=== PATIENT | male | born 1965 | race Caucasian/White ===

== ENCOUNTER 2020-06-05 08:39 | Inpatient (IN) | payer MEDICARE, MEDICAID, SELFPAY ==
[2020-06-05] VITALS (89 sets, daily range): BP systolic 112–160; BP diastolic 72–109; PULSE 91–134; RESP 13–29; TEMP 36.9–37.6; O2SAT 82–97; BMI 26.6
--- NOTE | 2020-06-05 08:46 | W.ED.SOB ---
HPI - SOB/Dyspnea General: Chief Complaint: Fever Stated Complaint: PNEUMONIA, INCREASED TEMP Time Seen by Provider: 06/05/20 08:44 History of Present Illness: HPI Narrative: 55-year-old male who has a history of MS who was accepted by the hospitalist on [facility] ED transfer from [facility]. We did not receive a call from the ED and only became aware when they called to give nursing report. On arrival patient has a cough. Has no pneumonia records reviewed. He has a PEG tube in place and is requiring oxygen mask to maintain sats. MD elicited complaint: shortness of breath Pertinent past history: aspiration Onset (ago): hour(s) Context: recent illness and anxiety Timing: constant Severity: moderate Exacerbating factors: lying flat and coughing Relieving factors: oxygen, rest and bronchodilators Known history of: aspiration pneumonia and other (MS) Associated symptoms: Reports no associated symptoms; Deny abdominal pain, chest pain, dizziness, extremity pain, fever(s), nausea, orthopnea, palpitations, polydipsia, polyuria, syncope or vomiting Treatment prior to arrival: oxygen, bronchodilator and other (Antibiotics) Review of Systems Const: Denies: fever(s), chills, body aches, fatigue, malaise or night sweats Card: Denies: chest pain, palpitations, irregular heart rhythm, edema, syncope, dyspnea on exertion, orthopnea or leg pain with exertion Resp: Reports: dyspnea, productive cough and wheezing; Denies: non-productive cough GI: Denies: abdominal pain, nausea, vomiting, hematemesis, coffee ground emesis, dysphagia, heartburn, diarrhea, constipation, GI cramping, hematochezia or melena : Denies: flank pain, difficulty urinating, dysuria, urinary frequency, urinary urgency, urinary incontinence or hematuria Musc: Denies: neck pain, back pain, extremity pain, extremity swelling, joint pain or joint swelling Skin/Breast: Denies: rash, pruritus or erythema Neuro: Denies: headache(s), numbness in extremities, weakness in extremities, sensory changes, lack of coordination, difficulty walking, frequent falls, dizziness, vertigo or confusion Psych: Denies: anxiety, depression, loss of interest, visual hallucinations, auditory hallucinations, suicidal ideation or homicidal ideation Endo: Denies: polyuria, polydipsia, tired all the time or cold intolerance Peewee/Lymph: Denies: easy bruising, easy bleeding, petechiae, enlarged lymph nodes or tender lymph nodes PFSH ED PFSH: Medical History Acute and chronic respiratory failure with hypoxia Aspiration pneumonia Depression DNR (do not resuscitate) Hypertension Multiple sclerosis [facility] resident Surgical History (Updated 06/05/20 @ 13:11 by Shimon Mccann MD) H/O right inguinal hernia repair H/O umbilical hernia repair S/P percutaneous endoscopic gastrostomy (PEG) tube placement S/P rotator cuff repair Family History (Updated 06/05/20 @ 13:10 by Shimon Mccann MD) Other Dementia Psychiatric illness Social History (Updated 06/05/20 @ 13:11 by Shimon Mccann MD) Adopted: No Caregiver/support person: Yes Lives independently: No Housing: Retirement Physical Exam Const: COMMON NORMALS: no acute distress GENERAL APPEARANCE: cooperative and comfortable HENMT: COMMON NORMALS: normocephalic, atraumatic, hearing grossly normal bilaterally, external ears normal, EAC's normal, TM's normal bilaterally, Normal nasal mucous membranes and turbinates present, moist oral mucous membranes and oropharynx normal HEAD & SCALP: normocephalic and atraumatic NOSE: Normal nasal mucous membranes and turbinates present EXTERNAL EAR: Yes external ears normal EXTERNAL AUDITORY CANAL: EAC's normal TYMPANIC MEMBRANE: TM's normal bilaterally Eye: COMMON NORMALS: Equal, round and reactive pupils present, EOMs intact bilaterally, conjunctivae normal and no scleral icterus CONJUNCTIVA: Yes conjunctivae normal PUPIL: Yes Equal, round and reactive pupils present Neck/C-Spine: COMMON NORMALS: full ROM, no lymphadenopathy, supple and no JVD Lymph: LYMPHATIC: no lymphadenopathy noted and no lymphedema noted Resp: AUSCULTATION: rales, wheezes, diminished lung sounds and bronchial breath sounds Cardio: COMMON NORMALS: no JVD, regular rate, regular rhythm and No murmurs present (Cardio) RATE: regular rate RHYTHM: regular rhythm GI: COMMON NORMALS: Soft to palpation and No hepatosplenomegaly present AUSCULTATION: Yes normoactive bowel sounds PALPATION: Yes Soft to palpation, No Tenderness to palpation present (GI), No Guarding due to palpation present (GI) and Yes No hepatosplenomegaly present Extremity: COMMON NORMALS: normal to inspection, capillary refill normal, no clubbing, cyanosis or edema, no calf tenderness and no pedal edema Skin: COMMON NORMALS: no rashes or lesions noted GENERAL SKIN EXAM: no rashes or lesions noted Course Vital Signs: Vital signs: Vital Signs Temperature 99.6 F 06/05/20 08:48 Pulse Rate 106 H 06/05/20 12:30 Respiratory Rate 24 H 06/05/20 12:30 Blood Pressure 135/84 06/05/20 12:30 Pulse Oximetry 90 06/05/20 12:30 Discharge Plan Discharge Patient Disposition: Admitted As Inpatient Admit Provider: Shimon Mccann Discharge Date/Time: 06/05/20 11:02 Coding Level of Care Code ED Light Rail Signal Technician for Macie Klein
--- NOTE | 2020-06-05 10:46 | PC.RESP ---
Dr. Valencia requested NIF. NIF results Greater than negative 60.
--- NOTE | 2020-06-05 11:00 | PC.NURSE ---
admission Patient was transferred to this unit from ED. Pt was able to voice wants and needs and stated that his head and his buttocks hurt at an 8/10. Red areas were noted to buttocks and groin. Venturi mask was in place at 4L/min. Respirations were shallow and non labored. 20 G IV was intact in the left hand. Patient is alert and oriented X 3.
[2020-06-05 11:49] LABS: Basophils # 0.1 10^3/uL (0.0-0.1); Basophils % 0.2 %; Eosinophils % 0.1 %; Hematocrit 48.3 % (42.0-52.0); Hemoglobin 15.9 g/dL (11.7-16.6); Lymphocytes # 0.7 10^3/uL (0.8-4.8); Lymphocytes % 3.1 %; Mean Corpuscular HGB Conc 32.9 g/dL (30.0-36.0); Mean Corpuscular Hemoglobin 28.5 pg (28.0-34.0); Mean Corpuscular Volume 86.7 fL (80-94); Monocytes # 1.2 10^3/uL (0.2-0.9); Monocytes % 5.4 %; Neutrophils % 90.3 %; Nucleated Red Blood Cells % 0 %; Platelet Count 177 10^3/cmm (130-400); Red Blood Count 5.57 10^6/uL (4.1-5.3); Red Cell Distribution Width 14.6 % (12.1-15.1); White Blood Count 22.2 10^3/uL (4.0-10.0)
--- NOTE | 2020-06-05 12:05 | PC.NURSE ---
Attempted to call mother, Kristin, no answer.
--- NOTE | 2020-06-05 12:05 | PC.NURSE ---
[facility] for [facility] administration. They called back and stated they would bring it.
--- NOTE | 2020-06-05 12:35 | PC.NURSE ---
Kristin, mother on phone, up dated her on pt's condition; pneumonia, on oxygen, NPO for now, suspect aspiration pneumonia, meds will be per PEG. Pt has been repositioned.
[2020-06-05 12:48] LABS: Thyroid Stimulating Hormone 0.84 uIU/mL (0.27-4.20)
--- NOTE | 2020-06-05 13:03 | P.HP_ITS ---
Providers/Chief Complaint Admitting Physician: Shimon Mccann MD Chief Complaint: PNEUMONIA, INCREASED TEMP History of Present Illness Jeancarlos Cota is a 55 year old male with past medical history of progressive multiple sclerosis with multiple neurological deficit on PEG tube feeds because of fear of aspiration, chronic aspiration as patient continues to eat, hypertension, PEG tube placement, history of bilateral lower lobe pneumonia who lives at [facility], DNR who was transferred from [facility] today. Most of the history given through the nurse at [facility]. Patient has been at his baseline health till a week ago then then he started having difficulty in breathing and was requiring oxygen to keep her saturation over 92%. Chest x-ray done on June 01 was consistent with mild pneumonia at [facility] he was started on doxycycline. He was also started on 3 days of IV steroids. After that patient had mild improvement in oxygen requirement. Today morning during evaluation he was saturating 86% which did not improve with 4 L of nasal cannula supplementation so he was brought in to the hospital. [facility] living asked for the report patient has not had any fever, nausea, diarrhea, vomiting. On my evaluation patient was saturating 92% on 5 L Venturi mask, blood pressure 135/80 mmHg, heart rate of 102 bpm, febrile up to 99.6 Fahrenheit. Review of Systems General: Reports: ROS unobtainable due to mental status Medications/Allergies Home Medications Medication Instructions Recorded Confirmed Last Taken Type Lactobacillus acidophilus 1 tab PO DAILY 06/05/20 06/05/20 06/05/20 History [Acidophilus] albuterol sulfate 2.5 mg INHALATION Q4H PRN 06/05/20 06/05/20 06/05/20 History amlodipine 10 mg PO DAILY 06/05/20 06/05/20 06/05/20 History atenolol 100 mg PO DAILY 06/05/20 06/05/20 06/05/20 History baclofen 10 mg PO QID 06/05/20 06/05/20 06/05/20 History calcium carbonate 500 mg PO DAILY 06/05/20 06/05/20 06/05/20 History cetirizine 10 mg PO DAILY 06/05/20 06/05/20 06/05/20 History dalfampridine [Ampyra] 10 mg PO Q12H 06/05/20 06/05/20 06/05/20 History docusate sodium [Colace] 100 mg PO BID 06/05/20 06/05/20 06/05/20 History doxycycline hyclate 100 mg PO BID 06/05/20 06/05/20 06/05/20 History gabapentin 300 mg PO TID 06/05/20 06/05/20 06/05/20 History hydrocodone-acetaminophen 1 tab PO Q6H PRN 06/05/20 06/05/20 06/04/20 History levalbuterol HCl [Xopenex] 1.25 mg INHALATION Q6H PRN 06/05/20 06/05/20 06/04/20 History multivitamin 1 tab PO DAILY 06/05/20 06/05/20 06/05/20 History polyethylene glycol 3350 [Miralax] 17 g PO DAILY 06/05/20 06/05/20 06/05/20 History potassium chloride 20 meq PO BID 06/05/20 06/05/20 06/05/20 History sertraline 50 mg PO DAILY 06/05/20 06/05/20 06/05/20 History teriflunomide [Aubagio] 14 mg PO DAILY 06/05/20 06/05/20 06/04/20 History Allergies Allergy/AdvReac Type Severity Reaction Status Date / Time amoxicillin Allergy Unknown Unknown Verified 06/05/20 11:00 erythromycin base Allergy Unknown Unknown Verified 06/05/20 11:00 glatiramer (copolymer 1) Allergy Unknown Unknown Verified 06/05/20 11:00 [From Copaxone] guaifenesin [From Mucinex] Allergy Unknown Unknown Verified 06/05/20 11:00 interferon beta-1a Allergy Unknown Unknown Verified 06/05/20 11:00 [From Avonex] PFSH Acute PFSH: Medical History Acute and chronic respiratory failure with hypoxia Aspiration pneumonia Depression DNR (do not resuscitate) Hypertension Multiple sclerosis [facility] resident Surgical History (Updated 06/05/20 @ 13:11 by Shimon Mccann MD) H/O right inguinal hernia repair H/O umbilical hernia repair S/P percutaneous endoscopic gastrostomy (PEG) tube placement S/P rotator cuff repair Family History (Updated 06/05/20 @ 13:10 by Shimon Mccann MD) Other Dementia Psychiatric illness Social History (Updated 06/05/20 @ 13:11 by Shimon Mccann MD) Adopted: No Caregiver/support person: Yes Lives independently: No Housing: [facility] Vitals/I&O/Wt Last Vital Signs Temp 99.6 F 06/05/20 08:48 Pulse 106 H 06/05/20 12:30 Resp 24 H 06/05/20 12:30 BP 135/84 06/05/20 12:30 Pulse Ox 90 06/05/20 12:30 06/04/20 06/05/20 06/05/20 22:59 06:59 14:59 Output Total 400 / 400 Balance -400 / -400 Weight last 48 hrs Weight 72.6 kg Physical Exam Narrative: EXAM NARRATIVE: General: No acute distress, AO x3, quadriplegic, communicating through garbled words HEENT: PERRLA, pupils bilaterally equal and reactive Chest: Normal vesicular breath sounds, bilateral coarse crackles present right more than left anterior more than posterior, equal good air entry bilaterally CVS: S1-S2 regular, no murmurs, tachycardia, no gallops, no rubs Abdomen: Soft, nontender, no organomegaly, bowel sounds present Neuro: Quadriplegic, AO x3 Data : 06/05/20 11:39 A&P Assessment and plan (1) Sepsis: Status: Acute (2) Acute and chronic respiratory failure with hypoxia: Status: Acute (3) Multiple sclerosis: Status: Acute (4) Aspiration pneumonia: Status: Acute (5) S/P percutaneous endoscopic gastrostomy (PEG) tube placement: Status: Acute (6) Hypertension: Status: Acute (7) DNR (do not resuscitate): Status: Acute (8) Depression: Status: Acute (9) [facility] resident: Status: Acute Additional A&P Information Admit to ICU. Sepsis along with acute on chronic hypoxic respiratory failure due to aspiration pneumonia in setting of multiple sclerosis.: Sepsis criteria met with tachycardia, fever, leukocytosis. Patient hypoxic on room air. Patient has PEG tube but he continues to eat. Patient is aware that he will have continuous aspiration if he continues to eat. Patient is a DNR. COVID-19 has been sent out from the ER. Isolation precaution Dr. dempsey Check CBC, CMP, procalcitonin, lactate, TSH, blood culture, sputum culture, UA, urine culture, MRSA, urine for Legionella. For now start patient on vancomycin and Zosyn both renally dosed. Normal saline to 75 cc/h. Advair and Spiriva. Oxygen supplementation keeping saturation over 90%. Check NIF study. Patient is DNR. If abnormal will start patient on positive airway ventilation with BiPAP or high flow. Keep mean arterial pressure over 65 mmHg. Hypertension: For now blood pressure is normal. Continue with home dose of amlodipine and atenolol. N.p.o. Heparin for DVT prophylaxis. Protonix for PUD prophylaxis. Continue chronic medication like gabapentin, sertraline, calcium carbonate. We will change medication as per the clinical picture and results of the blood work. Patient's mother Ms. Foster has been updated regarding his health and all the questions have been answered. Attestations Medical Necessity Statement*: Sepsis, acute on hypoxic respiratory failure, pneumonia, multiple sclerosis Time Spent in Patient Care: Greater than 35 minutes (>than 50% of time spent in counselling and/or direct pt care on unit) . Coding Level of Care Code Acute Social Work Program Coordinator for [facility] Fwd Diagnoses Sepsis A41.9 Acute and chronic respiratory failure with hypoxia J96.21 Multiple sclerosis G35 Aspiration pneumonia J69.0 S/P percutaneous endoscopic gastrostomy (PEG) tube placement Z93.1 Hypertension I10 DNR (do not resuscitate) Z66 Depression F32.9 [facility] resident Z59.3
--- NOTE | 2020-06-05 13:43 | PC.NURSE ---
Mother, Kristin, not answering phone, continues ringing, allergy list to be clarified.
[2020-06-05] MEDS: HYDROcodone-acetaminophen 10-325 mg Tablet 1 TAB PO ×2 (13:59→22:27)
[2020-06-05] MEDS: sodium chloride 0.9% 1,000 ML 100 ML IV ×2 (14:00→22:25)
[2020-06-05] MEDS: enoxaparin 40 mg/0.4 mL Syringe SUBCUT (14:00)
[2020-06-05] MEDS: gabapentin 300 mg Capsule PO ×2 (14:01→22:25)
[2020-06-05] MEDS: morphine 4 mg/mL SDV 1 mL 2 MG IVP ×2 (16:09→19:09)
[2020-06-05] MEDS: aztreonam 2,000 MG in sodium chloride 0.9% (plus) 100 ML 200 MG IV ×2 (16:10→22:28)
[2020-06-05 16:18] LABS: Lactate (Lactic Acid level) 1.3 mmol/L (0.5-2.2)
[2020-06-05 16:19] LABS: ABG PCO2 35.1 mmHg (35-45); ABG PH Result 7.43 (7.35-7.45); Alveolar-Arterial Oxygen Gradi 61.6 mmHg (5-10); Arterial Blood Gas Hematocrit 50.1 % (42-52); Base Excess ABG -0.1 mmol/L (-2.0-2.0); Blood Gas Allen Test Pos; Blood Gas Sample Site Brachial, right; Blood Gas Sample Type Arterial; Carboxyhemoglobin 1.6 %THgb (0.4-20.1); HCO3 ABG 23.5 mmol/L (22-26); HGB O2 Sat 83.9 % (95-100); Ionized Calcium Level - ABG 1.1 mmol/L (1.1-1.4); Methemoglobin 0.9 % (0.4-1.5); Oxygen Device OXY MASK; Oxygen Saturation ABG 86.1; Potassium Level - ABG 3.7 mmol/L (3.5-5.0); Total Hemoglobin 16.3 g/dL (14-18)
--- NOTE | 2020-06-05 16:39 | PC.NURSE ---
Desecration noted. O2 sats at 82%, increased lpm per oxymask to 15liers. O2 sats started increasing to 87-88% but then declined again . Rt called to bedside. Dr Cerda notified. Morphine 1 mg IV and ABGs ordered and completed. Pt needed repositioning, done with multiple attempts until he was comfortable. RT now at bedside starting Heated Hi flowat 90%FIO2 and 20lpm.
--- NOTE | 2020-06-05 16:49 | PC.NURSE ---
Phone call Mother called to check on patients status and was updated.
--- NOTE | 2020-06-05 17:03 | XRR_ITS ---
PROCEDURE INFORMATION: Exam: XR Chest, 1 View Exam date and time: 06/05/2020 8:46 PM Age: 55 years old Clinical indication: Condition or disease; Lung condition and disease; Pneumonia; Additional info: Pna TECHNIQUE: Imaging protocol: XR of the chest Views: 1 view. COMPARISON: CR Chest 1 [place] [id number] 10/16/2019 7:41 AM FINDINGS: Lungs: Pulmonary venous congestion. Areas of parenchymal consolidation of the lower lungs. Pleural space: No pneumothorax. Heart/Mediastinum: Cardiomegaly. Vasculature: Calcified thoracic aorta. Bones/joints: Osteopenia. Soft tissues: The chest is limited by rotation. Other findings: Likely small left-sided effusion. XR/XR chest 1V portable [id number] IMPRESSION: 1. Cardiomegaly with pulmonary venous congestion. 2. Areas of consolidation lower lungs greater on the left which could indicate partial atelectasis or superimposed pneumonia. 3. Likely small left effusion.
[2020-06-05] MEDS: nystatin powder 15 gm Btl 1 APPLIC TOPICAL (17:20)
[2020-06-05] MEDS: baclofen 10 mg Tablet PO ×2 (17:21→22:25)
[2020-06-05 17:46] LABS: Reflex Lactate Order REFLEX LACTIC ORDERD
[2020-06-05 17:56] LABS: Bilirubin Urine Neg (NEGATIVE); Blood Urine Neg (Negative); Glucose Urine UA Norm (Normal); Ketones Urine Negative (Negative); Leukocyte Esterase Urine 1+ (Negative); Nitrate Urine Negative (Negative); Protein Urine Neg (Negative); Specific Gravity, Urine 1.005 (1.005-1.030); Sulfosalicylic Acid Urine Negative (Negative); Urine Appearance Hazy (CLEAR); Urine Color Yellow (Yellow); Urobilinogen Urine Norm (Negative); pH Urine 8 (5-7)
[2020-06-05 17:57] LABS: Add Urine Culture? Yes; Amorphous Sediment Urine 1+; Bacteria Urine 2+; Squamous Epithelial Cell Urine 0-4 (0-5)
[2020-06-05 19:33] LABS: Lactic Acid level (Lactate) 1.7 mmol/L (0.5-2.2)
[2020-06-05 19:46] LABS: NT Pro B Type Natriuretic Pept 806 pg/mL (0-125)
[2020-06-05 19:57] LABS: Alanine Aminotransferase 28 U/L (0-41); Albumin Level 3.4 g/dL (3.5-5.2); Alkaline Phosphatase 78 IU/L (40-130); Anion Gap 22.9 (5-19); Aspartate Amino Transferase 17 U/L (0-40); Blood Urea Nitrogen 9 mg/dL (6-20); Calcium 8.3 mg/dL (8.5-10.5); Carbon Dioxide 17 mmol/L (22-29); Chloride 92 mmol/L (98-107); Globulin 2.6 g/dL (1.3-4.6); Glomerular Filtration Rate 495.2 mL/min (90-130); Glucose 132 mg/dL (65-115); Iron 163 ug/dL (59-158); Osmolality Calculated 264 mOsm/kg (285-295); Potassium 3.9 mmol/L (3.5-5.1); Sodium 128 mmol/L (136-145); Total Bilirubin 1.8 mg/dL (0.15-1.2)
[2020-06-05 20:07] LABS: Percent Saturation 81.9 % (20-50); Total Iron Binding Capacity 199 mcg/dl; Unsaturated Iron Binding 36 ug/dL (112-347)
[2020-06-06] VITALS (42 sets, daily range): BP systolic 94–152; BP diastolic 66–94; PULSE 91–122; RESP 13–25; TEMP 36.7; O2SAT 85–96
[2020-06-06 05:52] LABS: Hematocrit 45.8 % (42.0-52.0); Mean Corpuscular HGB Conc 32.8 g/dL (30.0-36.0); Mean Corpuscular Hemoglobin 28.7 pg (28.0-34.0); Mean Corpuscular Volume 87.6 fL (80-94); Mean Platelet Volume 11.3 fL (7.4-10.4); Platelet Count 136 10^3/cmm (130-400); Red Blood Count 5.23 10^6/uL (4.1-5.3); Red Cell Distribution Width 14.5 % (12.1-15.1); White Blood Count 20.3 10^3/uL (4.0-10.0)
[2020-06-06 06:40] LABS: Absolute Segmented Neutrophil 17.7 10/cmm (1.6-7.1); Lymphocytes 1 %; Monocytes Absolute 0.4 10^3/cmm (0.1-0.6); Segmented Neutrophils 87 %; Total Cells Counted 100 (0-100)
[2020-06-06 06:41] LABS: Absolute Neutrophil 19.7 10^3/cmm (1.4-6.5); Platelet Estimate Decreased (Normal)
[2020-06-06 06:43] LABS: Alanine Aminotransferase 27 U/L (0-41); Albumin Level 2.9 g/dL (3.5-5.2); Alkaline Phosphatase 74 IU/L (40-130); Anion Gap 13.7 (5-19); Aspartate Amino Transferase 16 U/L (0-40); Blood Urea Nitrogen 8 mg/dL (6-20); Calcium 8.1 mg/dL (8.5-10.5); Carbon Dioxide 20 mmol/L (22-29); Chloride 104 mmol/L (98-107); Globulin 2.5 g/dL (1.3-4.6); Glucose 173 mg/dL (65-115); Osmolality Calculated 278 mOsm/kg (285-295); Potassium 3.7 mmol/L (3.5-5.1); Sodium 134 mmol/L (136-145); Total Bilirubin 1.2 mg/dL (0.15-1.2); Total Protein 5.4 g/dL (6.6-8.7)
[2020-06-06] MEDS: aztreonam 2,000 MG in sodium chloride 0.9% (plus) 100 ML 200 MG IV ×3 (08:02→22:43)
[2020-06-06] MEDS: atenolol 50 mg Tablet 100 MG PO (08:03)
[2020-06-06] MEDS: sertraline 50 mg Tablet PO (08:03)
[2020-06-06] MEDS: nystatin powder 15 gm Btl 1 APPLIC TOPICAL ×2 (08:03→18:27)
[2020-06-06] MEDS: gabapentin 300 mg Capsule PO ×3 (08:03→22:43)
[2020-06-06] MEDS: calcium carbonate 500 mg Chew Tablet PO (08:04)
[2020-06-06] MEDS: baclofen 10 mg Tablet PO ×4 (08:04→22:43)
[2020-06-06] MEDS: amlodipine 10 mg Tablet PO (08:04)
[2020-06-06 08:11] LABS: Coronavirus Lab Test PTC NOT DETECTED
[2020-06-06] MEDS: HYDROcodone-acetaminophen 10-325 mg Tablet 1 TAB PO ×2 (09:37→16:50)
--- NOTE | 2020-06-06 09:52 | PM.PN ---
Subjective Subjective: Interval history: Patient continues to remain on high flow. He continues to remain on high flow. At present he is on 85% 35 L saturating 91%. Patient remains to look comfortable. He has remained hemodynamically stable. Vitals/I&O/Wt Last Vital Signs Temp 98.0 F 06/06/20 08:00 Pulse 115 H 06/06/20 08:41 Resp 19 H 06/06/20 08:41 BP 152/94 06/06/20 08:00 Pulse Ox 91 06/06/20 08:41 06/05/20 06/06/20 06/06/20 22:59 06:59 14:59 Intake Total 1450 / 1550 180 / 180 Output Total 400 / 800 1400 / 2200 Balance 1050 / 750 -1400 / -650 180 / 180 Weight last 48 hrs Weight 72.6 kg Physical Exam Narrative: EXAM NARRATIVE: General: No acute distress, AO x3, quadriplegic, communicating through garbled words HEENT: PERRLA, pupils bilaterally equal and reactive Chest: Normal vesicular breath sounds, bilateral coarse crackles present right more than left anterior more than posterior, equal good air entry bilaterally CVS: S1-S2 regular, no murmurs, tachycardia, no gallops, no rubs Abdomen: Soft, nontender, no organomegaly, bowel sounds present Neuro: Quadriplegic, AO x3 Data : 06/06/20 05:25 06/06/20 05:25 Micro: Microbiology 06/05/20 14:30 Legionella Urinary Antigen - Final Urine Catheterized 06/05/20 14:26 Blood Culture - Preliminary Blood SPECIMEN COLLECTED A&P Assessment and plan (1) ARDS (adult respiratory distress syndrome): Status: Acute (2) Sepsis: Status: Acute (3) Acute and chronic respiratory failure with hypoxia: Status: Acute (4) Multiple sclerosis: Status: Acute (5) Aspiration pneumonia: Status: Acute (6) S/P percutaneous endoscopic gastrostomy (PEG) tube placement: Status: Acute (7) Hypertension: Status: Acute (8) DNR (do not resuscitate): Status: Acute (9) Depression: Status: Acute (10) [facility] resident: Status: Acute Additional A&P Information ARDS: Secondary to chronic aspiration with multiple sclerosis. Sepsis along with acute on chronic hypoxic respiratory failure due to aspiration pneumonia in setting of multiple sclerosis.: Sepsis criteria met with tachycardia, fever, leukocytosis. Continue with room air. Keep n.p.o. Medications through PEG tube. For now continue with vancomycin and aztreonam. As patient has a history of possible allergy to penicillin. We can do a penicillin test later in the day. Stop IV fluids for now. Given ARDS we will try to get him negative. Give Lasix 40 mg IV stat. Goal 1 to 2 L negative in next 24 hours. DuoNeb's as needed, DuoNebs every 4 hours, budesonide twice daily. Chest PT with chest vest and saline nebulization. Most likely will require frequent suctioning as patient has poor cough because of underlying multiple sclerosis. Patient is DNR. C/w solumedrol 40 mg IV QD for now. NIF study done yesterday We will consult pulmonology. Case discussed with Dr. Rowan. He agrees with the same. Keep mean arterial pressure over 65 mmHg. Hypertension: For now blood pressure is normal. Continue with home dose of amlodipine and atenolol. N.p.o. Heparin for DVT prophylaxis. Protonix for PUD prophylaxis. Continue chronic medication like gabapentin, sertraline, calcium carbonate. We will change medication as per the clinical picture and results of the blood work. Patient's mother Ms. Foster has been updated regarding his health and all the questions have been answered. Attestations Medical Necessity Statement*: ARDS, Sepsis, Time Spent in Patient Care: Greater than 35 minutes (>than 50% of time spent in counselling and/or direct pt care on unit). Critical Care Time: Critical Care Time (min): 80 Coding Level of Care Code Acute Credit Risk Review Officer for [facility] Fwd Diagnoses ARDS (adult respiratory distress syndrome) J80 Sepsis A41.9 Acute and chronic respiratory failure with hypoxia J96.21 Multiple sclerosis G35 Aspiration pneumonia J69.0 S/P percutaneous endoscopic gastrostomy (PEG) tube placement Z93.1 Hypertension I10 DNR (do not resuscitate) Z66 Depression F32.9 [facility] resident Z59.3
--- NOTE | 2020-06-06 10:32 | CT_ITS ---
WS: [id number] CT CHEST WITHOUT INTRAVENOUS CONTRAST HISTORY: Pneumonia TECHNIQUE: Contiguous 5 mm axial imaging performed on the thorax. Coronal and sagittal reformats are submitted. All CT scans at [facility] use at least one of these dose optimization techniq ues: automated exposure control; mA and/or kV adjustment per patient size (includes targeted exams wh ere dose is matched to clinical indication); or iterative reconstruction. CONTRAST: None DLP: 905.64 mGy-cm. COMPARISON: 10/10/2019 and 12/26/2015 Lungs and central airway: Multi lobar areas of dense consolidation. There is nodularity within these areas of consolidation. Some consolidations. The periphery while others extend to the periphery of th e lungs. Majority of the consolidation is in the RIGHT upper and lower lobes. There is atelectasis at the lung bases bilaterally. Small LEFT pleural effusion. Pleura: Small LEFT pleural effusion. Heart and pericardium: Normal size heart. No pericardial effusion. Mediastinum and idania: No adenopathy. Vessels: Mild atherosclerosis aorta. Normal size pulmonary artery. Chest wall and lower neck: No soft tissue masses. Upper abdomen: There is a PEG tube present. Prior cholecystectomy. Pleural-based cystic mass with ca lcification at the RIGHT lung base and posterior to the liver. Stable over multiple prior years. Osseous structures: No osteoblastic or osteolytic bone disease. CT/CT chest wo con [id number] IMPRESSION: 1. Multifocal areas of dense consolidation and nodularity. Mild improvement si nce 10/10/2019. Pneumonia and chronic interstitial lung disease within the diff erential. Recommend continued CT follow-up to be ensure resolution and document stability. Bronchoscopy may be necessary for diagnosis. 2. Dense consolidations at the lung bases from atelectasis and small LEFT pleu ral effusion. 3. Cardiomegaly. 4. No adenopathy on this unenhanced exam. 5. PEG tube and prior cholecystectomy.
[2020-06-06 10:47] LABS: ABG PCO2 38.5 mmHg (35-45); ABG PH Result 7.41 (7.35-7.45); Alveolar-Arterial Oxygen Gradi 497.7 mmHg (5-10); Arterial Blood Gas Hematocrit 48.2 % (42-52); Base Excess ABG -0.2 mmol/L (-2.0-2.0); Blood Gas Sample Site Brachial, right; Blood Gas Sample Type Arterial; Carboxyhemoglobin 1.2 %THgb (0.4-20.1); HCO3 ABG 24.3 mmol/L (22-26); HGB O2 Sat 88.2 % (95-100); Ionized Calcium Level - ABG 1.2 mmol/L (1.1-1.4); Methemoglobin 0.7 % (0.4-1.5); Oxygen Device NC; PO2 ABG 48.3 mmHg (80.0-100.0); Potassium Level - ABG 3.5 mmol/L (3.5-5.0); Total Hemoglobin 15.7 g/dL (14-18)
[2020-06-06] MEDS: FUROsemide 10 mg/mL SDV 4mL 40 MG IVP (11:18)
--- NOTE | 2020-06-06 11:50 | PC.NURSE ---
CT Patient was taken to CT between 1030 and 1100. Vitals WNL. Patient tolerated well.
--- NOTE | 2020-06-06 13:49 | PC.NURSE ---
Attempted to contact mother, met with busy signal, regarding contacting Father Gibran, per her request. Father Gibran, contacted. He stated he was in [place] he would call Syed Kimbrough, to come, who is in [place].
[2020-06-06] MEDS: enoxaparin 40 mg/0.4 mL Syringe SUBCUT (14:07)
[2020-06-06] MEDS: ipratropium-albuterol 3 mL Neb INHALATION ×2 (14:32→23:27)
--- NOTE | 2020-06-06 16:05 | PC.NURSE ---
Addendum entered by GENESIS Oliveros 06/06/20 16:10: Sponge Buffer wishes to be called in decline of condition. [phone] Original Note: Color Straining Bag Washer came to visit patient and introduced himself as Father Luis E. Patient welcomed and thanked him for his visit.
[2020-06-06 19:06] LABS: Vancomycin Trough 20.3 ug/mL (10-15)
[2020-06-06] MEDS: budesonide 0.5 mg/2 mL Neb INHALATION (19:35)
[2020-06-06] MEDS: morphine 4 mg/mL SDV 1 mL 2 MG IVP (22:44)
[2020-06-07] VITALS (33 sets, daily range): BP systolic 94–130; BP diastolic 62–89; PULSE 77–102; RESP 13–22; TEMP 36.3–37; O2SAT 86–97
[2020-06-07] MEDS: ipratropium-albuterol 3 mL Neb INHALATION ×4 (02:00→20:05)
[2020-06-07 04:40] LABS: Basophils % 0.1 %; Hemoglobin 13.8 g/dL (11.7-16.6); Lymphocytes # 0.6 10^3/uL (0.8-4.8); Lymphocytes % 2.8 %; Mean Corpuscular HGB Conc 33.7 g/dL (30.0-36.0); Mean Corpuscular Hemoglobin 29.1 pg (28.0-34.0); Mean Corpuscular Volume 86.5 fL (80-94); Mean Platelet Volume 11.1 fL (7.4-10.4); Monocytes # 1.1 10^3/uL (0.2-0.9); Monocytes % 5.7 %; Neutrophils # 17.9 10^3/uL (1.8-7.7); Neutrophils % 90.7 %; Nucleated Red Blood Cells % 0 %; Platelet Count 170 10^3/cmm (130-400); Red Blood Count 4.74 10^6/uL (4.1-5.3); Red Cell Distribution Width 14.4 % (12.1-15.1); White Blood Count 19.7 10^3/uL (4.0-10.0)
[2020-06-07] MEDS: aztreonam 2,000 MG in sodium chloride 0.9% (plus) 100 ML 200 MG IV ×3 (07:26→22:13)
[2020-06-07] MEDS: amlodipine 10 mg Tablet PO (08:49)
[2020-06-07] MEDS: calcium carbonate 500 mg Chew Tablet PO (08:49)
[2020-06-07] MEDS: atenolol 50 mg Tablet 100 MG PO (08:49)
[2020-06-07] MEDS: baclofen 10 mg Tablet PO ×4 (08:49→22:12)
[2020-06-07] MEDS: sertraline 50 mg Tablet PO (08:49)
[2020-06-07] MEDS: gabapentin 300 mg Capsule PO ×3 (08:50→22:12)
[2020-06-07] MEDS: nystatin powder 15 gm Btl 1 APPLIC TOPICAL ×2 (08:50→17:56)
[2020-06-07] MEDS: budesonide 0.5 mg/2 mL Neb INHALATION ×2 (10:33→19:52)
[2020-06-07] MEDS: HYDROcodone-acetaminophen 10-325 mg Tablet 1 TAB PO ×2 (10:41→22:12)
[2020-06-07 10:43] LABS: ABG PCO2 37.5 mmHg (35-45); ABG PH Result 7.46 (7.35-7.45); Alveolar-Arterial Oxygen Gradi 440.4 mmHg (5-10); Base Excess ABG 2.7 mmol/L (-2.0-2.0); Blood Gas Allen Test Pos; Blood Gas Sample Site Radial, left; Blood Gas Sample Type Arterial; Carboxyhemoglobin 0.3 %THgb (0.4-20.1); HCO3 ABG 26.6 mmol/L (22-26); HGB O2 Sat 94.8 % (95-100); Ionized Calcium Level - ABG 1.2 mmol/L (1.1-1.4); Methemoglobin 0.7 % (0.4-1.5); Oxygen Saturation ABG 95.8; PO2 ABG 70.4 mmHg (80.0-100.0); Potassium Level - ABG 3.2 mmol/L (3.5-5.0); Total Hemoglobin 14.3 g/dL (14-18)
[2020-06-07] MEDS: enoxaparin 40 mg/0.4 mL Syringe SUBCUT (13:48)
--- NOTE | 2020-06-07 16:01 | P.PN_ITS ---
Subjective Subjective: Interval history: Patient continues to remain on high flow. He continues to remain on high flow. At present he is on 85% 35 L saturating 91%. Patient remains to look comfortable. He has remained hemodynamically stable. Vitals/I&O/Wt Last Vital Signs Temp 97.3 F L 06/07/20 08:00 Pulse 89 06/07/20 15:00 Resp 16 06/07/20 15:00 BP 105/73 06/07/20 15:00 Pulse Ox 92 06/07/20 15:00 06/07/20 06/07/20 06/07/20 06:59 14:59 22:59 Intake Total 350 / 2010 100 / 100 250 / 350 Output Total 300 / 2300 Balance 50 / -290 100 / 100 250 / 350 Physical Exam Narrative: EXAM NARRATIVE: General: No acute distress, AO x3, quadriplegic, communicating through garbled words HEENT: PERRLA, pupils bilaterally equal and reactive Chest: Normal vesicular breath sounds, bilateral coarse crackles present right more than left anterior more than posterior, equal good air entry bilaterally CVS: S1-S2 regular, no murmurs, tachycardia, no gallops, no rubs Abdomen: Soft, nontender, no organomegaly, bowel sounds present Neuro: Quadriplegic, AO x3 Urinary Catheter Management^: Wei: Cath Placed During This Visit: no Reason for Continuing Indwelling Catheter: Accurate Measurement of Urinary Output in Critically Ill Patients Data : 06/07/20 03:52 06/06/20 05:25 Micro: Microbiology 06/05/20 14:26 Blood Culture - Preliminary Blood NEGATIVE TO DATE 06/05/20 14:27 MRSA Culture - Final Nose A&P Assessment and plan (1) ARDS (adult respiratory distress syndrome): Status: Acute (2) Sepsis: Status: Acute (3) Acute and chronic respiratory failure with hypoxia: Status: Acute (4) Multiple sclerosis: Status: Acute (5) Aspiration pneumonia: Status: Acute (6) S/P percutaneous endoscopic gastrostomy (PEG) tube placement: Status: Acute (7) Hypertension: Status: Acute (8) DNR (do not resuscitate): Status: Acute (9) Depression: Status: Acute (10) senior living resident: Status: Acute Additional A&P Information ARDS: Secondary to chronic aspiration with multiple sclerosis. Sepsis along with acute on chronic hypoxic respiratory failure due to aspiration pneumonia in setting of multiple sclerosis.: Sepsis criteria met with tachycardia, fever, leukocytosis. Continue with room air. Keep n.p.o. Medications through PEG tube. For now continue with vancomycin and aztreonam. As patient has a history of possible allergy to penicillin. We can do a penicillin test later in the day. Given ARDS we will try to get him negative. Patient is overall 300 cc negative Goal 1 to 2 L negative in next 24 hours. DuoNeb's as needed, DuoNebs every 4 hours, budesonide twice daily. Chest PT with chest vest and saline nebulization. Most likely will require frequent suctioning as patient has poor cough because of underlying multiple sclerosis. Patient is DNR. C/w solumedrol 40 mg IV QD for now. NIF study done yesterday showed We will consult pulmonology. Case discussed with Dr. Rowan. He agrees with the same. Keep mean arterial pressure over 65 mmHg. Hypertension: For now blood pressure is normal. Continue with home dose of amlodipine and atenolol. N.p.o. Heparin for DVT prophylaxis. Protonix for PUD prophylaxis. Continue chronic medication like gabapentin, sertraline, calcium carbonate. We will change medication as per the clinical picture and results of the blood work. Patient's mother Ms. Foster has been updated regarding his health and all the questions have been answered. If patient continues to remain on high requirement oxygen will discuss goals of care with both patient and his mother. Unfortunately patient is at high risk of aspiration because of multiple sclerosis and he wants to continue eating even though he knows that will cause him aspiration. Patient has signed off on that in the past. Given his goals patient would be most appropriate for hospice care with pleasure feeds. We will discuss with him regarding the same. Attestations Medical Necessity Statement*: ARDS, sepsis Time Spent in Patient Care: Greater than 35 minutes (>than 50% of time spent in counselling and/or direct pt care on unit) . Coding Level of Care Code Acute [employer] System Director for [facility] Diagnoses ARDS (adult respiratory distress syndrome) J80 Sepsis A41.9 Acute and chronic respiratory failure with hypoxia J96.21 Multiple sclerosis G35 Aspiration pneumonia J69.0 S/P percutaneous endoscopic gastrostomy (PEG) tube placement Z93.1 Hypertension I10 DNR (do not resuscitate) Z66 Depression F32.9 senior living resident Z59.3
[2020-06-07 21:57] LABS: Vancomycin Trough 11.1 ug/mL (10-15)
--- NOTE | 2020-06-07 23:00 | PC.NURSE ---
Received report from FELICIA Sadler. Patient is resting comfortably. Bed in lowest position. Vital signs are stable. No concerns at this time.
[2020-06-08] VITALS (35 sets, daily range): BP systolic 103–132; BP diastolic 59–81; PULSE 73–117; RESP 12–28; TEMP 36.7–36.8; O2SAT 90–98
[2020-06-08] MEDS: ipratropium-albuterol 3 mL Neb INHALATION ×4 (02:33→20:36)
[2020-06-08 04:00] LABS: Basophils % 0.1 %; Hemoglobin 13.2 g/dL (11.7-16.6); Lymphocytes # 0.7 10^3/uL (0.8-4.8); Lymphocytes % 4.5 %; Mean Corpuscular HGB Conc 33.8 g/dL (30.0-36.0); Mean Corpuscular Hemoglobin 29.3 pg (28.0-34.0); Mean Corpuscular Volume 86.7 fL (80-94); Monocytes # 0.9 10^3/uL (0.2-0.9); Monocytes % 6.3 %; Neutrophils # 12.62 10^3/uL (1.8-7.7); Nucleated Red Blood Cells % 0 %; Platelet Count 177 10^3/cmm (130-400); Red Cell Distribution Width 14.6 % (12.1-15.1); White Blood Count 14.4 10^3/uL (4.0-10.0)
[2020-06-08 04:45] LABS: Alanine Aminotransferase 14 U/L (0-41); Alkaline Phosphatase 59 IU/L (40-130); Anion Gap 14.3 (5-19); Aspartate Amino Transferase 7 U/L (0-40); Blood Urea Nitrogen 21 mg/dL (6-20); Carbon Dioxide 23 mmol/L (22-29); Chloride 106 mmol/L (98-107); Globulin 2.1 g/dL (1.3-4.6); Glucose 105 mg/dL (65-115); Osmolality Calculated 287 mOsm/kg (285-295); Potassium 3.3 mmol/L (3.5-5.1); Sodium 140 mmol/L (136-145); Total Bilirubin 0.6 mg/dL (0.15-1.2); Total Protein 5.1 g/dL (6.6-8.7)
[2020-06-08] MEDS: budesonide 0.5 mg/2 mL Neb INHALATION ×2 (08:01→20:36)
[2020-06-08] MEDS: amlodipine 10 mg Tablet PO (08:40)
[2020-06-08] MEDS: baclofen 10 mg Tablet PO ×4 (08:40→21:26)
[2020-06-08] MEDS: calcium carbonate 500 mg Chew Tablet PO (08:40)
[2020-06-08] MEDS: atenolol 50 mg Tablet 100 MG PO (08:40)
[2020-06-08] MEDS: gabapentin 300 mg Capsule PO ×3 (08:40→21:26)
[2020-06-08] MEDS: sertraline 50 mg Tablet PO (08:40)
[2020-06-08] MEDS: aztreonam 2,000 MG in sodium chloride 0.9% (plus) 100 ML 200 MG IV ×3 (08:45→23:29)
[2020-06-08] MEDS: nystatin powder 15 gm Btl 1 APPLIC TOPICAL ×2 (09:19→17:40)
--- NOTE | 2020-06-08 11:20 | PM.PN ---
Subjective Subjective: Interval history: Patient continues to remain on high flow. 75% fi02 at 40lpm. Patient remains to look comfortable. He has remained hemodynamically stable.His only complaiont right now is beingh unable to eat. 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 Urinary Catheter Management^: Wei: Cath Placed During This Visit: no Reason for Continuing Indwelling Catheter: Acute Urinary Retention or Obstruction Data : 06/08/20 03:26 06/08/20 03:26 Micro: Microbiology 06/05/20 14:30 Urine Culture - Preliminary Urine,Clean Catch Gram Negative Rods 06/05/20 14:30 Legionella Urinary Antigen - Final Urine Catheterized A&P Assessment and plan (1) ARDS (adult respiratory distress syndrome): Status: Acute (2) Sepsis: Status: Acute (3) Acute and chronic respiratory failure with hypoxia: Status: Acute (4) Multiple sclerosis: Status: Acute (5) Aspiration pneumonia: Status: Acute (6) S/P percutaneous endoscopic gastrostomy (PEG) tube placement: Status: Acute (7) Hypertension: Status: Acute (8) DNR (do not resuscitate): Status: Acute (9) Depression: Status: Acute (10) [facility] resident: Status: Acute Additional A&P Information ARDS: Secondary to chronic aspiration with multiple sclerosis. Sepsis along with acute on chronic hypoxic respiratory failure due to aspiration pneumonia in setting of multiple sclerosis.: Sepsis criteria met with tachycardia, fever, leukocytosis. Continue on HFNC Medications through PEG tube. For now continue with vancomycin and aztreonam. As patient has a history of possible allergy to penicillin. Add flagyl. For now patient states he is only wants to be able to eat, even though it needs a high risk of aspiration, possible respiratory arrest. He is not interested in discussing further options such as bronchoscopy at this present time to establish diagnosis. Given that he is on teriflunomide as an outpatient, may need to consider alternate differential such as interstitial pneumonitis, CMV if fails to improve or has clinical worsening, though his CT chest findings do not appear to be characteristic of the latter and no other evidence of hepatitis or altered BM. Given ARDS we will try to get him negative. Goal 1 to 2 L negative in next 24 hours. DuoNeb's as needed, DuoNebs every 4 hours, budesonide twice daily. Chest PT with chest vest and saline nebulization. Most likely will require frequent suctioning as patient has poor cough because of underlying multiple sclerosis. Patient is DNR/DNI C/w solumedrol 40 mg IV QD for now. COVID negative by PCR NIF study done yesterday showed -[address] Rowan. Keep mean arterial pressure over 65 mmHg. Hypertension: For now blood pressure is normal. Continue with home dose of amlodipine and atenolol. Heparin for DVT prophylaxis. Protonix for PUD prophylaxis. Continue chronic medication like gabapentin, sertraline, calcium carbonate. We will change medication as per the clinical picture and results of the blood work. Patient insists on eatng today in spite of understading risks of respiratory arrest. He is DNI and states he is willing to take the risk. Given his goals patient would be most appropriate for hospice care with pleasure feeds, however he states he'd like some ice cream and see what happens before discussing further GOC. Attestations Medical Necessity Statement*: high oxygen requirements, needs close monitoring, high risk of deterioration Coding Level of Care Code Acute Water Purifier for [facility] Fwd Diagnoses ARDS (adult respiratory distress syndrome) J80 Sepsis A41.9 Acute and chronic respiratory failure with hypoxia J96.21 Multiple sclerosis G35 Aspiration pneumonia J69.0 S/P percutaneous endoscopic gastrostomy (PEG) tube placement Z93.1 Hypertension I10 DNR (do not resuscitate) Z66 Depression F32.9 [facility] resident Z59.3
[2020-06-08 11:27] LABS: Glucose Point of Care 301 mg/dL (70-110)
[2020-06-08] MEDS: metroNIDAZOLE IV 500 MG/100 ML PREMIX 100 MG IV (12:59)
[2020-06-08] MEDS: enoxaparin 40 mg/0.4 mL Syringe SUBCUT (13:20)
--- NOTE | 2020-06-08 15:14 | PC.SOCIAL ---
*IMM* Important message from MCR was gave to the patient. The patient has MS and unable to sign. I gave the verbal. Copy in patients room and the original is in the chart.
--- NOTE | 2020-06-08 16:29 | PC.NURSE ---
PASSOCDE ESTABLISHED WITH MOM OF [id number]
[2020-06-08] MEDS: morphine 4 mg/mL SDV 1 mL 2 MG IVP ×2 (17:51→23:51)
--- NOTE | 2020-06-08 21:55 | PC.NURSE ---
Received report from FELICIA Buchanan. Patient is resting comfortably. Vital signs are stable. Bed in lowest position. NO concerns at this time.
[2020-06-09] VITALS (36 sets, daily range): BP systolic 111–156; BP diastolic 72–98; PULSE 78–102; RESP 17–25; TEMP 36.6; O2SAT 84–96
[2020-06-09] MEDS: metroNIDAZOLE IV 500 MG/100 ML PREMIX 100 MG IV ×2 (00:37→13:36)
[2020-06-09] MEDS: lanolin oint 7 gm 1 APPLIC TOPICAL (01:32)
[2020-06-09] MEDS: ipratropium-albuterol 3 mL Neb INHALATION ×4 (03:32→20:33)
[2020-06-09 03:54] LABS: Basophils % 0.1 %; Hematocrit 42.2 % (42.0-52.0); Hemoglobin 13.8 g/dL (11.7-16.6); Lymphocytes # 0.8 10^3/uL (0.8-4.8); Lymphocytes % 4.3 %; Mean Corpuscular HGB Conc 32.7 g/dL (30.0-36.0); Mean Corpuscular Hemoglobin 28.3 pg (28.0-34.0); Mean Corpuscular Volume 86.7 fL (80-94); Mean Platelet Volume 10.7 fL (7.4-10.4); Monocytes # 1.2 10^3/uL (0.2-0.9); Monocytes % 6.3 %; Neutrophils # 16.42 10^3/uL (1.8-7.7); Neutrophils % 88.4 %; Nucleated Red Blood Cells % 0 %; Platelet Count 186 10^3/cmm (130-400); Red Blood Count 4.87 10^6/uL (4.1-5.3); Red Cell Distribution Width 14.8 % (12.1-15.1); White Blood Count 18.6 10^3/uL (4.0-10.0)
[2020-06-09] MEDS: aztreonam 2,000 MG in sodium chloride 0.9% (plus) 100 ML 200 MG IV ×2 (07:38→15:31)
[2020-06-09] MEDS: budesonide 0.5 mg/2 mL Neb INHALATION ×2 (08:17→20:33)
[2020-06-09] MEDS: calcium carbonate 500 mg Chew Tablet PO (08:51)
[2020-06-09] MEDS: sertraline 50 mg Tablet PO (08:51)
[2020-06-09] MEDS: amlodipine 10 mg Tablet PO (08:51)
[2020-06-09] MEDS: gabapentin 300 mg Capsule PO ×3 (08:51→20:49)
[2020-06-09] MEDS: baclofen 10 mg Tablet PO ×4 (08:51→20:49)
[2020-06-09] MEDS: atenolol 50 mg Tablet 100 MG PO (08:51)
[2020-06-09] MEDS: nystatin powder 15 gm Btl 1 APPLIC TOPICAL ×2 (08:52→17:45)
--- NOTE | 2020-06-09 09:12 | PC.NURSE ---
repositioned requesting for po water at this time explained npo status
--- NOTE | 2020-06-09 11:50 | PM.PN ---
Subjective Subjective: Interval history: continues on high flow at 60% fi02 with 40lpm. Saturating 85-89% at the time. WBC tredning up Medications: Reviewed: Yes Vitals/I&O/Wt Last Vital Signs Temp 98.3 F 06/08/20 16:00 Pulse 100 06/09/20 08:23 Resp 23 H 06/09/20 08:23 BP 133/90 06/09/20 08:00 Pulse Ox 88 L 06/09/20 08:23 06/08/20 06/09/20 06/09/20 22:59 06:59 14:59 Intake Total 350 / 800 200 / 1000 Output Total 850 / 850 950 / 1800 Balance -500 / -50 -750 / -800 Physical Exam Narrative: EXAM NARRATIVE: GEN: Awake, alert and oriented, no acute distress HEENT: HFNC CVS: S1S2 N RS: CTA B/L Abd: Soft, nt/nd , bs+ ASL INTERPRETER: no focal neuro deficits Urinary Catheter Management^: Wei: Cath Placed During This Visit: no Reason for Continuing Indwelling Catheter: Acute Urinary Retention or Obstruction Data : 06/09/20 03:09 06/08/20 03:26 Micro: Microbiology 06/05/20 14:30 Legionella Urinary Antigen - Final Urine Catheterized 06/05/20 14:30 Urine Culture - Final Urine,Clean Catch Escherichia coli esbl Proteus mirabilis Enterobacter cloacae A&P Assessment and plan (1) ARDS (adult respiratory distress syndrome): Status: Acute (2) Sepsis: Status: Acute (3) Acute and chronic respiratory failure with hypoxia: Status: Acute (4) Multiple sclerosis: Status: Acute (5) Aspiration pneumonia: Status: Acute (6) S/P percutaneous endoscopic gastrostomy (PEG) tube placement: Status: Acute (7) Hypertension: Status: Acute (8) DNR (do not resuscitate): Status: Acute (9) Depression: Status: Acute (10) senior living resident: Status: Acute Additional A&P Information ARDS: Secondary to chronic aspiration with multiple sclerosis. Sepsis along with acute on chronic hypoxic respiratory failure due to aspiration pneumonia in setting of multiple sclerosis.: Sepsis criteria met with tachycardia, fever, leukocytosis. Continue on HFNC Medications through PEG tube.start tube feeding diet. Mother at bedside today, had extensive conversation with her at bedside, decision made to continue all care as we a doing now ans escalate as needed, however no intubation or CPR in keeping his wishes. Change abx to imipenem today. Clarified with mother that he does not have a personal h/o PCN allergy- his parents do and she assumes he is allergic too. If no allergy to imipenem, will remove PCN allergy from chart. Continue vancomycin or now, d/c aztreonam and flagyl per mother, screened for TB prior to starting teriflunomide. He is not interested in discussing further options such as bronchoscopy at this present time to establish diagnosis. Given ARDS we will try to get him negative. Goal 1 to 2 L negative in next 24 hours. DuoNeb's as needed, DuoNebs every 4 hours, budesonide twice daily. Chest PT with chest vest and saline nebulization. Most likely will require frequent suctioning as patient has poor cough because of underlying multiple sclerosis. He did aspirate his ice cream that he attempted yesetrday. Strictly NPO again given discussion with mother and him today, COVID negative by PCR Hypertension: For now blood pressure is normal. Continue with home dose of amlodipine and atenolol. Heparin for DVT prophylaxis. Protonix for PUD prophylaxis. Continue chronic medication like gabapentin, sertraline, calcium carbonate. We will change medication as per the clinical picture and results of the blood work. Declined hospice for now. Tube feeding started. Abx changed. Discussed option of LTAC- patient and mother agreeable. 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
[2020-06-09] MEDS: enoxaparin 40 mg/0.4 mL Syringe SUBCUT (13:37)
--- NOTE | 2020-06-09 15:39 | PC.NURSE ---
repositoned and linen change done bottom with some redness noted lotion applied and positioned off area
--- NOTE | 2020-06-09 16:12 | PC.NURSE ---
mother at bedside requesting that we bring food in so she can feed him explained npo and will call doctor for her
[2020-06-09] MEDS: sodium chloride 0.9% 1,000 ML 50 ML IV (17:45)
[2020-06-09] MEDS: acetaminophen 325 mg Tablet 650 MG PO (20:49)
--- NOTE | 2020-06-09 23:43 | PC.NURSE ---
Report received at bedside. Pt noted to be on highflow O2. Contractured hands, foot drop present. Face flushed but rest of body pale. Repositioned in bed to left side with max asssit. Medial buttocks/coccyx noted to have linear opening surrounded by bright redness (blanchable). Pt noted to be coughing. Requests water. Mouth swabbed. PEG tube in place to left upper abd with no complications. Call button in place under right hand per pt request. No further needs at this time.
[2020-06-10] VITALS (37 sets, daily range): BP systolic 95–155; BP diastolic 59–96; PULSE 80–126; RESP 11–28; TEMP 36.8–37.3; O2SAT 84–100
[2020-06-10] MEDS: ipratropium-albuterol 3 mL Neb INHALATION ×4 (03:09→20:04)
[2020-06-10 04:44] LABS: Basophils % 0.2 %; Hematocrit 44.1 % (42.0-52.0); Hemoglobin 14.7 g/dL (11.7-16.6); Lymphocytes # 0.6 10^3/uL (0.8-4.8); Lymphocytes % 3.1 %; Mean Corpuscular HGB Conc 33.3 g/dL (30.0-36.0); Mean Corpuscular Hemoglobin 28.3 pg (28.0-34.0); Mean Corpuscular Volume 84.8 fL (80-94); Mean Platelet Volume 10.7 fL (7.4-10.4); Monocytes # 1.1 10^3/uL (0.2-0.9); Monocytes % 5.4 %; Neutrophils # 18.38 10^3/uL (1.8-7.7); Neutrophils % 90.1 %; Nucleated Red Blood Cells % 0 %; Platelet Count 176 10^3/cmm (130-400); Red Cell Distribution Width 14.8 % (12.1-15.1); White Blood Count 20.4 10^3/uL (4.0-10.0)
--- NOTE | 2020-06-10 05:10 | PC.NURSE ---
Bed bath provided to patient. Pt tolerated well. Remains on high flow. Oral care given to patient multiple times throughout this shift. No complaints of pain once repositioned. IV atb infusing per orders, see MAR for further details. Kristin, mother, called and updated about night via telephone. No acute changes.
[2020-06-10 05:30] LABS: Alanine Aminotransferase 9 U/L (0-41); Albumin Level 3.3 g/dL (3.5-5.2); Alkaline Phosphatase 55 IU/L (40-130); Anion Gap 18.8 (5-19); Aspartate Amino Transferase 5 U/L (0-40); Blood Urea Nitrogen 14 mg/dL (6-20); Calcium 8.3 mg/dL (8.5-10.5); Carbon Dioxide 20 mmol/L (22-29); Chloride 107 mmol/L (98-107); Globulin 2.3 g/dL (1.3-4.6); Glucose 112 mg/dL (65-115); Osmolality Calculated 293 mOsm/kg (285-295); Sodium 143 mmol/L (136-145); Total Bilirubin 0.6 mg/dL (0.15-1.2); Total Protein 5.6 g/dL (6.6-8.7)
[2020-06-10 05:37] LABS: Lactate Dehydrogenase 227 U/L (135-225)
[2020-06-10 05:44] LABS: Potassium 2.8 mmol/L (3.5-5.1)
[2020-06-10] MEDS: potassium chloride oral liq 20 mEq/15 mL UDC 40 MEQ PO (07:34)
[2020-06-10] MEDS: potassium chloride premix 40 MEQ/100 ML PREMIX 25 MEQ IV (07:35)
[2020-06-10 07:41] LABS: Magnesium 2.1 mg/dL (1.7-2.3); Phosphorus 1.7 mg/dL (2.5-4.5)
[2020-06-10] MEDS: lidocaine 1% INJ 20 mL 5 ML IV (08:12)
[2020-06-10] MEDS: budesonide 0.5 mg/2 mL Neb INHALATION ×2 (08:13→20:03)
--- NOTE | 2020-06-10 08:28 | PC.NURSE ---
am care done teeth brushed and ensure feeding given and flushed with water positioned off bottom which remains red and discolored .. alevesta ointment applied ,, krider replacement
[2020-06-10] MEDS: calcium carbonate 500 mg Chew Tablet PO (09:35)
[2020-06-10] MEDS: baclofen 10 mg Tablet PO ×4 (09:35→21:48)
[2020-06-10] MEDS: sertraline 50 mg Tablet PO (09:36)
[2020-06-10] MEDS: atenolol 50 mg Tablet 100 MG PO (09:36)
[2020-06-10] MEDS: amlodipine 10 mg Tablet PO (09:36)
[2020-06-10] MEDS: gabapentin 300 mg Capsule PO ×3 (09:36→21:48)
[2020-06-10] MEDS: nystatin powder 15 gm Btl 1 APPLIC TOPICAL ×2 (09:45→17:07)
--- NOTE | 2020-06-10 11:11 | PC.NURSE ---
repositioned and bath done had large loose bm at this time repositioned off bottom pt wants to lay flat so can watch tv
--- NOTE | 2020-06-10 12:18 | PC.NURSE ---
another liquid stool noted cleaned and reposition cayetano care done
--- NOTE | 2020-06-10 13:50 | XRR_ITS ---
PROCEDURE INFORMATION: Exam: XR Chest, 1 View Exam date and time: 06/10/2020 3:00 PM Age: 55 years old Clinical indication: Shortness of breath; Patient HX: History of pneumonia; Additional info: Follow up pneumonia TECHNIQUE: Imaging protocol: XR of the chest Views: 1 view. COMPARISON: CR XR chest 1V portable [id number] 06/05/2020 8:30 PM FINDINGS: Lungs: Bibasilar and right mid/upper lateral lung zone opacities probably representing pneumonia without significant change. Pleural space: No pleural effusion. No pneumothorax. Heart/Mediastinum: Cardiomediastinal silhouette is stable. Bones/joints: No acute fracture. XR/XR chest 1V portable [id number] IMPRESSION: Stable appearance of the lungs.
[2020-06-10] MEDS: enoxaparin 40 mg/0.4 mL Syringe SUBCUT (14:16)
--- NOTE | 2020-06-10 16:59 | USR_ITS ---
PROCEDURE INFORMATION: Exam: US Retroperitoneal; Complete; Kidneys and Bladder Exam date and time: 06/10/2020 7:39 AM Age: 55 years old Clinical indication: Acute urinary retention or obstruction; Evalute for hydronephrosis TECHNIQUE: Imaging protocol: Real-time ultrasound of the retroperitoneum with image documentation. Complete exam focused on the kidneys and bladder. COMPARISON: CT abdomen pelvis w con* [id number] 03/15/2014 6:46 PM FINDINGS: Limitations: Decreased visualization due to intestinal gas. Right kidney: The right kidney measures 10.9 cm in length. No parenchymal echogenicity. No hydronephrosis. Left kidney: The left kidney measures 11.3 cm in length. No parenchymal echogenicity. No hydronephrosis. Aorta: The visualized portion of the abdominal aorta is within normal limits. Bladder: The bladder is decompressed with a Wei catheter. US/US renal BI* [id number] IMPRESSION: No hydronephrosis.
--- NOTE | 2020-06-10 17:28 | P.PN_ITS ---
Subjective Subjective: Interval history: Still requiring HFNC today, no acute evnts in the interim. 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: deficits at baseline Urinary Catheter Management^: Wei: Cath Placed During This Visit: no Reason for Continuing Indwelling Catheter: Acute Urinary Retention or Obstruction Data : 06/10/20 04:14 06/10/20 04:14 Micro: Microbiology 06/05/20 14:26 Blood Culture - Final Blood NO GROWTH AFTER 5 DAYS A&P Assessment and plan (1) ARDS (adult respiratory distress syndrome): Status: Acute (2) Sepsis: Status: Acute (3) Acute and chronic respiratory failure with hypoxia: Status: Acute (4) Multiple sclerosis: Status: Acute (5) Aspiration pneumonia: Status: Acute (6) S/P percutaneous endoscopic gastrostomy (PEG) tube placement: Status: Acute (7) Hypertension: Status: Acute (8) DNR (do not resuscitate): Status: Acute (9) Depression: Status: Acute (10) longterm resident: Status: Acute Additional A&P Information ARDS: Secondary to chronic aspiration with multiple sclerosis. Sepsis along with acute on chronic hypoxic respiratory failure due to aspiration pneumonia in setting of multiple sclerosis.: Sepsis criteria met with tachycardia, fever, leukocytosis. Continue on HFNC Medications through PEG tube.continue tube feeding diet. NPO via mouth Change abx to imipenem , however without significant change in clincial situtaion, pending sputum gram stain. per mother, screened for TB prior to starting teriflunomide. He is not interested in discussing further options such as bronchoscopy at this present time to establish diagnosis. Given ARDS we will try to get him negative. Goal 1 to 2 L negative in next 24 hours. DuoNeb's as needed, DuoNebs every 4 hours, budesonide twice daily. Chest PT with chest vest and saline nebulization. He requires frequent suctioning as patient has poor cough because of underlying multiple sclerosis. He did aspirate his ice cream that he attempted two days ago, and this is likely why WBC trended up. No gross change on CXR performed. COVID negative by PCR Hypertension: For now blood pressure is normal. Continue with home dose of amlodipine and atenolol. Heparin for DVT prophylaxis. Protonix for PUD prophylaxis. Continue chronic medication like gabapentin, sertraline, calcium carbonate. We will change medication as per the clinical picture and results of the blood work. Declined hospice for now. Tube feeding started. Abx changed. Discussed option of LTAC- patient and mother agreeable. Attestations Medical Necessity Statement*: high oxygen requirements, unable to be weaned down, awaiting placement at LTAC Coding Level of Care Code Acute Infrastructure Technician for [facility] Fwd Diagnoses ARDS (adult respiratory distress syndrome) J80 Sepsis A41.9 Acute and chronic respiratory failure with hypoxia J96.21 Multiple sclerosis G35 Aspiration pneumonia J69.0 S/P percutaneous endoscopic gastrostomy (PEG) tube placement Z93.1 Hypertension I10 DNR (do not resuscitate) Z66 Depression F32.9 longterm resident Z59.3
[2020-06-10] MEDS: acetaminophen 325 mg Tablet 650 MG PO (21:49)
[2020-06-11] VITALS (35 sets, daily range): BP systolic 99–124; BP diastolic 59–81; PULSE 71–102; RESP 16–23; TEMP 36.8–37.1; O2SAT 87–98
[2020-06-11] MEDS: sodium chloride 0.9% 1,000 ML 50 ML IV (00:09)
[2020-06-11] MEDS: ipratropium-albuterol 3 mL Neb INHALATION ×4 (03:03→20:03)
[2020-06-11] MEDS: budesonide 0.5 mg/2 mL Neb INHALATION ×2 (08:18→20:02)
[2020-06-11] MEDS: baclofen 10 mg Tablet PO ×4 (09:23→20:23)
[2020-06-11] MEDS: gabapentin 300 mg Capsule PO ×3 (09:23→20:23)
[2020-06-11] MEDS: sertraline 50 mg Tablet PO (09:23)
[2020-06-11] MEDS: atenolol 50 mg Tablet 100 MG PO (09:23)
[2020-06-11] MEDS: calcium carbonate 500 mg Chew Tablet PO (09:23)
[2020-06-11] MEDS: amlodipine 10 mg Tablet PO (09:23)
[2020-06-11] MEDS: nystatin powder 15 gm Btl 1 APPLIC TOPICAL ×2 (09:31→17:05)
[2020-06-11] MEDS: enoxaparin 40 mg/0.4 mL Syringe SUBCUT (12:25)
--- NOTE | 2020-06-11 14:21 | P.PN_ITS ---
Subjective Subjective: Interval history: Still requiring HFNC today. Currently at 60% fi02 at 40lpm. No acute events overnight. Medications: Reviewed: Yes Vitals/I&O/Wt Last Vital Signs Temp 98.7 F 06/11/20 05:00 Pulse 80 06/11/20 14:00 Resp 20 H 06/11/20 14:00 BP 106/81 06/11/20 14:00 Pulse Ox 95 06/11/20 14:00 06/10/20 06/11/20 06/11/20 22:59 06:59 14:59 Intake Total 740 / 2490 700 / 3190 640 / 640 Output Total 1000 / 1000 900 / 1900 900 / 900 Balance -260 / 1490 -200 / 1290 -260 / -260 Physical Exam Narrative: EXAM NARRATIVE: GEN: Awake, alert and oriented, no acute distress CVS: S1S2 N RS: CTA B/L Abd: Soft, nt/nd , bs+ FOOTWEAR STITCHER: deficits at baseline EXT: developed some dependent edema today Urinary Catheter Management^: Wei: Cath Placed During This Visit: no Reason for Continuing Indwelling Catheter: Accurate Measurement of Urinary Output in Critically Ill Patients Data : 06/10/20 04:14 06/10/20 04:14 Micro: Microbiology 06/05/20 14:26 Blood Culture - Final Blood NO GROWTH AFTER 5 DAYS A&P Assessment and plan (1) ARDS (adult respiratory distress syndrome): Status: Acute (2) Sepsis: Status: Acute (3) Acute and chronic respiratory failure with hypoxia: Status: Acute (4) Multiple sclerosis: Status: Acute (5) Aspiration pneumonia: Status: Acute (6) S/P percutaneous endoscopic gastrostomy (PEG) tube placement: Status: Acute (7) Hypertension: Status: Acute (8) DNR (do not resuscitate): Status: Acute (9) Depression: Status: Acute (10) senior living resident: Status: Acute Additional A&P Information ARDS: Secondary to chronic aspiration with multiple sclerosis. Sepsis along with acute on chronic hypoxic respiratory failure due to aspiration pneumonia in setting of multiple sclerosis.: Sepsis criteria met with tachycardia, fever, leukocytosis. Continue on HFNC, attempts to wean down lead to desaturation to 85-86%. Medications through PEG tube.continue tube feeding diet. NPO via mouth Change abx to imipenem , d/c vancomycin, MRSA PCR negative, has had appropriate empiric course, can resume if sputum cx shows otherwise. per mother, screened for TB prior to starting teriflunomide. Screening LDH for PJP not significantly elevated. PCR pending. He is not interested in discussing further options such as bronchoscopy at this present time to establish diagnosis. Given ARDS we will try to get him negative. Lasix 20mg IVP today as developing dependent edema. DuoNebs every 4 hours, budesonide twice daily. Chest PT with chest vest and saline nebulization. He requires frequent suctioning as patient has poor cough because of underlying multiple sclerosis. He did aspirate his ice cream that he attempted two days ago, and this is likely why WBC trended up. No gross change on CXR performed. COVID negative by PCR Hypertension: For now blood pressure is normal. Continue with home dose of amlodipine and atenolol. Heparin for DVT prophylaxis. Protonix for PUD prophylaxis. Continue chronic medication like gabapentin, sertraline, calcium carbonate. We will change medication as per the clinical picture and results of the blood work. Declined hospice for now. Tube feeding started. Abx changed. Discussed option of LTAC- patient and mother agreeable. Accepted at [facility] in [place], however they are unable to arrange for teriflunomide at this present time, and wish to discuss with his prescribing doctor. Attestations Medical Necessity Statement*: high oxygen requirements, unable to be replicated outside of acute care facility Coding Level of Care Code Acute Rn Access for [facility] Fwd Diagnoses ARDS (adult respiratory distress syndrome) J80 Sepsis A41.9 Acute and chronic respiratory failure with hypoxia J96.21 Multiple sclerosis G35 Aspiration pneumonia J69.0 S/P percutaneous endoscopic gastrostomy (PEG) tube placement Z93.1 Hypertension I10 DNR (do not resuscitate) Z66 Depression F32.9 senior living resident Z59.3
[2020-06-11] MEDS: FUROsemide 10 mg/mL SDV 2mL 20 MG IVP (14:47)
[2020-06-11] MEDS: potassium chloride oral liq 20 mEq/15 mL UDC 40 MEQ PO (14:49)
[2020-06-12] VITALS (30 sets, daily range): BP systolic 90–125; BP diastolic 68–86; PULSE 71–99; RESP 15–23; TEMP 36.6–37.1; O2SAT 88–98
[2020-06-12] MEDS: ipratropium-albuterol 3 mL Neb INHALATION ×4 (02:38→20:33)
[2020-06-12] MEDS: budesonide 0.5 mg/2 mL Neb INHALATION ×2 (08:13→20:33)
--- NOTE | 2020-06-12 09:25 | PC.SOCIAL ---
IMM Updated Updated pt on Pg 2 IMM. No questions voiced. Provided pt a copy & left on pt's bedside table. Signed, dated, & timed copy in chart.
[2020-06-12] MEDS: amlodipine 10 mg Tablet PO (09:46)
[2020-06-12] MEDS: calcium carbonate 500 mg Chew Tablet PO (09:46)
[2020-06-12] MEDS: sertraline 50 mg Tablet PO (09:46)
[2020-06-12] MEDS: baclofen 10 mg Tablet PO ×4 (09:46→20:04)
[2020-06-12] MEDS: atenolol 50 mg Tablet 100 MG PO (09:46)
[2020-06-12] MEDS: gabapentin 300 mg Capsule PO ×3 (09:46→20:04)
[2020-06-12] MEDS: enoxaparin 40 mg/0.4 mL Syringe SUBCUT (13:15)
[2020-06-12] MEDS: nystatin powder 15 gm Btl 1 APPLIC TOPICAL (13:15)
--- NOTE | 2020-06-12 18:38 | PM.PN ---
Subjective Subjective: Interval history: No acute events overnight. Patient continues to require high flow at 45 L, 55% FiO2 to maintain his saturations. Examination patient comfortable in bed asking for oral feeds as he states he is hungry. He denies of having any chest pain, shortness of breath. He states he is comfortable. Medications: Reviewed: Yes Vitals/I&O/Wt Last Vital Signs Temp 98.7 F 06/12/20 11:00 Pulse 86 06/12/20 18:00 Resp 22 H 06/12/20 18:00 BP 111/72 06/12/20 18:00 Pulse Ox 98 06/12/20 18:00 06/12/20 06/12/20 06/12/20 06:59 14:59 22:59 Intake Total 200 / 1390 240 / 240 Output Total 700 / 4500 625 / 625 450 / 1075 Balance -500 / -3110 -625 / -625 -210 / -835 Physical Exam Narrative: EXAM NARRATIVE: General: No acute distress, AO x3, quadriplegic, communicating through garbled words HEENT: PERRLA, pupils bilaterally equal and reactive Chest: Normal vesicular breath sounds, bilateral coarse crackles present right more than left anterior more than posterior, equal good air entry bilaterally CVS: S1-S2 regular, no murmurs, tachycardia, no gallops, no rubs Abdomen: Soft, nontender, no organomegaly, bowel sounds present Neuro: Quadriplegic, AO x3 Urinary Catheter Management^: Wei: Cath Placed During This Visit: no Reason for Continuing Indwelling Catheter: Chronic Indwelling Urinary Catheter on Admission Data : 06/10/20 04:14 06/10/20 04:14 A&P Assessment and plan (1) ARDS (adult respiratory distress syndrome): Status: Acute (2) Sepsis: Status: Acute (3) Acute and chronic respiratory failure with hypoxia: Status: Acute (4) Multiple sclerosis: Status: Acute (5) Aspiration pneumonia: Status: Acute (6) S/P percutaneous endoscopic gastrostomy (PEG) tube placement: Status: Acute (7) Hypertension: Status: Acute (8) DNR (do not resuscitate): Status: Acute (9) Depression: Status: Acute (10) detention resident: Status: Acute Additional A&P Information ARDS: Secondary to chronic aspiration with multiple sclerosis. Sepsis along with acute on chronic hypoxic respiratory failure due to aspiration pneumonia in setting of multiple sclerosis.: Sepsis criteria met with tachycardia, fever, leukocytosis. Continue oxygen supplementation keeping saturation over 90%. DuoNebs every 4 hours, budesonide twice daily. Chest PT saline nebulization. Have DC'd steroid. Continue with imipenem. Day 4 of treatment. Most likely requires treatment for overall 7 days. Overall patient has been antibiotics for 8 days now. Vancomycin was DC'd as PCR was negative. As per mother, screened for TB prior to starting teriflunomide. Screening LDH for PJP not significantly elevated. PCR pending. He is not interested in discussing further options such as bronchoscopy at this present time to establish diagnosis. Given ARDS we will try to get him negative. Lasix 20mg IVP today as developing dependent edema. Repeat chest x-ray tomorrow morning. COVID negative by PCR Leukocytosis: Most likely because of steroid use will get for yesterday. No left shift. Patient has remained hemodynamically stable and afebrile. Hypertension: For now blood pressure is normal. Continue with home dose of amlodipine and atenolol. Heparin for DVT prophylaxis. Protonix for PUD prophylaxis. DNR. Multiple sclerosis: NIF -60 on admission. Patient has been on steroids today before yesterday. Unfortunately cannot get his multiple sclerosis medication in hospital. We will try to arrange from retirement. Continue chronic medication like gabapentin, sertraline, calcium carbonate. Declined hospice for now. Tube feeding started. Abx changed. Discussed option of LTAC- patient and mother agreeable. Accepted at [facility] in [place], however they are unable to arrange for teriflunomide and his multiple sclerosis medications at this present time, and wish to discuss with his prescribing doctor. Attestations Medical Necessity Statement*: ARDS, multiple sclerosis, aspiration pneumonia Time Spent in Patient Care: Greater than 35 minutes (>than 50% of time spent in counselling and/or direct pt care on unit). Coding Level of Care Code Acute Director Of Medical Staff Services for [facility] Fw Diagnoses ARDS (adult respiratory distress syndrome) J80 Sepsis A41.9 Acute and chronic respiratory failure with hypoxia J96.21 Multiple sclerosis G35 Aspiration pneumonia J69.0 S/P percutaneous endoscopic gastrostomy (PEG) tube placement Z93.1 Hypertension I10 DNR (do not resuscitate) Z66 Depression F32.9 detention resident Z59.3
[2020-06-12] MEDS: potassium chloride oral liq 20 mEq/15 mL UDC 80 MEQ PO (18:55)
[2020-06-12] MEDS: acetaminophen 325 mg Tablet 650 MG PO (20:03)
[2020-06-13] VITALS (21 sets, daily range): BP systolic 97–117; BP diastolic 65–83; PULSE 75–98; RESP 15–19; TEMP 36.7; O2SAT 93–98
[2020-06-13] MEDS: ipratropium-albuterol 3 mL Neb INHALATION ×3 (04:17→16:34)
[2020-06-13 05:43] LABS: Alanine Aminotransferase 25 U/L (0-41); Albumin Level 3.1 g/dL (3.5-5.2); Alkaline Phosphatase 49 IU/L (40-130); Aspartate Amino Transferase 14 U/L (0-40); Blood Urea Nitrogen 12 mg/dL (6-20); Calcium 8.3 mg/dL (8.5-10.5); Carbon Dioxide 24 mmol/L (22-29); Chloride 102 mmol/L (98-107); Globulin 2.1 g/dL (1.3-4.6); Glucose 89 mg/dL (65-115); Osmolality Calculated 272 mOsm/kg (285-295); Sodium 133 mmol/L (136-145); Total Protein 5.2 g/dL (6.6-8.7)
[2020-06-13 05:54] LABS: Anion Gap 11.4 (5-19); Potassium 4.4 mmol/L (3.5-5.1)
--- NOTE | 2020-06-13 06:00 | XR_ITS ---
WS: [id number] CHEST XRAY TECHNIQUE: Portable chest. CLINICAL INFORMATION: sob COMPARISON: June 10, 2020 FINDINGS: Heart: Cardiomegaly. Lungs: Perihilar pulmonary vascular congestion with bibasilar interstitial infiltrates. Elevation lef t hemidiaphragm. Bones: Normal visualized bony structures. XR/XR chest 1V portable [id number] IMPRESSION: Improved bibasilar interstitial infiltrates. Elevation left hemidiaphragm. No f ocal pneumonia.
[2020-06-13 07:32] LABS: Basophils % 0.2 %; Eosinophils # 0.1 10^3/uL (0.0-0.8); Eosinophils % 1.1 %; Hemoglobin 14.8 g/dL (11.7-16.6); Lymphocytes # 0.9 10^3/uL (0.8-4.8); Lymphocytes % 9.5 %; Mean Corpuscular HGB Conc 33.6 g/dL (30.0-36.0); Mean Corpuscular Hemoglobin 29.3 pg (28.0-34.0); Mean Corpuscular Volume 87.1 fL (80-94); Mean Platelet Volume 11.5 fL (7.4-10.4); Monocytes # 0.4 10^3/uL (0.2-0.9); Monocytes % 3.8 %; Neutrophils # 7.87 10^3/uL (1.8-7.7); Neutrophils % 81.7 %; Nucleated Red Blood Cells % 0 %; Platelet Count 144 10^3/cmm (130-400); Red Blood Count 5.05 10^6/uL (4.1-5.3); Red Cell Distribution Width 15.1 % (12.1-15.1); White Blood Count 9.7 10^3/uL (4.0-10.0)
[2020-06-13] MEDS: budesonide 0.5 mg/2 mL Neb INHALATION (08:24)
[2020-06-13] MEDS: baclofen 10 mg Tablet PO ×3 (09:54→16:55)
[2020-06-13] MEDS: gabapentin 300 mg Capsule PO ×2 (09:54→13:36)
[2020-06-13] MEDS: atenolol 50 mg Tablet 100 MG PO (09:54)
[2020-06-13] MEDS: amlodipine 10 mg Tablet PO (09:54)
[2020-06-13] MEDS: calcium carbonate 500 mg Chew Tablet PO (09:54)
[2020-06-13] MEDS: nystatin powder 15 gm Btl 1 APPLIC TOPICAL (09:56)
[2020-06-13] MEDS: sertraline 50 mg Tablet PO (09:56)
[2020-06-13] MEDS: enoxaparin 40 mg/0.4 mL Syringe SUBCUT (13:36)
--- NOTE | 2020-06-13 15:40 | P.TS_ITS ---
Transfer Summary Providers Date of Admission: 06/05/20 10:10 Date of Discharge: 06/13/20 Attending Provider at Admission: Shimon Mccann MD Attending Provider at Transfer: Shimon Mccann MD Anticipated Date of Transfer: Anticipated date of transfer: 06/13/20 Receiving Facility & Provider: Receiving Provider: [] Receiving facility: [LTAC] Diagnoses at Discharge Discharge Diagnosis (1) ARDS (adult respiratory distress syndrome): Status: Acute (2) Sepsis: Status: Acute (3) Acute and chronic respiratory failure with hypoxia: Status: Acute (4) Multiple sclerosis: Status: Acute (5) Aspiration pneumonia: Status: Acute (6) S/P percutaneous endoscopic gastrostomy (PEG) tube placement: Status: Acute (7) Hypertension: Status: Acute (8) DNR (do not resuscitate): Status: Acute (9) Depression: Status: Acute (10) [facility] resident: Status: Acute Reason for Visit Reason for Visit: PNEUMONIA, INCREASED TEMP Hospital Course Discharge Summary: Jeancarlos Cota is a 55 year old male with past medical history of progressive multiple sclerosis with multiple neurological deficit on PEG tube feeds because of fear of aspiration, chronic aspiration as patient continues to eat, hypertension, PEG tube placement, history of bilateral lower lobe pneumonia who lives at [facility], DNR who was transferred from [facility] today. Most of the history given through the nurse at [place]. Patient has been at his baseline health till a week ago then then he started having difficulty in breathing and was requiring oxygen to keep her saturation over 92%. Chest x-ray done on June 01 was consistent with mild pneumonia at which he was started on doxycycline. He was also started on 3 days of IV steroids. After that patient had mild improvement in oxygen requirement. Today morning during evaluation he was saturating 86% which did not improve with 4 L of nasal cannula supplementation so he was brought in to the hospital. At [facility] asked for the report patient has not had any fever, nausea, diarrhea, vomiting. On my evaluation patient was saturating 92% on 5 L Venturi mask, blood pressure 135/80 mmHg, heart rate of 102 bpm, febrile up to 99.6 Fahrenheit. Patient was admitted to the ICU and started on broad-spectrum antibiotics and oxygen supplementation. Patient's goal of care were discussed with him and he stated that there is no way he would want to be intubated again and would like to remain DNR/DNI. CT chest was done which is consistent with bilateral pneumonia. Patient required more oxygen supplementation leading to ARDS. At present patient is on 35 L 55% high flow heated oxygen keeping saturation over 90%. NIF study was done and was found to be -60. Patient initially was on IV steroids with last dose on June 10, 2020. MRSA swab was negative so vancomycin was discontinued with last dose on June 09, 2020. Patient is currently on imipenem and today his is day 5. Patient most likely requires antibiotics for over a 7 days. Patient has remained hemodynamically stable and afebrile. Unfortunately given his advanced multiple sclerosis patient remains at a high risk of aspiration pneumonia. This was discussed with the patient as he continues to want to eat orally. Options discussed with the patient's over either being needed by mouth and having nutrition through the PEG tube feeds while his breathing status improves along with him being needed by mouth for long-term given his high risk of aspiration even when his breathing status is at his baseline versus possible hospice care while patient continues to have oral pleasure feeds. These options were discussed with patient and his mother. Patient stated for now he would be okay for not eating anything by mouth so nutrition supplementation through PEG tube feeds were started which he has tolerated well. As most likely patient requires slow weaning of from the high flow patient transferred to long-term acute care facility was sought and he has been approved today. Patient is being transferred in hemodynamically stable condition. Physical Exam Narrative: EXAM NARRATIVE: General: No acute distress, AO x3, quadriplegic, communicating through garbled words HEENT: PERRLA, pupils bilaterally equal and reactive Chest: Normal vesicular breath sounds, bilateral coarse crackles present right more than left anterior more than posterior, equal good air entry bilaterally CVS: S1-S2 regular, no murmurs, tachycardia, no gallops, no rubs Abdomen: Soft, nontender, no organomegaly, bowel sounds present Neuro: Quadriplegic, AO x3 Urinary Catheter Management^: Wei: Cath Placed During This Visit: no Reason for Continuing Indwelling Catheter: Accurate Measurement of Urinary Output in Critically Ill Patients TS Data Data Completed and Pending: Completed Studies During Hospitalization Category Date Time Status CT chest wo con 7 1250 Routine Cat Scan 06/06/20 10:32 Completed XR chest 1V candy ble [id number] QAM Exams 06/13/20 06:00 Completed XR chest 1V candy ble [id number] Routine Exams 06/05/20 17:03 Completed XR chest 1V candy ble [id number] Routine Exams 06/10/20 13:50 Completed US renal BI* [id number] Routine Ultrasound 06/10/20 16:59 Completed Pending at discharge Category Date Time Status Arterial Blood Ga s Full Stat Lab 06/07/20 10:31 Results Miscellaneous Day t Stat Lab 06/10/20 17:50 Received Sputum Culture an d Gram Stain Stat Lab 06/10/20 17:59 Ordered Labs from last 24 hours 06/13/20 06/13/20 06/13/20 07:07 05:00 05:00 WBC 9.7 Cancelled Corrected WBC Cancelled RBC 5.05 Cancelled Hgb 14.8 Cancelled Hct 44.0 Cancelled MCV 87.1 Cancelled MCH 29.3 Cancelled MCHC 33.6 Cancelled RDW 15.1 Cancelled Plt Count 144 Cancelled MPV 11.5 H Cancelled Gran % Cancelled Neut % (Auto) 81.7 Cancelled Lymph % (Auto) 9.5 Cancelled Montgomery % (Auto) 3.8 Cancelled Eos % (Auto) 1.1 Cancelled Baso % (Auto) 0.2 Cancelled Neut # (Auto) 7.87 H Cancelled Lymph # (Auto) 0.9 Cancelled Montgomery # (Auto) 0.4 Cancelled Eos # (Auto) 0.1 Cancelled Baso # (Auto) 0.0 Cancelled Absolute Gran (aut o) Cancelled Nucleated RBC % (a uto) 0 Cancelled Nucleated RBCs # 0.0 Cancelled Sodium 133 L Potassium 4.4 Chloride 102 Carbon Dioxide 24 Anion Gap 11.4 BUN 12 Creatinine 0.5 L GFR Calculation 172.0 H Glucose 89 Calculated Osmolal ity 272 L Calcium 8.3 L Total Bilirubin 1.0 AST 14 ALT 25 Alkaline Phosphata se 49 Total Protein 5.2 L Albumin 3.1 L Globulin 2.1 Vitals: Last Vital Signs Temp 98.0 F 06/13/20 09:00 Pulse 79 06/13/20 13:00 Resp 17 06/13/20 13:00 BP 101/72 06/13/20 14:00 Pulse Ox 96 06/13/20 14:00 TS Medications Medications Home Medications Lactobacillus acidophilus [Acidophilus] 1 tab PO DAILY 06/05/20 [History Confirmed 06/05/20] albuterol sulfate 2.5 mg INHALATION Q4H PRN 06/05/20 [History Confirmed 06/05/20] amlodipine 10 mg PO DAILY 06/05/20 [History Confirmed 06/05/20] atenolol 100 mg PO DAILY 06/05/20 [History Confirmed 06/05/20] baclofen 10 mg PO QID 06/05/20 [History Confirmed 06/05/20] calcium carbonate 500 mg PO DAILY 06/05/20 [History Confirmed 06/05/20] cetirizine 10 mg PO DAILY 06/05/20 [History Confirmed 06/05/20] dalfampridine [Ampyra] 10 mg PO Q12H 06/05/20 [History Confirmed 06/05/20] docusate sodium [Colace] 100 mg PO BID 06/05/20 [History Confirmed 06/05/20] doxycycline hyclate 100 mg PO BID 06/05/20 [History Confirmed 06/05/20] gabapentin 300 mg PO TID 06/05/20 [History Confirmed 06/05/20] hydrocodone-acetaminophen 1 tab PO Q6H PRN 06/05/20 [History Confirmed 06/05/20] levalbuterol HCl [Xopenex] 1.25 mg INHALATION Q6H PRN 06/05/20 [History Confirmed 06/05/20] multivitamin 1 tab PO DAILY 06/05/20 [History Confirmed 06/05/20] polyethylene glycol 3350 [Miralax] 17 g PO DAILY 06/05/20 [History Confirmed 06/05/20] potassium chloride 20 meq PO BID 06/05/20 [History Confirmed 06/05/20] sertraline 50 mg PO DAILY 06/05/20 [History Confirmed 06/05/20] teriflunomide [Aubagio] 14 mg PO DAILY 06/05/20 [History Confirmed 06/05/20] Active Medications Acetaminophen (Tylenol) 650 mg PO Q6H PRN PRN Reason: Mild/Mod Pain Or Temp >/= 101 Last Admin: 06/12/20 20:03 Dose: 650 mg Documented by: Albuterol Sulfate (Albuterol) 2.5 mg INHALATION Q4H.RESPIRATORY PRN PRN Reason: SHORTNESS OF BREATH Last Admin: 06/06/20 19:35 Dose: 2.5 mg Documented by: Albuterol/Ipratropium (Duoneb) 3 ml INHALATION Q6H.RESPIRATORY BENNIE Last Admin: 06/13/20 08:23 Dose: 3 ml Documented by: Amlodipine Besylate (Norvasc) 10 mg PO DAILY [facility] Last Admin: 06/13/20 09:54 Dose: 10 mg Documented by: Atenolol (Tenormin) 100 mg PO DAILY [facility] Last Admin: 06/13/20 09:54 Dose: 100 mg Documented by: Baclofen (Lioresal) 10 mg PO QID [facility] Last Admin: 06/13/20 13:36 Dose: 10 mg Documented by: Bisacodyl (Dulcolax) 10 mg PO DAILY PRN PRN Reason: CONSTIPATION Budesonide (Pulmicort) 0.5 mg INHALATION BID [facility] Last Admin: 06/13/20 08:24 Dose: 0.5 mg Documented by: Calcium Carbonate (Tums) 500 mg PO DAILY [facility] Last Admin: 06/13/20 09:54 Dose: 500 mg Documented by: Enoxaparin Sodium (Lovenox) 40 mg SUBCUT Q24H [facility] Last Admin: 06/13/20 13:36 Dose: 40 mg Documented by: Gabapentin (Neurontin) 300 mg PO TID [facility] Last Admin: 06/13/20 13:36 Dose: 300 mg Documented by: Imipenem/Cilastatin Sodium 500 (mg/ Sodium Chloride) 100 mls @ 200 mls/hr IV Q6H [facility]; Protocol Last Admin: 06/13/20 11:54 Dose: 200 mls/hr Documented by: Lactulose (Constulose) 10 gm PO DAILY PRN PRN Reason: CONSTIPA Lanolin (Lanolin Oint) 1 applic TOPICAL PRN PRN PRN Reason: DRYNESS Last Admin: 06/09/20 01:32 Dose: 1 applic Documented by: Non-Formulary Medication (Teriflunomide [Aubagio]) 14 mg PO DAILY [facility] Non-Formulary Medication (Dalfampridine [Ampyra]) 10 mg PO Q12H [facility] Non-Formulary Medication (Lactobacillus Acidophilus [Acidophilus]) 1 tab PO DAILY [facility] Nystatin (Nystatin Powder) 1 applic TOPICAL BID [facility] Last Admin: 06/13/20 09:56 Dose: 1 applic Documented by: Ondansetron HCl (Zofran) 4 mg IVP Q6H PRN PRN Reason: NAUSEA AND VOMITING Sertraline HCl (Zoloft) 50 mg PO DAILY [facility] Last Admin: 06/13/20 09:56 Dose: 50 mg Documented by: Discharge Plan Discharge Patient Disposition: Xfer [facility] Condition: Stable Prescriptions: Continued multivitamin Tablet 1 tab PO DAILY RF: 0 albuterol sulfate 2.5 mg /3 mL (0.083 %) Solution For Nebulization 2.5 mg INHALATION Q4H PRN (Reason: Shortness Of Breath) RF: 0 Miralax 17 gram Powder In Packet 17 g PO DAILY RF: 0 cetirizine 10 mg Tablet 10 mg PO DAILY RF: 0 atenolol 100 mg Tablet 100 mg PO DAILY RF: 0 hydrocodone-acetaminophen 10-325 mg Tablet 1 tab PO Q6H PRN (Reason: Pain) RF: 0 calcium carbonate 500 mg calcium (1,250 mg) Tablet 500 mg PO DAILY RF: 0 baclofen 10 mg Tablet 10 mg PO QID RF: 0 amlodipine 10 mg Tablet 10 mg PO DAILY RF: 0 Colace 100 mg Capsule 100 mg PO BID RF: 0 gabapentin 300 mg Capsule 300 mg PO TID RF: 0 Xopenex 1.25 mg/3 mL Solution For Nebulization 1.25 mg INHALATION Q6H PRN (Reason: Shortness Of Breath) RF: 0 sertraline 50 mg Tablet 50 mg PO DAILY RF: 0 Acidophilus Tablet,Chewable 1 tab PO DAILY RF: 0 potassium chloride 20 mEq Tablet Extended Release 20 meq PO BID RF: 0 Ampyra 10 mg Tablet Extended Release 12 Hr 10 mg PO Q12H Qty: 30 RF: 0 Aubagio 14 mg Tablet 14 mg PO DAILY Qty: 30 RF: 0 Discontinued doxycycline hyclate 100 mg Capsule 100 mg PO BID RF: 0 Discharge Orders: Discharge Order (Routine); Ordered 06/13/20 Ordered By: Shimon Mccann Transfer Out of Facility (Order); Ordered 06/13/20 Ordered By: Shimon Mccann Discharge Diet: Start new tube feeds as directed Discharge Activity: As per PT/OT instructions Activity Restrictions/Additional Instructions: Continue with Ensure 1 can 3 times a day. If patient does not have residual more than 50 cc can increase it to 1-1/2 can gradually. Transfer Attestations Time Spent in Transfer Care*: greater than 30 min Specific Discharge Activities: Specific discharge activities: educating patient, discussing with behavioral health case manager/social workers/dc planners, documenting/other paperwork and evaluating patient/reviewing data Status at Transfer: Cognitive status at transfer: cognitively intact , Behavioral status at transfer: cooperative , Functional status at transfer: bed bound Overall status at transfer: patient is progressing back to baseline Quality Metrics Clinical Quality Measures: During this hospital stay, did patient experience: None Coding Level of Care Code Acute Tractor Expert for [facility] Fwd Diagnoses ARDS (adult respiratory distress syndrome) J80 Sepsis A41.9 Acute and chronic respiratory failure with hypoxia J96.21 Multiple sclerosis G35 Aspiration pneumonia J69.0 S/P percutaneous endoscopic gastrostomy (PEG) tube placement Z93.1 Hypertension I10 DNR (do not resuscitate) Z66 Depression F32.9 [facility] resident Z59.3
[2020-06-13] MEDS: lanolin oint 7 gm 1 APPLIC TOPICAL (16:56)
[2020-06-13] MEDS: DALFAMPRIDINE 10 MG 10 EACH PO ×2 (16:56→17:21)
--- NOTE | 2020-06-13 17:55 | PC.NURSE ---
Report Report called to Mckenna Tong RN at [facility]. No further questions.
--- NOTE | 2020-06-13 18:57 | PC.NURSE ---
Mother, Kristin, called and notified of patient's transfer to [facility]. Gave mother number to nurses station.
--- NOTE | 2020-06-13 18:58 | PC.NURSE ---
Transfer [facility] here at 1845 for patient transfer via stretcher. Bedside report given to Basim Espana. Patient transferred to stretcher, placed on 10L venti mask per RT. Vitals WNL on stetcher, patient alert and oriented x4, happy about transfer. Belongings with PT. Paperwork with PT. Xavi from [facility] called and notified that patient is currently transferring now, per her verbal request earlier to be notified.
== END 2020-06-13 18:50 | DRG 871 ==
LOC: ER 10:16 → ICU 10:24
PROVIDERS: Family Medicine; Hospitalist; Student in an Organized Health Care Education/Training Program; Admitting Provider Student in an Organized Health Care Education/Training Program; Family Provider Family Medicine; Visit Provider Student in an Organized Health Care Education/Training Program
DX: A41.9 Sepsis, unspecified organism (principal); J69.0 Pneumonitis due to inhalation of food and vomit; J80 Acute respiratory distress syndrome; G35 Multiple sclerosis; Z66 Do not resuscitate; Z93.1 Gastrostomy status; I10 Essential (primary) hypertension; F32.9 Major depressive disorder, single episode, unspecified
CPT/HCPCS: 12345; 36415; 36416; 36600; 71045; 71250; 76770; 80051; 80053; 80202; 81001; 82565; 82810; 82962; 83540; 83550; 83605; 83615; 83735; 83880; 83986; 84100; 84145; 84443; 85007; 85025; 85027; 87040; 87077; 87086; 87186; 87281; 87449; 87635; 87641; 92610; 94640; 94669; 96372; 96375; 97161; 97530; 99282; J0743; J1650; J1940; J2270; J2920; J3370; J3480; J3490; J7030; J7050; J7611; J7626; S0030

== ENCOUNTER 2021-05-22 15:14 | Inpatient (IN) | payer MEDICARE, MEDICAID, SELFPAY ==
[2021-05-22] VITALS (13 sets, daily range): BP systolic 128–165; BP diastolic 78–95; PULSE 92–116; RESP 20–38; TEMP 36.2–38.3; O2SAT 85–98; BMI 22.4
--- NOTE | 2021-05-22 15:22 | XRR_ITS ---
PROCEDURE INFORMATION: Exam: XR Chest Exam date and time: 05/22/2021 3:22 PM Age: 56 years old Clinical indication: Dyspnea; Additional info: Dyspnea/cough TECHNIQUE: Imaging protocol: XR of the chest. Views: 1 view. Total images: 1 COMPARISON: 1. CTA Chest[place]ulmonary [place] [id number] 04/29/2021 7:53 PM 2. CR XR chest 1V portable [id number] 06/13/2020 5:48 AM 3. CR (CHEST, ) 06/10/2020 2:[address] chest wo con [id number] 06/06/2020 10:15 AM FINDINGS: Lungs: No visible active interstitial or alveolar airspace disease. Stable parenchymal scar right upper lobe. Suspected component of COPD/chronic bronchitis. Nipple shadow over right lung base. Pleural spaces: Unremarkable. No pleural effusion. No pneumothorax. Heart/Mediastinum: Cardiac structures and configuration with arteriosclerosis and coronary artery disease. Bones/joints: Unremarkable rage. XR/XR chest 1V portable [id number] IMPRESSION: Nonacute.
--- NOTE | 2021-05-22 15:37 | ECG_ITS ---
[facility] Test Date: 2021-05-22 Pat Name: Jeancarlos Cota Department: Room: Gender: Male Docket Clerk: : 1965 Requested By: Osiel Schaeffer Order Number: [id number] Reading MD: JOSELUIS HUDSON Measurements Intervals [place] Rate: 94 P: 67 WA: 187 QRS: -54 QRSD: 91 T: 63 QT: 331 QTc: 415 Interpretive Statements SINUS RHYTHM POSSIBLE LEFT ATRIAL ENLARGEMENT [-0.1mV P WAVE IN V1/V2] INCOMPLETE RIGHT BUNDLE BRANCH BLOCK [90+ ms QRS DURATION, TERMINAL R IN V1/V2, 40+ ms S IN I/aVL/V4/V5/V6] LEFT ANTERIOR FASCICULAR BLOCK [QRS AXIS <= -45, QR IN I, RS IN II] Compared to ECG 12/26/2015 19:53:57 Incomplete right bundle-branch block now present Left anterior fascicular block now present First degree AV block no longer present Left-axis deviation no longer present Electronically Signed On 05-22-2021 18:39:22 CDT by JOSELUIS HUDSON [id number]
[2021-05-22 15:52] LABS: ABG PH Result 7.38 (7.35-7.45); Arterial Blood Gas Hematocrit 47.5 % (42-52); Base Excess ABG -0.3 mmol/L (-2.0-2.0); Blood Gas Allen Test Pos; Blood Gas Sample Type Arterial; Carboxyhemoglobin 1.9 %THgb (0.4-20.1); HGB O2 Sat 79.6 % (95-100); Ionized Calcium Level - ABG 1.2 mmol/L (1.1-1.4); Methemoglobin 0.7 % (0.4-1.5); Oxygen Saturation ABG 81.7; PO2 ABG 43.3 mmHg (80.0-100.0); Potassium Level - ABG 3.7 mmol/L (3.5-5.0); Total Hemoglobin 15.5 g/dL (14-18)
[2021-05-22 15:53] LABS: Alveolar-Arterial Oxygen Gradi 80.4 mmHg (5-10); Blood Gas Operator Identificat MONRO; Blood Gas Sample Site Radial, left; Oxygen Device NRB
[2021-05-22 15:54] LABS: Basophils % 0.4 %; Eosinophils % 0.2 %; Lymphocytes # 0.4 10^3/uL (0.8-4.8); Lymphocytes % 5.1 %; Mean Corpuscular HGB Conc 31.3 g/dL (30.0-36.0); Mean Corpuscular Hemoglobin 28.5 pg (28.0-34.0); Mean Corpuscular Volume 91.1 fL (80-94); Mean Platelet Volume 11.6 fL (7.4-10.4); Monocytes # 0.7 10^3/uL (0.2-0.9); Monocytes % 8.9 %; Neutrophils # 6.87 10^3/uL (1.8-7.7); Nucleated Red Blood Cells % 0 %; Platelet Count 169 10^3/cmm (130-400); Red Blood Count 5.27 10^6/uL (4.1-5.3); Red Cell Distribution Width 15.9 % (12.1-15.1); White Blood Count 8.1 10^3/uL (4.0-10.0)
--- NOTE | 2021-05-22 15:55 | ED_ITS ---
HPI - SOB/Dyspnea General: Chief Complaint: Shortness of Breath/Dyspnea Stated Complaint: SOB Time Seen by Provider: 05/22/21 15:17 History of Present Illness: HPI Narrative: 56-year-old male with a history of MS presents to the emergency room in respiratory distress with O2 sats in the mid 80s on 6 L by nasal cannula. He also reportedly had a fever at the halfway of up to 102. He was seen earlier today at another ER had a chest x-ray and then was discharged home. He is nonverbal because of his MS and is unable to provide any history. He is a DNI according to his paperwork. He has a PEG tube in place and receives his medication and nutrition via the PEG tube. MD elicited complaint: cough Pertinent past history: COPD and other (Multiple sclerosis) Onset (ago): hour(s) Context: choking/aspiration Timing: constant Severity: severe Exacerbating factors: nothing Relieving factors: nothing Associated symptoms: Reports chest congestion, cough, diaphoresis and fever(s) Treatment prior to arrival: oxygen Review of Systems General: Reports: ROS unobtainable due to medical condition Const: Reports: fever(s) and diaphoresis Resp: Reports: chest congestion PFSH ED PFSH: Medical History Acute and chronic respiratory failure with hypoxia Aspiration pneumonia Depression DNR (do not resuscitate) Hypertension Multiple sclerosis [facility] resident Surgical History H/O right inguinal hernia repair H/O umbilical hernia repair S/P percutaneous endoscopic gastrostomy (PEG) tube placement S/P rotator cuff repair Family History Other Dementia Psychiatric illness Social History Smoking and tobacco status: never smoked Alcohol intake: never Adopted: No Caregiver/support person: Yes Lives independently: No Housing: Prison Marital status: Single service: No Current occupational status: disabled Pets and animals: Yes History of recent travel: No Current gender identity: Male Physical Exam HENMT: COMMON NORMALS: normocephalic, atraumatic, hearing grossly normal bilaterally and external ears normal HEAD & SCALP: normocephalic and atraumatic EXTERNAL EAR: Yes external ears normal Neck/C-Spine: COMMON NORMALS: full ROM, no lymphadenopathy, supple and no JVD Resp: COMMON NORMALS: normal respiratory effort, No retractions, No use of accessory muscles and clear to auscultation bilaterally AUSCULTATION: clear to auscultation bilaterally Cardio: COMMON NORMALS: no JVD, regular rate, regular rhythm and No murmurs present (Cardio) RATE: regular rate RHYTHM: regular rhythm GI: COMMON NORMALS: Soft to palpation and No hepatosplenomegaly present AUSCULTATION: Yes normoactive bowel sounds PALPATION: Yes Soft to palpation, No Tenderness to palpation present (GI), No Guarding due to palpation present (GI) and Yes No hepatosplenomegaly present Extremity: COMMON NORMALS: normal to inspection, capillary refill normal, no clubbing, cyanosis or edema, no calf tenderness and no pedal edema OTHER: Contractures of the upper and lower extremities Skin: COMMON NORMALS: no rashes or lesions noted GENERAL SKIN EXAM: no rashes or lesions noted Course Vital Signs: Vital signs: Vital Signs Temperature 99.5 F 05/23/21 04:00 Pulse Rate 98 05/23/21 04:45 Respiratory Rate 20 H 05/23/21 04:45 Blood Pressure 133/80 05/23/21 04:00 Pulse Oximetry 95 05/23/21 04:45 MDM - SOB/Dyspnea MDM Narrative: Medical decision making narrative: Patient is septic. Temp 102 he is requiring high flow oxygen and BiPAP to maintain his sats. He was initially on the BiPAP he was not actually getting his sats above 88. Suspect with rehydration he will have a more prominent pneumonia likely aspiration discussed with hospitalist orders started will admit Lab Data: Labs: Lab Results 05/22/21 05/22/21 05/22/21 Range/Units 15:40 15:43 15:43 WBC 8.1 (4.0-10.0) 10^3/ uL RBC 5.27 (4.1-5.3) 10^6/u L Hgb 15.0 (11.7-16.6) g/dL Hct 48.0 (42.0-52.0) % MCV 91.1 (80-94) fL MCH 28.5 (28.0-34.0) pg MCHC 31.3 (30.0-36.0) g/dL RDW 15.9 H (12.1-15.1) % Plt Count 169 (130-400) 10^3/c mm MPV 11.6 H (7.4-10.4) fL Neut % (Auto) 85.0 % Lymph % (Auto) 5.1 % Dickinson % (Auto) 8.9 % Eos % (Auto) 0.2 % Baso % (Auto) 0.4 % Neut # (Auto) 6.87 (1.8-7.7) 10^3/u L Lymph # (Auto) 0.4 L (0.8-4.8) 10^3/u L Dickinson # (Auto) 0.7 (0.2-0.9) 10^3/u L Eos # (Auto) 0.0 (0.0-0.8) 10^3/u L Baso # (Auto) 0.0 (0.0-0.1) 10^3/u L Nucleated RBC % (a uto) 0 % Nucleated RBCs # 0.0 /100WBC Specimen Type Arterial Sample Site Radial, left ABG pH 7.38 (7.35-7.45) ABG pCO2 42.0 (35-45) mmHg ABG pO2 43.3 L (80.0-100.0) mmH g ABG HCO3 25.0 (22-26) mmol/L ABG O2 Saturation 81.7 ABG Base Excess -0.3 (-2.0-2.0) mmol/ L Carl Test Pos A-a O2 Gradient 80.4 H (5-10) mmHg Hematocrit 47.5 (42-52) % Hgb O2 Saturation 79.6 L (95-100) % Carboxyhemoglobin 1.9 (0.4-20.1) %THgb Methemoglobin 0.7 (0.4-1.5) % Total Hemoglobin 15.5 (14-18) g/dL Sodium 138.0 Cancelled (131-143) mmol/L Potassium 3.7 Cancelled (3.5-5.0) mmol/L Glucose 165.0 H Cancelled (70-115) mg/dL Ionized Calcium 1.2 (1.1-1.4) mmol/L O2 Delivery Device Nrb O2 Liters/Min 15.0 % FiO2 100.0 % Financial Institution Branch Manager ID [place] Chloride Cancelled Carbon Dioxide Cancelled Anion Gap Cancelled BUN Cancelled Creatinine Cancelled GFR Calculation Cancelled Calculated Osmolal ity Cancelled Lactic Acid Calcium Cancelled Total Bilirubin Cancelled AST Cancelled ALT Cancelled Alkaline Phosphata se Cancelled Creatine Kinase Cancelled Troponin T Baselin e Total Protein Cancelled Albumin Cancelled Globulin Cancelled Urine Color (Yellow) Urine Appearance (CLEAR) Urine pH (5-7) Ur Specific Gravit y (1.005-1.030) Urine Protein (Negative) Urine Glucose (UA) (Normal) Urine Ketones (Negative) Urine Blood (Negative) Urine Nitrate (Negative) Urine Bilirubin (Negative) Urine Urobilinogen (Negative) mg/dL Ur Leukocyte Nancy ase (Negative) Urine RBC (0-2) /hpf Urine WBC (0-5) /hpf Ur Squamous Epith Cells (0-5) /hpf Amorphous Sediment Urine Bacteria (NONE) /hpf 05/22/21 05/22/21 05/22/21 Range/Units 15:43 15:43 16:15 WBC (4.0-10.0) 10^3/ uL RBC (4.1-5.3) 10^6/u L Hgb (11.7-16.6) g/dL Hct (42.0-52.0) % MCV (80-94) fL MCH (28.0-34.0) pg MCHC (30.0-36.0) g/dL RDW (12.1-15.1) % Plt Count (130-400) 10^3/c mm MPV (7.4-10.4) fL Neut % (Auto) % Lymph % (Auto) % Dickinson % (Auto) % Eos % (Auto) % Baso % (Auto) % Neut # (Auto) (1.8-7.7) 10^3/u L Lymph # (Auto) (0.8-4.8) 10^3/u L Dickinson # (Auto) (0.2-0.9) 10^3/u L Eos # (Auto) (0.0-0.8) 10^3/u L Baso # (Auto) (0.0-0.1) 10^3/u L Nucleated RBC % (a uto) % Nucleated RBCs # /100WBC Specimen Type Sample Site ABG pH (7.35-7.45) ABG pCO2 (35-45) mmHg ABG pO2 (80.0-100.0) mmH g ABG HCO3 (22-26) mmol/L ABG O2 Saturation ABG Base Excess (-2.0-2.0) mmol/ L Carl Test A-a O2 Gradient (5-10) mmHg Hematocrit (42-52) % Hgb O2 Saturation (95-100) % Carboxyhemoglobin (0.4-20.1) %THgb Methemoglobin (0.4-1.5) % Total Hemoglobin (14-18) g/dL Sodium (131-143) mmol/L Potassium (3.5-5.0) mmol/L Glucose (70-115) mg/dL Ionized Calcium (1.1-1.4) mmol/L O2 Delivery Device O2 Liters/Min % FiO2 % Financial Institution Branch Manager ID Chloride Carbon Dioxide Anion Gap BUN Creatinine GFR Calculation Calculated Osmolal ity Lactic Acid Cancelled Calcium Total Bilirubin AST ALT Alkaline Phosphata se Creatine Kinase Troponin T Baselin e Cancelled Total Protein Albumin Globulin Urine Color Yellow (Yellow) Urine Appearance Clear (CLEAR) Urine pH 7 (5-7) Ur Specific Gravit y 1.010 (1.005-1.030) Urine Protein 1+ H (Negative) Urine Glucose (UA) Norm (Normal) Urine Ketones 1+ H (Negative) Urine Blood 2+ H (Negative) Urine Nitrate Positive H (Negative) Urine Bilirubin Neg (Negative) Urine Urobilinogen Norm (Negative) mg/dL Ur Leukocyte Nancy ase Negative (Negative) Urine RBC 0-4 H (0-2) /hpf Urine WBC 10-15 H (0-5) /hpf Ur Squamous Epith Cells 0-4 H (0-5) /hpf Amorphous Sediment Not Reportable Urine Bacteria 3+ H (NONE) /hpf 05/22/21 05/22/21 05/22/21 Range/Units 16:17 16:17 16:17 WBC (4.0-10.0) 10^3/ uL RBC (4.1-5.3) 10^6/u L Hgb (11.7-16.6) g/dL Hct (42.0-52.0) % MCV (80-94) fL MCH (28.0-34.0) pg MCHC (30.0-36.0) g/dL RDW (12.1-15.1) % Plt Count (130-400) 10^3/c mm MPV (7.4-10.4) fL Neut % (Auto) % Lymph % (Auto) % Dickinson % (Auto) % Eos % (Auto) % Baso % (Auto) % Neut # (Auto) (1.8-7.7) 10^3/u L Lymph # (Auto) (0.8-4.8) 10^3/u L Dickinson # (Auto) (0.2-0.9) 10^3/u L Eos # (Auto) (0.0-0.8) 10^3/u L Baso # (Auto) (0.0-0.1) 10^3/u L Nucleated RBC % (a uto) % Nucleated RBCs # /100WBC Specimen Type Sample Site ABG pH (7.35-7.45) ABG pCO2 (35-45) mmHg ABG pO2 (80.0-100.0) mmH g ABG HCO3 (22-26) mmol/L ABG O2 Saturation ABG Base Excess (-2.0-2.0) mmol/ L Carl Test A-a O2 Gradient (5-10) mmHg Hematocrit (42-52) % Hgb O2 Saturation (95-100) % Carboxyhemoglobin (0.4-20.1) %THgb Methemoglobin (0.4-1.5) % Total Hemoglobin (14-18) g/dL Sodium 133 L (131-143) mmol/L Potassium 3.8 (3.5-5.0) mmol/L Glucose 151 H (70-115) mg/dL Ionized Calcium (1.1-1.4) mmol/L O2 Delivery Device O2 Liters/Min % FiO2 % Financial Institution Branch Manager ID Chloride 98 Carbon Dioxide 24 Anion Gap 14.8 BUN 18 Creatinine 0.2 L GFR Calculation 493.4 H Calculated Osmolal ity 281 L Lactic Acid 1.5 Calcium 8.8 Total Bilirubin 1.6 H AST 16 ALT 18 Alkaline Phosphata se 101 Creatine Kinase 8 L Troponin T Baselin e 12 Total Protein 6.4 L Albumin 4.2 Globulin 2.2 Urine Color (Yellow) Urine Appearance (CLEAR) Urine pH (5-7) Ur Specific Gravit y (1.005-1.030) Urine Protein (Negative) Urine Glucose (UA) (Normal) Urine Ketones (Negative) Urine Blood (Negative) Urine Nitrate (Negative) Urine Bilirubin (Negative) Urine Urobilinogen (Negative) mg/dL Ur Leukocyte Nancy ase (Negative) Urine RBC (0-2) /hpf Urine WBC (0-5) /hpf Ur Squamous Epith Cells (0-5) /hpf Amorphous Sediment Urine Bacteria (NONE) /hpf Discharge Plan Discharge Patient Disposition: Admitted As Inpatient Admit Provider: Jarrell Thomas Clinical Impression: ARDS (adult respiratory distress syndrome), Multiple sclerosis, Sepsis, Acute respiratory failure with hypoxemia, Aspiration pneumonia, Hypertension Condition: Stable Coding Level of Care Code ED Switchboard Clerk for Macie Klein
[2021-05-22 16:49] LABS: Lactic Sepsis W/Reflex 1.5 mmol/L (0.5-2.2)
[2021-05-22 16:51] LABS: Alanine Aminotransferase 18 U/L (0-41); Albumin Level 4.2 g/dL (3.5-5.2); Alkaline Phosphatase 101 IU/L (40-130); Anion Gap 14.8 (5-19); Aspartate Amino Transferase 16 U/L (0-40); Blood Urea Nitrogen 18 mg/dL (6-20); Calcium 8.8 mg/dL (8.5-10.5); Carbon Dioxide 24 mmol/L (22-29); Chloride 98 mmol/L (98-107); Creatine Phosphokinase 8 U/L (39-308); Globulin 2.2 g/dL (1.3-4.6); Glomerular Filtration Rate 493.4 mL/min (90-130); Glucose 151 mg/dL (65-115); Osmolality Calculated 281 mOsm/kg (285-295); Potassium 3.8 mmol/L (3.5-5.1); Sodium 133 mmol/L (136-145); Total Bilirubin 1.6 mg/dL (0.15-1.2); Total Protein 6.4 g/dL (6.6-8.7)
[2021-05-22 16:52] LABS: Troponin(5th) Baseline 12 ng/L (0-15)
[2021-05-22] MEDS: sodium chloride 0.9% 500 ML 999 ML IV (17:04)
[2021-05-22] MEDS: vancomycin 1,000 MG in sodium chloride 0.9% 250 ML 250 MG IV (17:07)
--- NOTE | 2021-05-22 17:37 | ECG_ITS ---
[facility] Test Date: 2021-05-22 Pat Name: Jeancarlos Cota Department: Room: Gender: Male Building Performance Specialist: : 1965 Requested By: Osiel Schaeffer Order Number: [id number] Reading MD: JOSELUIS HUDSON Measurements Intervals [place] Rate: 95 P: 77 MT: 201 QRS: -64 QRSD: 94 T: 79 QT: 340 QTc: 428 Interpretive Statements SINUS RHYTHM POSSIBLE LEFT ATRIAL ENLARGEMENT [-0.1mV P WAVE IN V1/V2] POSSIBLE RIGHT VENTRICULAR CONDUCTION DELAY [RSR (QR) IN V1/V2] LEFT ANTERIOR FASCICULAR BLOCK [QRS AXIS <= -45, QR IN I, RS IN II] Compared to ECG 05/22/2021 15:22:16 Incomplete right bundle-branch block no longer present Electronically Signed On 05-22-2021 18:40:37 CDT by JOSELUIS HUDSON [id number]
[2021-05-22 17:49] LABS: Blood Urine 2+ (Negative); Glucose Urine UA Norm (Normal); Ketones Urine 1+ (Negative); Nitrate Urine Positive (Negative); Protein Urine 1+ (Negative); Urine Appearance Clear (CLEAR); Urine Color Yellow (Yellow); pH Urine 7 (5-7)
[2021-05-22 17:50] LABS: Add Urine Microscopic? YES; Bilirubin Urine Neg (Negative); Leukocyte Esterase Urine Negative (Negative); Urobilinogen Urine Norm (Negative)
[2021-05-22 17:56] LABS: Add Urine Culture? Yes; Bacteria Urine 3+ /hpf; RBC Urine 0-4 /hpf (0-2); Squamous Epithelial Cell Urine 0-4 /hpf (0-5)
--- NOTE | 2021-05-22 18:02 | P.HP_ITS ---
Providers/Chief Complaint Admitting Physician: Jarrell Thomas Chief Complaint: SOB History of Present Illness 56-year-old male with a past medical history significant for hypertension, barretts esophagus, chronic constipation, advanced multiple sclerosis with significant debility, bed bound, chronic sacral decubitus ulcer, dysphagia stat us post g- tube, severe chronic bladder outlet obstruction with indwelling Carey, and recurrent hospitalizations for respiratory failure due to aspiration pneumonia was now presenting again to the hospital with respiratory distress. Patient was most recently discharged from [facility] on 04/13 after treatment for aspiration pneumonia. On 04/29 patient was again seen in ER during which time a CTA chest which showed persistent groundglass opacity with central cystic changes within the right upper lobe. Persistent perihilar mucous plugging, consolidation and bibasilar groundglass opacities. Patient was discharge back to SNF. Prior to arrival to ER today patient was seen at [facility] during which time it appear a chest xray was performed showed findings similar to prior study showing ground glass attenuation of the right lung with underlying chronic accentuated interstitial markings with left basilar atelectasis. Patient upon arrival to [place] ER today patient was on 15L via NRB. Initial laboratory workup showed a WBC of 8.1, hemoglobin of 15.0, hematocrit of 48.0 and a platelet count of 169. Sodium 133, potassium 3.8, chloride 98, bicarb 24, BUN 18 and creatinine is 0.2.Urinalysis showed positive nitrites.Chest x-ray repeated at our facility did not show any evidence of interstitial or alveolar airspace disease with stable parenchymal scarring noted in right upper lobe. ABG showed A pH of 7.38, pCO2 42, PO2 of 43.3 and a bicarb of 25.0 this was performed initially on 15 L via non-rebreather. Paitient. Was started on vancomycin, aztreonam and subsequently admitted. Review of Systems General: Reports: ROS unobtainable due to mental status Medications/Allergies Home Medications Medication Instructions Recorded Confirmed Last Taken Type albuterol sulfate 2.5 mg INHALATION Q4H PRN 06/05/20 05/22/21 06/05/20 History atenolol 100 mg FEEDING TUBE DAILY 06/05/20 05/22/21 06/05/20 History baclofen 15 mg FEEDING TUBE QID 06/05/20 05/22/21 05/22/21 08:00 History calcium carbonate 500 mg FEEDING TUBE DAILY PRN 06/05/20 05/22/21 06/05/20 History cetirizine 10 mg FEEDING TUBE DAILY@08 06/05/20 05/22/21 05/22/21 History dalfampridine [Ampyra] See Rx Instructions .ROUTE .COMPLEX 06/05/20 05/22/21 05/22/21 08:00 History gabapentin 300 mg FEEDING TUBE TID@08,,06/05/20 05/22/21 05/22/21 08:00 History hydrocodone-acetaminophen 1 tab FEEDING TUBE Q4H PRN 06/05/20 05/22/21 05/22/21 09:00 History multivitamin 1 tab FEEDING TUBE DAILY@08 06/05/20 05/22/21 05/22/21 History sertraline 50 mg FEEDING TUBE DAILY@08 06/05/20 05/22/21 05/22/21 History teriflunomide [Aubagio] 14 mg FEEDING TUBE DAILY@08 06/05/20 05/22/21 05/22/21 History Lactobacillus acidoph-pectin See Rx Instructions .ROUTE .COMPLEX 05/22/21 05/22/21 05/22/21 History [Acidophilus-Pectin] Prostat Liquid 30 ml FEEDING TUBE BID 05/22/21 05/22/21 Unknown History acetaminophen [Tylenol] 650 mg FEEDING TUBE Q6H PRN 05/22/21 05/22/21 Unknown History bisacodyl 10 mg NE DAILY PRN 05/22/21 05/22/21 Unknown History diphenhydramine HCl [Benadryl] 25 mg FEEDING TUBE Q6H PRN 05/22/21 05/22/21 Un known History honey [MediHoney (honey)] See Rx Instructions .ROUTE .COMPLEX 05/22/21 05/22/21 Unknown History loperamide 2 mg FEEDING TUBE Q4H PRN 05/22/21 05/22/21 Unknown History magnesium hydroxide [Milk of 30 ml FEEDING TUBE DAILY PRN 05/22/21 05/22/21 Unknown History Magnesia] ondansetron HCl 4 mg FEEDING TUBE Q8H PRN 05/22/21 05/22/21 Unknown History peg 400-propylene glycol 2 drp OPHTHALMIC (EYE) QID PRN 05/22/21 05/22/21 Unknown History [Lubricant Eye (PG-PEG 400)] potassium chloride 20 meq FEEDING TUBE BID@08,20 05/22/21 05/22/21 05/22/21 08:00 History sennosides-docusate sodium See Rx Instructions .ROUTE .COMPLEX 05/22/21 05/22/21 Unknown History [Senna-S] sodium phosphates [Enema 118 ml NE DAILY PRN 05/22/21 05/22/21 Unknown History Disposable] Allergies Allergy/AdvReac Type Severity Reaction Status Date / Time amoxicillin Allergy Unknown Unknown Verified 05/22/21 15:36 erythromycin base Allergy Unknown Unknown Verified 05/22/21 16:27 glatiramer (copolymer 1) Allergy Unknown Unknown Verified 05/22/21 16:27 [From Copaxone] guaifenesin [From Mucinex] Allergy Unknown Unknown Verified 05/22/21 16:27 interferon beta-1a Allergy Unknown Unknown Verified 05/22/21 16:27 [From Avonex] cefepime Allergy Unknown Verified 05/22/21 16:27 PFSH Acute PFSH: Medical History Acute and chronic respiratory failure with hypoxia Aspiration pneumonia Depression DNR (do not resuscitate) Hypertension Multiple sclerosis prison resident Surgical History H/O right inguinal hernia repair H/O umbilical hernia repair S/P percutaneous endoscopic gastrostomy (PEG) tube placement S/P rotator cuff repair Family History Other Dementia Psychiatric illness Social History Smoking and tobacco status: never smoked Alcohol intake: never Adopted: No Caregiver/support person: Yes Lives independently: No Housing: [facility] Marital status: Single service: No Current occupational status: disabled Pets and animals: Yes History of recent travel: No Current gender identity: Male Vitals/I&O/Wt Last Vital Signs Temp 98.4 F 05/22/21 19:22 Pulse 97 05/22/21 19:22 Resp 24 H 05/22/21 19:22 BP 144/83 05/22/21 19:22 Pulse Ox 90 05/22/21 19:22 05/22/21 05/22/21 05/22/21 06:59 14:59 22:59 Intake Total 750 / 750 Balance 750 / 750 Weight last 48 hrs Weight 61.235 kg Physical Exam Narrative: EXAM NARRATIVE: General : Alert, Awake, chronically ill appearing HEENT : On Bipap CVS : RRR Chest : Course breath sounds bilaterally Abd; Soft, NT, ND - Gtube in place : Carey in place. Ext Distal contracture with 2+ edema Data : 05/22/21 15:43 05/22/21 16:17 Micro: Microbiology 05/22/21 15:54 Blood Culture - Preliminary Blood SPECIMEN COLLECTED 05/22/21 15:54 Blood Culture - Preliminary Blood SPECIMEN COLLECTED A&P Assessment and plan (1) Acute respiratory failure with hypoxemia: Status: Acute (2) SIRS (systemic inflammatory response syndrome): Status: Acute (3) Multiple sclerosis: Status: Acute (4) Gastrostomy tube dependent: Status: Acute (5) Chronic indwelling Carey catheter: Status: Acute Acute respiratory distress with hypoxemia Placed on Bipap in ER Continue to wean fio2 Currently 100% Chest x-ray - no acute findings Degree of hypoxia > expected - Will rule out PE CTA chest PE protocol ordered Repeat ABG in worsening May need pulmonary consult D/w Mom-dpoa- No invasive ventilation Duoneb q6hr scheduled SIRS r/o Sepsis due to HCAP / UTI due to ch.indwelling carey Hx of MRSA colonization Noted on chest-ray at [facility] Fever 102 Continue vancomycin pharmacy to dose Continue azthreonam 1g IV q12hr Add flagyl 500 mg IV q8hr for possible aspiration Procalcitonin in am Follow up on blood culture UA - + nitrates - f/u on culture Additional medical history Multiple sclerosis with severe debility Dysphagia s/p G-tube placement Hypertension Barrets, esophagus Chronic constipation Sacral decubitus ulcer POA DVT ppx - Heparin Code status - A.N.D Attestations Medical Necessity Statement*: Will require over 2 midnight staying hospital for eval and treatment of sirs, pneumonia , respiratory failure Time Spent in Patient Care: Greater than 35 minutes Coding Level of Care Code Acute [place] for Chg Fwd Diagnoses Acute respiratory failure with hypoxemia J96.01 SIRS (systemic inflammatory response syndrome) R65.10 Multiple sclerosis G35 Gastrostomy tube dependent Z93.1 Chronic indwelling Carey catheter Z97.8
[2021-05-22] MEDS: acetaminophen 325 mg Tablet 650 MG PO (18:24)
[2021-05-22] MEDS: aztreonam 2,000 MG in sodium chloride 0.9% (plus) 100 ML 200 MG IV (18:30)
--- NOTE | 2021-05-22 19:22 | PC.NURSE ---
Report to FELICIA Rodriguez
--- NOTE | 2021-05-22 19:24 | PC.NURSE ---
190 Report from FELICIA Juárez
[2021-05-22] MEDS: pantoprazole 40 mg SDV IVP (19:33)
[2021-05-22] MEDS: heparin 5,000 unit/mL INJ 1 mL 5000 UNIT SUBCUT (19:33)
[2021-05-22 20:49] LABS: Troponin 5 2HR 12.59 ng/L (0-15); Troponin 5 2HR Delta 0.59 ABS# (0-10)
[2021-05-22] MEDS: ipratropium-albuterol 3 mL Neb INHALATION (22:23)
[2021-05-22] MEDS: ondansetron 2 mg/ML SDV 2 mL 4 MG IVP (22:32)
[2021-05-22 22:42] LABS: Troponin 5 6HR 9.89 ng/L (0-15)
[2021-05-22 22:44] LABS: Troponin 5 6HR Delta -2.11 ng/L (0-12)
[2021-05-23] VITALS (14 sets, daily range): BP systolic 123–149; BP diastolic 68–80; PULSE 90–102; RESP 15–23; TEMP 36.8–37.5; O2SAT 95–100
[2021-05-23] MEDS: metroNIDAZOLE IV 500 MG/100 ML PREMIX 100 MG IV ×2 (00:29→04:29)
[2021-05-23] MEDS: vancomycin 1,000 MG in sodium chloride 0.9% 250 ML 250 MG IV ×2 (02:25→21:57)
[2021-05-23] MEDS: heparin 5,000 unit/mL INJ 1 mL 5000 UNIT SUBCUT ×2 (04:29→17:09)
[2021-05-23] MEDS: acetaminophen 325 mg Tablet 650 MG PO ×2 (04:30→11:25)
[2021-05-23 05:55] LABS: Hematocrit 43.3 % (42.0-52.0); Hemoglobin 13.8 g/dL (11.7-16.6); Mean Corpuscular HGB Conc 31.9 g/dL (30.0-36.0); Mean Corpuscular Hemoglobin 28.5 pg (28.0-34.0); Mean Corpuscular Volume 89.5 fL (80-94); Mean Platelet Volume 11.9 fL (7.4-10.4); Platelet Count 160 10^3/cmm (130-400); Red Blood Count 4.84 10^6/uL (4.1-5.3); Red Cell Distribution Width 15.5 % (12.1-15.1); White Blood Count 6.9 10^3/uL (4.0-10.0)
[2021-05-23 06:07] LABS: Alanine Aminotransferase 16 U/L (0-41); Albumin Level 3.6 g/dL (3.5-5.2); Alkaline Phosphatase 79 IU/L (40-130); Anion Gap 13.2 (5-19); Aspartate Amino Transferase 15 U/L (0-40); Blood Urea Nitrogen 14 mg/dL (6-20); Calcium 8.2 mg/dL (8.5-10.5); Carbon Dioxide 22 mmol/L (22-29); Chloride 104 mmol/L (98-107); Globulin 2.1 g/dL (1.3-4.6); Glomerular Filtration Rate 171.4 mL/min (90-130); Glucose 135 mg/dL (65-115); Osmolality Calculated 285 mOsm/kg (285-295); Potassium 3.2 mmol/L (3.5-5.1); Sodium 136 mmol/L (136-145); Total Bilirubin 1.5 mg/dL (0.15-1.2); Total Protein 5.7 g/dL (6.6-8.7)
[2021-05-23 06:13] LABS: Procalcitonin 1.42 ng/mL (0-0.5)
[2021-05-23 06:41] LABS: Slide Review Slide Review Perform
[2021-05-23 06:44] LABS: Absolute Segmented Neutrophil 3.5 10/cmm (1.6-7.1); Band Neutrophils Absolute 2.1 10^3/cmm (0.0-1.2); Lymphocytes 6 %; Monocytes Absolute 0.8 10^3/cmm (0.1-0.6); Segmented Neutrophils 51 %; Total Cells Counted 100 (0-100)
[2021-05-23 06:45] LABS: Absolute Neutrophil 5.7 10^3/cmm (1.4-6.5); Eosinophils 0 %; Lymphocytes Absolute 0.4 10^3/cmm (1.2-3.4); Platelet Estimate Normal (Normal)
[2021-05-23] MEDS: ipratropium-albuterol 3 mL Neb INHALATION ×2 (07:53→15:44)
--- NOTE | 2021-05-23 08:00 | CT_ITS ---
WS: [id number] CT CHEST ANGIOGRAPHY WITH REFORMATS HISTORY: Hypoxia requiring Bipap TECHNIQUE: Contiguous axial images are obtained through the chest during arterial injection of intrav enous contrast. Images are reconstructed to evaluate the pulmonary arteries. MIP imaging also reviewe d. All CT scans at [facility] use at least one of these dose optimization techniques: aut omated exposure control; mA and/or kV adjustment per patient size (includes targeted exams where dose is matched to clinical indication); or iterative reconstruction. CONTRAST: Omnipaque 350; 95 mL IV. DLP: 611.58 mGy.cm COMPARISON: 04/29/2021 Good opacification of the pulmonary arteries. Beyond the segmental branches the opacification becomes limited. No filling defects are noted centrally into the lobar branches. Normal size aorta with athe rosclerosis. Pulmonary artery size is normal. Mild enlargement of the LEFT heart chambers with no RIG HT heart strain. There is volume loss in the LEFT thorax with shift of the mediastinal structures to the LEFT. Complete atelectasis of the LEFT lower lobe. There is a large amount of debris beginning within the d istal LEFT main bronchus and extending into the LEFT lower lobe bronchial tree. As seen on the recent CT from 04/29/2021 there was also increased soft tissue in the proximal LEFT low er lobe bronchial tree. This may have been mucus or an obstructing mass. This has progressed since th e prior study. Possible obstructing mass centrally measuring 4.0 x 3.1 cm. Mild mediastinal and hilar adenopathy. Probably reactive adenopathy. Use hazy opacification is probably edema in the LEFT upper lobe. Areas of atelectasis in the RIGHT up per lobe along the fissure and at the RIGHT lung base. New area of increased density anteriorly in th e mid RIGHT thorax is probably atelectasis as it was not present on 04/29/2021. Again noted is a pleural-based cystic mass at the RIGHT lung base and posterior to the liver. Partial ly calcified. No adrenal mass. PEG tube is in good position. No change in the low-attenuation mass LE FT kidney. CT/CT angio chest PE protcl [id number] IMPRESSION: 1. No pulmonary embolism. 2. Complete atelectasis LEFT lower lobe. 3. Increased soft tissue in the distal LEFT main bronchus and extending into t he bronchial tree of the LEFT lower lobe. Underlying mass in the proximal LEFT lower lobe bronchus is not excluded. 4. Diffuse bilateral areas of opacification and pneumonitis. 5. Mild LEFT heart enlargement. Notified Jarrell Thomas MD at 05/23/2021 11:36 AM.
[2021-05-23] MEDS: DALFAMPRIDINE 10 MG 10 EACH PEG-TUBE ×2 (09:59→17:12)
[2021-05-23] MEDS: aztreonam 1,000 MG in sodium chloride 0.9% (plus) 50 ML 100 MG IV (10:00)
--- NOTE | 2021-05-23 10:17 | PC.CHAP ---
Pastoral Care Encounter/Spiritual Assessment Type of Contact [] Declined port steward visit [] Patient/Family/Request visit [] Outpatient visit [] Follow-up visit [] Physician referral [] Code/Alert [x] Routine visit [] Staff referral [] Actively dying [] Patient sleeping [] Family support [] [] Out of room [] Palliative care [] [] Receiving care in room [] Pre-surgical visit [] Trauma [] Long length of stay [] ICU visit [] Other: Relational/Emotional Strength [x] Patient feels connected with others/family/visitors/staff [] Distress [] Loneliness/isolation [] Abandonment Spirituality of Patient [x] Person of [place] [] Attends Mu-Ism of their [place] [] Believes in Prayer [] Reads Bible or Church materials [] There are Spiritual issues to be addressed Electromechanical Technologist Interventions x[] Prayer [] Active listening [] Non-anxious presence [] Spiritual/emotional support [] Crisis/trauma care [] Spiritual counseling [] Bereavement support [] Provided bereavement packet [] Provided Bible/devotional materials [] Provided toy/stuffed animal, coloring book to patient or family member [] Provided Communion [] Anointing/[place] [] Salvation [] Completed spiritual assessment [] Other: Impact on Illness or Injury [] Angry [] Fearful [] Anxious [] Often cries [] Exhaustion [] Unable to work [] Unable to attend uatsdin [] Unable to walk/stand [] Unable to read [] Unable to drive [] Unable to eat/drink [] Unable to sleep [] Unable to be with family [] Patient intubated [] Other: Summary Time spent with patient 5 min
[2021-05-23] MEDS: iohexol 350 mg/mL 100 mL Btl IV (11:19)
--- NOTE | 2021-05-23 12:21 | PC.NURSE ---
carey catheter removed previous carey catheter removed which was size 24 fr 8mls removed from bulb prior to removal patient tolerated well note new catheter insertion
[2021-05-23] MEDS: baclofen 10 mg Tablet 15 MG PEG-TUBE ×3 (12:24→21:55)
--- NOTE | 2021-05-23 12:51 | PC.PT ---
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 Will discuss with physician as well.
--- NOTE | 2021-05-23 12:51 | PC.NUTR ---
Addendum entered by David Mckinney 05/23/21 12:55: Also recommend to discontinue oral diet order, due to high risk of aspiration, per staff at [facility]. Original Note: Tube feeding recommendations: Recommend Pulmocare, 300 ml bolus 4x/day (q6 hrs), with 220 ml H2O flushes after each feeding (q 6 hrs) to provide 1800 kcal, 76 g protein, and 1822 mL H2O. Flushes to be adjusted per MD discretion given other fluid provision. Recommend to consider ordering Prostat or Juve (not available in facility at this time) if pt not discharged within 3 days, to better meet estimated protein needs for wound healing. See RD assessment for further details.
--- NOTE | 2021-05-23 14:10 | P.PN_ITS ---
Subjective Subjective: Interval history: 56-year-old male with a past medical history significant for hypertension, barretts esophagus, chronic constipation, advanced multiple sclerosis with significant debility, bed bound, chronic sacral decubitus ulcer, dysphagia status post g- tube, severe chronic bladder outlet obstruction with indwelling Carey, and recurrent hospitalizations for respirat ory failure due to aspiration pneumonia was now presenting again to the hospital with respiratory distress. Patient was most recently discharged from [facility] on 04/13 after treatment for aspiration pneumonia. On 04/29 patient was again seen in ER during which time a CTA chest which showed persistent groundglass opacity with central cystic changes within the right upper lobe. Persistent perihilar mucous plugging, consolidation and bibasilar groundglass opacities. Patient was discharge back to SNF. Prior to arrival to ER today patient was seen at [facility] during which time it appear a chest xray was performed showed findings similar to prior study showing ground glass attenuation of the right lung with underlying chronic accentuated interstitial markings with left basilar atelectasis. Patient upon arrival to [facility] today patient was on 15L via NRB. Initial laboratory workup showed a WBC of 8.1, hemoglobin of 15.0, hematocrit of 48.0 and a platelet count of 169. Sodium 133, potassium 3.8, chloride 98, bicarb 24, BUN 18 and creatinine is 0.2.Urinalysis showed positive nitrites.Chest x-ray repeated at our facility did not show any evidence of interstitial or alveolar a irspace disease with stable parenchymal scarring noted in right upper lobe. ABG showed A pH of 7.38, pCO2 42, PO2 of 43.3 and a bicarb of 25.0 this was performed initially on 15 L via non-rebreather. Paitient. Was started on vancomycin, aztreonam and subsequently admitted.After review records it was noted the patient had tolerated Augmentin. At this point antibiotics were changed to vancomycin and Zosyn. Patient was weaned off BiPAP to high-flow nasal cannula. CT angio chest was performed which showed complete atelectasis of left lower lobe with increased soft tissue in the distal left juan ramon n bronchus extending into the bronchial treeOf the left lower lobe. Diffuse bilateral areas of opacification and pneumonitis were also noted. Pulmonary medicine was consulted for bronchoscopy evaluation. Medications: Reviewed: Yes Vitals/I&O/Wt Last Vital Signs Temp 98.6 F 05/23/21 08:00 Pulse 102 H 05/23/21 08:17 Resp 18 05/23/21 08:15 BP 123/68 05/23/21 08:00 Pulse Ox 96 05/23/21 08:15 05/22/21 05/23/21 05/23/21 22:59 06:59 14:59 Intake Total 750 / 750 550 / 1300 50 / 50 Output Total 550 / 550 300 / 300 Balance 750 / 750 0 / 750 -250 / -250 Weight last 48 hrs Weight 61.235 kg Physical Exam Narrative: EXAM NARRATIVE: General : Alert, Awake, chronically ill appearing HEENT : On High-flow nasal cannula CVS : RRR Chest : Course breath sounds bilaterally Abd; Soft, NT, ND - Gtube in place : Carey in place. Ext Distal contracture with 2+ edema Urinary Catheter Management^: 16: Cath Placed During This Visit: yes Urinary Catheter Date of Insertion: 05/23/21 Urinary Catheter Time of Insertion: 11:50 Data : 05/23/21 04:55 05/23/21 04:55 Micro: Microbiology 05/22/21 15:54 Blood Culture - Preliminary Blood SPECIMEN COLLECTED 05/22/21 15:54 Blood Culture - Preliminary Blood SPECIMEN COLLECTED A&P Assessment and plan (1) Acute respiratory failure with hypoxemia: Status: Acute (2) SIRS (systemic inflammatory response syndrome): Status: Acute (3) Multiple sclerosis: Status: Acute (4) Gastrostomy tube dependent: Status: Acute (5) Chronic indwelling Carey catheter: Status: Acute Acute respiratory distress with hypoxemia due to below Placed on Bipap in ER - Currenlty on HFNC Chest x-ray - no acute findings PE ruled out CTA chest PE protocol showed LLL atelectasis Pulmonary consulted D/w Mom-dpoa- No invasive ventilation Duoneb q6hr scheduled NPO for bronchosocpy likely in am SIRS r/o Sepsis due to HCAP / UTI due to ch.indwelling carey Hx of MRSA colonization Noted on chest-ray at [facility] Fever 102 Continue vancomycin pharmacy to dose Diontinue azthreonam and flagyl Start zosyn 3.375g IV q8hr Follow up on blood culture UA - + nitrates - f/u on culture Sputum culture Additional medical history Multiple sclerosis with severe debility Dysphagia s/p G-tube placement Hypertension Barrets, esophagus Chronic constipation Sacral decubitus ulcer POA DVT ppx - Heparin Code status - A.N.D Attestations Medical Necessity Statement*: Patient require further hospitalization for ma nagement of respiratory failure due to healthcare associated pneumonia versus aspiration requiring IV antibiotics and bronchoscopy Time Spent in Patient Care: Greater than 35 minutes (>than 50% of time spent in counselling and/or direct pt care on unit) . 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
[2021-05-23] MEDS: piperacillin-tazobactam 3.375 GM in sodium chloride 0.9% (plus) 50 ML IV ×2 (14:42→23:13)
[2021-05-23] MEDS: pantoprazole 40 mg SDV IVP (17:09)
--- NOTE | 2021-05-23 18:57 | P.CONIM_ITS ---
Providers/Reason For Consult Consulting Physician/Specialty*: Rick Vicente MD/ Pulmonary Critical Care Reason for Consult*: Recurrent aspiration pneumonia Requesting Physician: Jarrell Thomas Attending Physician: Jarrell Thomas History of Present Illness History of Present Illness Jeancarlos Cota is a 56 year old male with past medical history of hypertension, barretts esophagus, chronic constipation, advanced multiple sclerosis with significant debility, bed bound, chronic sacral decubitus ulcer, dysphagia status post g- tube, severe chronic bladder outlet obstruction with indwelling Wei, and recurrent hospitalizations for respiratory failure due to aspiration pneumonia now presented again to the hospital with respiratory distress. Patient was most recently discharged from [facility] on 04/13 after treatment for aspiration pneumonia. On 04/29 patient was again seen in ER during which time a CTA chest which showed persistent groundglass opacity with central cystic changes within the right upper lobe. Persistent perihilar mucous plugging, consolidation and bibasilar groundglass opacities. Patient was discharge back to SNF at [facility], DNR Before arrival to ED, Chest xray at [facility] showed findings similar to prior study showing ground glass attenuation of the right lung with underlying chronic accentuated interstitial markings with left basilar atelectasis. Patient upon arrival to [facility] ER on 05/22/21, he was on 15L via NRB. Initial laboratory workup showed a WBC of 8.1, hemoglobin of 15.0, hematocrit of 48.0 and a platelet count of 169. Sodium 133, potassium 3.8, chloride 98, bicarb 24, BUN 18 and creatinine is 0.2.Urinalysis showed positive nitrites.Chest x-ray repeated at our facility did not show any evidence of interstitial or alveolar airspace disease with stable parenchymal scarring noted in right upper lobe. ABG showed A pH of 7.38, pCO2 42, PO2 of 43.3 and a bicarb of 25.0 this was performed initially on 15 L via non-rebreather. Paitient was started on vancomycin, aztreonam and admitted for aspiration pneum onia.Antibiotics were changed to vancomycin and Zosyn. Patient was weaned off BiPAP to high-flow nasal cannula 40L and 80%. CT angio chest was performed which showed complete atelectasis of left lower lobe with increased soft tissue in the distal left main bronchus extending into the bronchial tree Of the left lower lobe. Diffuse bilateral areas of opacification and pneumonitis were also noted. Pulmonary consulted for bronchoscopic evaluation of LLL opacity Patient was supposed to see me through telehealth audiovisual visit on 05/02/21 but due to technical issues video did not work and could not see the patient. and pt does not talk so ended up speaking to RN taking care of patient at intermediate. As per the nurse patient is bedbound due to severe multiple sclerosis and has a PEG tube for feeding. Previously used to attempt eating despite having PEG tube and had recurrent episodes of aspiration pneumonia. He was admitted to [facility] in March 2021 for aspiration pneumonia and was treated with Levaquin and discharged to intermediate. Later again patient had a ER visit in March 2021, and aspiration pneumonia and this time treated with Augmentin which he recently finished antibiotic course. RN reported that patient was back to his baseline and saturating on room air. He is on albuterol nebulization every 4 hours and chest physiotherapy every 3 hours. RN reported that patient does not want to attempt any more oral feeling. Today at bedside was seen - opening eyes and communicates occasionally. His mother at bedside - who is also the rn long term care - reported that and patient and his sister stay in same NH for multiple sclerosis she reported his mentation has improved since admission Patient have been bedridden for last 8 years. he has recurrent aspiration events several times in the past. but this time he is requiring more oxygen labs and imaging reviewed and pertinent findings incorporated in the assessment and plan, Review of Systems General: Reports: ROS unobtainable due to medical condition and ROS unobtainable due to mental status Meds/Allergies Home Medications and Allergies Home Medications Medication Instructions Recorded Confirmed Last Taken Type albuterol sulfate 2.5 mg INHALATION Q4H PRN 06/05/20 05/22/21 06/05/20 History atenolol 100 mg FEEDING TUBE DAILY 06/05/20 05/22/21 06/05/20 History baclofen 15 mg FEEDING TUBE QID 06/05/20 05/22/21 05/22/21 08:00 History calcium carbonate 500 mg FEEDING TUBE DAILY PRN 06/05/20 05/22/21 06/05/20 History cetirizine 10 mg FEEDING TUBE DAILY@08 06/05/20 05/22/21 05/22/21 History dalfampridine [Ampyra] See Rx Instructions .ROUTE .COMPLEX 06/05/20 05/22/21 05/22/21 08:00 History gabapentin 300 mg FEEDING TUBE TID@08,12,06/05/20 05/22/21 05/22/21 08:00 History hydrocodone-acetaminophen 1 tab FEEDING TUBE Q4H PRN 06/05/20 05/22/21 05/22/21 09:00 History multivitamin 1 tab FEEDING TUBE DAILY@08 06/05/20 05/22/21 05/22/21 History sertraline 50 mg FEEDING TUBE DAILY@08 06/05/20 05/22/21 05/22/21 History teriflunomide [Aubagio] 14 mg FEEDING TUBE DAILY@08 06/05/20 05/22/21 05/22/21 History Lactobacillus acidoph-pectin See Rx Instructions .ROUTE .COMPLEX 05/22/2105/22/21 History [Acidophilus-Pectin] Prostat Liquid 30 ml FEEDING TUBE BID 05/22/21 05/22/21 Unknown History acetaminophen [Tylenol] 650 mg FEEDING TUBE Q6H PRN 05/22/21 05/22/21 Unknown History bisacodyl 10 mg ID DAILY PRN 05/22/21 05/22/21 Unknown History diphenhydramine HCl [Benadryl] 25 mg FEEDING TUBE Q6H PRN 05/22/21 05/22/21 Unknown History honey [MediHoney (honey)] See Rx Instructions .ROUTE .COMPLEX 05/22/21 05/22/21 Unknown History loperamide 2 mg FEEDING TUBE Q4H PRN 05/22/21 05/22/21 Unknown History magnesium hydroxide [Milk of 30 ml FEEDING TUBE DAILY PRN 05/22/21 05/22/21 Unknown History Magnesia] ondansetron HCl 4 mg FEEDING TUBE Q8H PRN 05/22/21 05/22/21 Unknown History peg 400-propylene glycol 2 drp OPHTHALMIC (EYE) QID PRN 05/22/21 05/22/21 Unknown History [Lubricant Eye (PG-PEG 400)] potassium chloride 20 meq FEEDING TUBE BID@08,20 05/22/21 05/22/21 05/22/21 08:00 History sennosides-docusate sodium See Rx Instructions .ROUTE .COMPLEX 05/22/21 05/22/21 Unknown History [Senna-S] sodium phosphates [Enema 118 ml ID DAILY PRN 05/22/21 05/22/21 Unknown History Disposable] Allergies Allergy/AdvReac Type Severity Reaction Status Date / Time amoxicillin Allergy Unknown Unknown Verified 05/22/21 15:36 erythromycin base Allergy Unknown Unknown Verified 05/22/21 16:27 glatiramer (copolymer 1) Allergy Unknown Unknown Verified 05/22/21 16:27 [From Copaxone] guaifenesin [From Mucinex] Allergy Unknown Unknown Verified 05/22/21 16:27 interferon beta-1a Allergy Unknown Unknown Verified 05/22/21 16:27 [From Avonex] cefepime Allergy Unknown Verified 05/22/21 16:27 Current Medications Current Medications Generic Name Dose Route Start Last Admin Trade Name Freq PRN Reason Stop Dose Admin Acetaminophen 650 mg 05/23/21 00:22 05/23/21 11:25 Acetaminophen 325 Mg Tablet PO 650 mg Q6H PRN Administration MILD PAIN Albuterol/Ipratropium 3 ml 05/22/21 19:57 05/23/21 15:44 Ipratropium-Albuterol 3 Ml Neb INHALATION 3 ml Q6H PRN Administration SHORTNESS OF BREATH Baclofen 15 mg 05/23/21 12:00 05/23/21 16:21 Baclofen 10 Mg Tablet PEG-TUBE 15 mg 0800,1200,1600,2000 BENNIE Administration Heparin Sodium (Beef Lung) 5,000 unit 05/22/21 17:45 05/23/21 17:09 Heparin 5,000 Unit/Ml Inj 1 Ml SUBCUT 5,000 unit Q12H BENNIE Administration Piperacillin Sod/Tazobactam 50 mls @ 12.5 mls/hr 05/23/21 14:00 05/23/21 18:52 Sod 3.375 gm/ Sodium Chloride IV Infused Q8H BENNIE Infusion Non-Formulary Medication 10 mg 05/23/21 09:00 05/23/21 17:12 Dalfampridine PEG-TUBE 10 mg BID BENNIE Administration Non-Formulary Medication 14 mg 05/23/21 09:00 05/23/21 10:03 Aubagio PEG-TUBE 14 mg DAILY BENNIE Administration Ondansetron HCl 4 mg 05/22/21 21:52 05/22/21 22:32 Ondansetron 2 Mg/Ml Sdv 2 Ml IVP 4 mg Q6H PRN Administration NAUSEA AND VOMITING Pantoprazole Sodium 40 mg 05/22/21 17:45 05/23/21 17:09 Pantoprazole 40 Mg Sdv IVP 40 mg Q24H BENNIE Administration PFSH Acute PFSH: Medical History Acute and chronic respiratory failure with hypoxia Aspiration pneumonia Depression DNR (do not resuscitate) Hypertension Multiple sclerosis assisted resident Surgical History H/O right inguinal hernia repair H/O umbilical hernia repair S/P percutaneous endoscopic gastrostomy (PEG) tube placement S/P rotator cuff repair Family History Other Dementia Psychiatric illness Social History Smoking and tobacco status: never smoked Alcohol intake: never Adopted: No Caregiver/support person: Yes Lives independently: No Housing: [facility] Marital status: Single service: No Current occupational status: disabled Pets and animals: Yes History of recent travel: No Current gender identity: Male Vitals/I&O/Wt Last Vital Signs Temp 98.4 F 05/23/21 16:00 Pulse 100 05/23/21 16:00 Resp 18 05/23/21 16:00 BP 127/77 05/23/21 16:00 Pulse Ox 100 05/23/21 16:00 05/23/21 05/23/21 05/23/21 06:59 14:59 22:59 Intake Total 550 / 1300 50 / 50 50 / 100 Output Total 550 / 550 300 / 300 Balance 0 / 750 -250 / -250 50 / -200 Weight last 48 hrs Weight 135 lb Physical Exam Narrative: EXAM NARRATIVE: General: alert, NAD, opens eyes and communicated occasioanlly HEENT: conj clear, EOMI, PERRL, mmm, Neck: supple, no meningismus Heme: no cervical LAP Pulmonary: reduced breath sounds on left lower lobe Abdomen: soft, nt, nd, no r/g, bs+ Extremities: pulses +, no edema, no c/c : no CVA tenderness Skin: intact, no rash MSK: no back or neck pain Neurologic: cannot move his limbs Urinary Catheter Management^: 16: Cath Placed During This Visit: yes Reason for Continuing Indwelling Catheter: Assist healing open wound Urinary Catheter Date of Insertion: 05/23/21 Urinary Catheter Time of Insertion: 11:50 Data Labs: Other Labs: Laboratory Results WBC 6.9 10^3/uL (4.0- 10.0) 05/23/21 04:55 RBC 4.84 10^6/uL (4.1 -5.3) 05/23/21 04:55 Hgb 13.8 g/dL (11.7-1 6.6) 05/23/21 04:55 Hct 43.3 % (42.0-52.0 ) 05/23/21 04:55 MCV 89.5 fL (80-94) 05/23/21 04:55 MCH 28.5 pg (28.0-34. 0) 05/23/21 04:55 MCHC 31.9 g/dL (30.0-3 6.0) 05/23/21 04:55 RDW 15.5 % (12.1-15.1 ) H 05/23/21 04:55 Plt Count 160 10^3/cmm (130 -400) 05/23/21 04:55 MPV 11.9 fL (7.4-10.4 ) H 05/23/21 04:55 Neut % (Auto) 85.0 % 05/22/21 15:43 Lymph % (Auto) Not Reportable 05/23/21 04:55 Charles % (Auto) Not Reportable 05/23/21 04:55 Eos % (Auto) 0.2 % 05/22/21 15:43 Baso % (Auto) 0.4 % 05/22/21 15:43 Neut # (Auto) 6.87 10^3/uL (1.8 -7.7) 05/22/21 15:43 Lymph # (Auto) Not Reportable 05/23/21 04:55 Charles # (Auto) Not Reportable 05/23/21 04:55 Eos # (Auto) 0.0 10^3/uL (0.0- 0.8) 05/22/21 15:43 Baso # (Auto) 0.0 10^3/uL (0.0- 0.1) 05/22/21 15:43 Nucleated RBC % (a uto) 0 % 05/22/21 15:43 Total Counted 100 (0-100) 05/23/21 04:55 Atypical Lymphs % 0.0 % (0-5) 05/23/21 04:55 Absolute Neutrophi ls 5.7 10^3/cmm (1.4 -6.5) 05/23/21 04:55 Segmented Neutroph ils 51 % 05/23/21 04:55 Abs Segm Neuts (Ma n) 3.5 10/cmm (1.6-7 .1) 05/23/21 04:55 Band Neutrophils 31.0 % 05/23/21 04:55 Abs Band Neuts (Ma n) 2.1 10^3/cmm (0.0 -1.2) H 05/23/21 04:55 Absolute Lymphocyt es 0.4 10^3/cmm (1.2 -3.4) L 05/23/21 04:55 Lymphocytes (Manua l) 6 % 05/23/21 04:55 Monocytes (Manual) 12.0 % 05/23/21 04:55 Absolute Monocytes 0.8 10^3/cmm (0.1 -0.6) H 05/23/21 04:55 Eosinophils (Manua l) 0 % 05/23/21 04:55 Absolute Eosinophi ls 0.0 10^3/cmm (0.0 -0.7) 05/23/21 04:55 Basophils (Manual) 0.0 % 05/23/21 04:55 Absolute Basophils 0.0 10^3/cmm (0.0 -0.2) 05/23/21 04:55 Nucleated RBCs # 0.0 /100WBC 05/22/21 15:43 Platelet Estimate Normal (Normal) 05/23/21 04:55 Specimen Type Arterial 05/22/21 15:40 Sample Site Radial, left 05/22/21 15:40 ABG pH 7.38 (7.35-7.45) 05/22/21 15:40 ABG pCO2 42.0 mmHg (35-45) 05/22/21 15:40 ABG pO2 43.3 mmHg (80.0-1 00.0) L 05/22/21 15:40 ABG HCO3 25.0 mmol/L (22-2 6) 05/22/21 15:40 ABG O2 Saturation 81.7 05/22/21 15:40 ABG Base Excess -0.3 mmol/L (-2.0 -2.0) 05/22/21 15:40 Carl Test Pos 05/22/21 15:40 A-a O2 Gradient 80.4 mmHg (5-10) H 05/22/21 15:40 Hematocrit 47.5 % (42-52) 05/22/21 15:40 Hgb O2 Saturation 79.6 % (95-100) L 05/22/21 15:40 Carboxyhemoglobin 1.9 %THgb (0.4-20 .1) 05/22/21 15:40 Methemoglobin 0.7 % (0.4-1.5) 05/22/21 15:40 Total Hemoglobin 15.5 g/dL (14-18) 05/22/21 15:40 Sodium 138.0 mmol/L (131 -143) 05/22/21 15:40 Potassium 3.7 mmol/L (3.5-5 .0) 05/22/21 15:40 Glucose 165.0 mg/dL (70-1 15) H 05/22/21 15:40 Ionized Calcium 1.2 mmol/L (1.1-1 .4) 05/22/21 15:40 O2 Delivery Device Nrb 05/22/21 15:40 O2 Liters/Min 15.0 % 05/22/21 15:40 FiO2 100.0 % 05/22/21 15:40 Child Support Investigator ID Monro 05/22/21 15:40 Sodium 136 mmol/L (136-1 45) 05/23/21 04:55 Potassium 3.2 mmol/L (3.5-5 .1) L 05/23/21 04:55 Chloride 104 mmol/L (98-10 7) 05/23/21 04:55 Carbon Dioxide 22 mmol/L (22-29) 05/23/21 04:55 Anion Gap 13.2 (5-19) 05/23/21 04:55 BUN 14 mg/dL (6-20) 05/23/21 04:55 Creatinine 0.5 mg/dL (0.7-1. 2) L 05/23/21 04:55 GFR Calculation 171.4 mL/min (90- 130) H 05/23/21 04:55 Glucose 135 mg/dL (65-115 ) H 05/23/21 04:55 Calculated Osmolal ity 285 mOsm/kg (285- 295) 05/23/21 04:55 Lactic Acid 1.5 mmol/L (0.5-2 .2) 05/22/21 16:17 Calcium 8.2 mg/dL (8.5-10 .5) L 05/23/21 04:55 Total Bilirubin 1.5 mg/dL (0.15-1 .2) H 05/23/21 04:55 AST 15 U/L (0-40) 05/23/21 04:55 ALT 16 U/L (0-41) 05/23/21 04:55 Alkaline Phosphata se 79 IU/L (40-130) 05/23/21 04:55 Creatine Kinase 8 U/L (39-308) L 05/22/21 16:17 Troponin T Baselin e 12 ng/L (0-15) 05/22/21 16:17 Troponin T 120 Min gavi 12.59 ng/L (0-15) 05/22/21 18:17 Delta Troponin T 0.59 ABS# (0-10) 05/22/21 18:17 Troponin T Hi Sens 6Hr 9.89 ng/L (0-15) 05/22/21 22:19 Troponin T Hi Sens 6Hr Delta -2.11 ng/L (0-12) L 05/22/21 22:19 Total Protein 5.7 g/dL (6.6-8.7 ) L 05/23/21 04:55 Albumin 3.6 g/dL (3.5-5.2 ) 05/23/21 04:55 Globulin 2.1 g/dL (1.3-4.6 ) 05/23/21 04:55 Procalcitonin 1.42 ng/mL (0-0.5 ) H 05/23/21 04:55 Urine Color Yellow (Yellow) 05/22/21 16:15 Urine Appearance Clear (CLEAR) 05/22/21 16:15 Urine pH 7 (5-7) 05/22/21 16:15 Ur Specific Gravit y 1.010 (1.005-1.0 30) 05/22/21 16:15 Urine Protein 1+ (Negative) H 05/22/21 16:15 Urine Glucose (UA) Norm (Normal) 05/22/21 16:15 Urine Ketones 1+ (Negative) H 05/22/21 16:15 Urine Blood 2+ (Negative) H 05/22/21 16:15 Urine Nitrate Positive (Negati ve) H 05/22/21 16:15 Urine Bilirubin Neg (Negative) 05/22/21 16:15 Urine Urobilinogen Norm mg/dL (Negat velia) 05/22/21 16:15 Ur Leukocyte Nancy ase Negative (Negati ve) 05/22/21 16:15 Urine RBC 0-4 /hpf (0-2) H 05/22/21 16:15 Urine WBC 10-15 /hpf (0-5) H 05/22/21 16:15 Ur Squamous Epith Cells 0-4 /hpf (0-5) H 05/22/21 16:15 Amorphous Sediment Not Reportable 05/22/21 16:15 Urine Bacteria 3+ /hpf (NONE) H 05/22/21 16:15 Impressions Chest X-Ray 05/22/21 15:22 IMPRESSION: Nonacute. Chest CTA 05/23/21 08:00 IMPRESSION: 1. No pulmonary embolism. 2. Complete atelectasis LEFT lower lobe. 3. Increased soft tissue in the distal LEFT main bronchus and extending into the bronchial tree of the LEFT lower lobe. Underlying mass in the proximal LEFT lower lobe bronchus is not excluded. 4. Diffuse bilateral areas of opacification and pneumonitis. 5. Mild LEFT heart enlargement. Notified Jarrell Thomas MD at 05/23/2021 11:36 AM. Micro: Micro: Microbiology 05/22/21 15:54 Blood Culture - Pr eliminary Blood NEGATIVE TO VALENTÍN E 05/22/21 15:54 Blood Culture - Pr eliminary Blood NEGATIVE TO VALENTÍN E A&P Assessment and plan (1) Acute respiratory failure with hypoxemia: Status: Acute (2) Recurrent aspiration pneumonia: Status: Acute (3) Gastrostomy tube dependent: Status: Acute (4) Multiple sclerosis: Status: Acute (5) Sepsis: Status: Acute Qualifiers: Sepsis type: sepsis due to unspecified organism Severe sepsis shock status: without septic shock Sepsis acute organ dysfunction status: with acute organ dysfunction Severe sepsis acute organ dysfunction type: encephalopathy Qualified Code(s): A41.9 - Sepsis, unspecified organism; R65.20 - Severe sepsis without septic shock; G93.40 - Encephalopathy, unspecified (6) DNR (do not resuscitate): Status: Acute # acute hypoxic respiratory failure due to pneumonia - most likely aspiration # CT evidence left lower opacity - most likely debris vs underlying mass and post obstructive pneumonia # Given h/o of multiple sclerosis and bed ridden for last 8 years and dysphagia s/p PEG tube - most likely aspiration # recent admission to outside hospital for aspiration pneumonia - currently requiring 40L and 80% FIO2 - On admission temp 100.9, normal wbc count, elevated procalcitonin - on vancomycin and zosyn (day 2) ; pharmacy consult to dose vancomycin - Ct chest 05/22/21 showed complete atelectasis LEFT lower lobe. Increased soft tissue in the distal LEFT main bronchus and extending into the bronchial tree of the LEFT lower lobe. Underlying mass in the proximal LEFT lower lobe bronchus is not excluded. - Planned for bronchsocpy tomorrow for airway inspection and obtaining BAL for cultures and cytology and possible endobronchial biopsies - Informed mother that with such high O2 requirement on HFNC ; pt might get intubated during bronchoscopy; but she reported that pt wouldn't want to be intubated- - will give mucomist and hypertonic saline nebulizations and do aggressive suctioning overnight - if O2 requirements come down by tomorrow - will do bronchoscopy under conscious sedation for airway inspection and obtain bronchoalveolar lavage for cultures and cytology - will perform endobrochial biopsies if there are any endobronchial biopsies - Same thing explained to mother and she verbalized understanding and agreed with the plan Recommendations conveyed to hospitalist, RN covering the patient Consult Attestations Medical Necessity Statement: acute hypoxic respirataroy failure in bedbound patient with recurrent aspiration pneumonia requiring high flow oxygen Time Spent in Patient Care: (>than 50% of time spent in counselling and/or direct pt care on unit) . Critical Care Time: Critical Care Time (min): 35 Coding Level of Care Code New Pt Acute Mini Shifter for Macie Fwd Patient Type New History Comprehensive Exam Comprehensive Medical Decision Making Moderate Complexity Diagnoses Acute respiratory failure with hypoxemia J96.01 Recurrent aspiration pneumonia J69.0 Gastrostomy tube dependent Z93.1 Multiple sclerosis G35 Sepsis A41.9; R65.20; G93.40 Sepsis type: sepsis due to unspecified organism Severe sepsis shock status: without septic shock Sepsis acute organ dysfunction status: with acute organ dysfunction Severe sepsis acute organ dysfunction type: encephalopathy DNR (do not resuscitate) Z66 Time Spent (min) 35
[2021-05-23] MEDS: acetylcysteine 200 mg/mL SDV 4 mL 100 MG INHALATION (21:09)
[2021-05-23] MEDS: sodium chloride 3.5% neb 4 mL Neb INHALATION (21:09)
[2021-05-24] VITALS (20 sets, daily range): BP systolic 117–135; BP diastolic 53–85; PULSE 64–127; RESP 16–23; TEMP 36.4–37.4; O2SAT 92–100
[2021-05-24] MEDS: acetylcysteine 200 mg/mL SDV 4 mL 100 MG INHALATION ×6 (01:22→20:47)
[2021-05-24] MEDS: sodium chloride 3.5% neb 4 mL Neb INHALATION ×5 (01:22→20:47)
[2021-05-24] MEDS: vancomycin 1,000 MG in sodium chloride 0.9% 250 ML 250 MG IV ×3 (03:27→20:09)
--- NOTE | 2021-05-24 05:00 | XR_ITS ---
WS: [id number] Portable AP upright chest, 05/24/2021 Clinical Data: resolution of aspiration pneumonia Comparison: Portable chest, 05/22/2021. Findings: There is a patchy opacity over the surface of the left diaphragm which has increased. There is right basilar opacity and right middle lobe opacity which have increased. The heart is normal. No pneumothorax is seen. The aortic arch shows tortuosity. No nodules or masses are seen. XR/XR chest 1V portable [id number] Impression: 1. Increasing atelectasis and/or minimal pneumonia over surface of both diaphra gms and in the right middle lobe. 2. Atherosclerosis.
[2021-05-24] MEDS: piperacillin-tazobactam 3.375 GM in sodium chloride 0.9% (plus) 50 ML IV ×2 (05:01→21:31)
[2021-05-24] MEDS: heparin 5,000 unit/mL INJ 1 mL 5000 UNIT SUBCUT ×2 (05:01→17:39)
[2021-05-24 05:42] LABS: Basophils % 0.2 %; Eosinophils # 0.1 10^3/uL (0.0-0.8); Eosinophils % 0.6 %; Hematocrit 37.3 % (42.0-52.0); Hemoglobin 12.3 g/dL (11.7-16.6); Lymphocytes # 0.9 10^3/uL (0.8-4.8); Lymphocytes % 9.2 %; Mean Corpuscular Hemoglobin 28.9 pg (28.0-34.0); Mean Corpuscular Volume 87.6 fL (80-94); Mean Platelet Volume 11.5 fL (7.4-10.4); Monocytes # 0.9 10^3/uL (0.2-0.9); Monocytes % 8.7 %; Neutrophils # 8.03 10^3/uL (1.8-7.7); Neutrophils % 80.8 %; Nucleated Red Blood Cells % 0 %; Platelet Count 169 10^3/cmm (130-400); Red Blood Count 4.26 10^6/uL (4.1-5.3); Red Cell Distribution Width 15.4 % (12.1-15.1); White Blood Count 9.9 10^3/uL (4.0-10.0)
[2021-05-24 06:02] LABS: Alanine Aminotransferase 11 U/L (0-41); Albumin Level 3.3 g/dL (3.5-5.2); Alkaline Phosphatase 72 IU/L (40-130); Anion Gap 13.7 (5-19); Aspartate Amino Transferase 10 U/L (0-40); Blood Urea Nitrogen 12 mg/dL (6-20); Calcium 8.3 mg/dL (8.5-10.5); Carbon Dioxide 23 mmol/L (22-29); Chloride 103 mmol/L (98-107); Glomerular Filtration Rate 493.4 mL/min (90-130); Glucose 86 mg/dL (65-115); Osmolality Calculated 283 mOsm/kg (285-295); Sodium 137 mmol/L (136-145); Total Bilirubin 1.1 mg/dL (0.15-1.2); Total Protein 5.3 g/dL (6.6-8.7)
[2021-05-24 06:06] LABS: Procalcitonin 1.18 ng/mL (0-0.5)
[2021-05-24 06:10] LABS: Potassium 2.7 mmol/L (3.5-5.1)
[2021-05-24] MEDS: lidocaine 1% 5 ML in potassium chloride premix 100 ML 25 ML IV (06:47)
[2021-05-24] MEDS: potassium chloride ER 20 mEq Tablet 40 MEQ PO (07:26)
[2021-05-24] MEDS: baclofen 10 mg Tablet 15 MG PEG-TUBE ×2 (07:27→20:13)
[2021-05-24] MEDS: ipratropium-albuterol 3 mL Neb INHALATION ×3 (08:13→20:47)
[2021-05-24 12:14] LABS: Vancomycin Trough 15.8 ug/mL (10-15)
[2021-05-24 13:25] LABS: Potassium 3.9 mmol/L (3.5-5.1)
--- NOTE | 2021-05-24 13:30 | P.ANESASSM_ITS ---
Pre-Anesthetic Assessment Pre-Anesthetic Assessment: Height/Weight: Height 1.65 m Weight 61.235 kg Temp Pulse Resp BP Pulse Ox 97.5 F L 101 H 18 119/68 95 05/24/21 11:24 05/24/21 12:02 05/24/21 11:51 05/24/21 11:24 05/24/21 11:51 Preop Diagnosis: aspiration pneumonia Proposed Procedure: Operation Date: 05/24/21 13:30 Proposed Procedures p Bronchoscopy(Not Applicable) - Rick Velásquez DatarMD Was Clonidine taken within 24 hours: N/A Last intake: Intake Last Liquid Date 05/23/21 Last Liquid Time 2330 Social: Social History: No alcohol and No tobacco Exam: Pre-Anes Outpt Exam: alert and oriented x 3 Additional Exam Findings (including area of procedure): diminished breath sounds expiratory wheezes. Airway: Submandibular: WNL Cervical ROM: WNL MP: 2 Dentition: Chipped History/ROS: No significant history except as noted Pulmonary: Pulmonary: Cough, SOB and URI Comments: frequent aspiration pneumonia, high flow nasal cannula. ARDS CV/HEM: CV/HEM: HTN Comments: denies any previous cardiac workup or issues. : Comments: urostomy tube in place. Hepatic: Hepatic: None reported GI: Comments: gastrostomy tube, tube feedings held. Metabolic: Metabolic: None reported Musc/skel: Musc/skel: Weakness (progressive M.S.) Neuropsych: Neuropsych: Depression Anesthetic Plan: ASA status: 4 Anesthesia: Anesthesia Evaluation and General Risk of > 500 ml blood loss (7ml/kg in children): No Other Pertinent Information: DNR. Meds/Allergies Current Medications: Current Medications Generic Name Dose Route Start Last Admin Trade Name Freq PRN Reason Stop Dose Admin Acetaminophen 650 mg 05/23/21 00:22 05/23/21 11:25 Acetaminophen 32 5 Mg Tablet PO 650 mg Q6H PRN Administration MILD PAIN Acetylcysteine 100 mg 05/23/21 20:00 05/24/21 11:38 Acetylcysteine 2 00 Mg/Ml Sdv 4 Ml INHALATION 100 mg Q4H.RESPIRATORY S CH Administration Albuterol/Ipratrop ium 3 ml 05/22/21 19:57 05/24/21 08:13 Ipratropium-Albu terol 3 Ml Neb INHALATION 3 ml Q6H PRN Administration SHORTNESS OF VALERIY TH Baclofen 15 mg 05/23/21 12:00 05/24/21 11:36 Baclofen 10 Mg T ablet PEG-TUBE Not Given 0800,1200,1600,20 00 BENNIE Heparin Sodium (Be ef Lung) 5,000 unit 05/22/21 17:45 05/24/21 05:01 Heparin 5,000 Un it/Ml Inj 1 Ml SUBCUT 5,000 unit Q12H BENNIE Administration Piperacillin Sod/T azobactam 50 mls @ 12.5 mls /hr 05/23/21 14:00 05/24/21 09:44 Sod 3.375 gm/ So dium Chloride IV Infused Q8H BENNIE Infusion Vancomycin HCl 1,0 00 mg/ 250 mls @ 250 mls /hr 05/23/21 20:00 05/24/21 12:28 Sodium Chloride IV 250 mls/hr Q8H BENNIE Administration Non-Formulary Medi cation 10 mg 05/23/21 09:00 05/24/21 09:58 Dalfampridine PEG-TUBE Not Given BID BENNIE Non-Formulary Medi cation 14 mg 05/23/21 09:00 05/24/21 09:58 Aubagio PEG-TUBE Not Given DAILY BENNIE Ondansetron HCl 4 mg 05/22/21 21:52 05/22/21 22:32 Ondansetron 2 Mg /Ml Sdv 2 Ml IVP 4 mg Q6H PRN Administration NAUSEA AND VOMITI NG Pantoprazole Sodiu m 40 mg 05/22/21 17:45 05/23/21 17:09 Pantoprazole 40 Mg Sdv IVP 40 mg Q24H BENNIE Administration Sodium Chloride 4 ml 05/23/21 20:45 05/24/21 11:50 Sodium Chloride 3.5% Neb 4 Ml Neb INHALATION 4 ml Q4H BENNIE Administration PFSH Anesthesia PFSH: Medical History Acute and chronic respiratory failure with hypoxia Aspiration pneumonia Depression DNR (do not resuscitate) Hypertension Multiple sclerosis alf resident Surgical History H/O right inguinal hernia repair H/O umbilical hernia repair S/P percutaneous endoscopic gastrostomy (PEG) tube placement S/P rotator cuff repair Family History Other Dementia Psychiatric illness Social History Smoking and tobacco status: never smoked Alcohol intake: never Adopted: No Caregiver/support person: Yes Lives independently: No Housing: [facility] Marital status: Single service: No Current occupational status: disabled Pets and animals: Yes History of recent travel: No Current gender identity: Male Data Anesthesia CBC & Chem 7: 05/24/21 05:04 05/24/21 11:30 Other Labs: Laboratory Results - last 48 hr 05/22/21 05/22/21 05/22/21 15:40 15:43 15:43 WBC 8.1 RBC 5.27 Hgb 15.0 Hct 48.0 MCV 91.1 MCH 28.5 MCHC 31.3 RDW 15.9 H Plt Count 169 MPV 11.6 H Neut % (Auto) 85.0 Lymph % (Auto) 5.1 [place] % (Auto) 8.9 Eos % (Auto) 0.2 Baso % (Auto) 0.4 Neut # (Auto) 6.87 Lymph # (Auto) 0.4 L [place] # (Auto) 0.7 Eos # (Auto) 0.0 Baso # (Auto) 0.0 Nucleated RBC % (auto) 0 Total Counted Atypical Lymphs % Absolute Neutrophils Segmented Neutrophils Abs Segm Neuts (Man) Band Neutrophils Abs Band Neuts (Man) Absolute Lymphocytes Lymphocytes (Manual) Monocytes (Manual) Absolute Monocytes Eosinophils (Manual) Absolute Eosinophils Basophils (Manual) Absolute Basophils Nucleated RBCs # 0.0 Platelet Estimate Specimen Type Arterial Sample Site Radial, left ABG pH 7.38 ABG pCO2 42.0 ABG pO2 43.3 L ABG HCO3 25.0 ABG O2 Saturation 81.7 ABG Base Excess -0.3 Carl Test Pos A-a O2 Gradient 80.4 H Hematocrit 47.5 Hgb O2 Saturation 79.6 L Carboxyhemoglobin 1.9 Methemoglobin 0.7 Total Hemoglobin 15.5 Sodium 138.0 Cancelled Potassium 3.7 Cancelled Glucose 165.0 H Cancelled Ionized Calcium 1.2 O2 Delivery Device Nrb O2 Liters/Min 15.0 FiO2 100.0 [employer] Professor ID [place] Chloride Cancelled Carbon Dioxide Cancelled Anion Gap Cancelled BUN Cancelled Creatinine Cancelled GFR Calculation Cancelled Calculated Osmolality Cancelled Lactic Acid Calcium Cancelled Total Bilirubin Cancelled AST Cancelled ALT Cancelled Alkaline Phosphatase Cancelled Creatine Kinase Cancelled Troponin T Baseline Troponin T 120 Minute Delta Troponin T Troponin T Hi Sens 6Hr Troponin T Hi Sens 6Hr Delta Total Protein Cancelled Albumin Cancelled Globulin Cancelled Procalcitonin Urine Color Urine Appearance Urine pH Ur Specific [place] Urine Protein Urine Glucose (UA) Urine Ketones Urine Blood Urine Nitrate Urine Bilirubin Urine Urobilinogen Ur Leukocyte Esterase Urine RBC Urine WBC Ur Squamous Epith Cells Amorphous Sediment Urine Bacteria Vancomycin Trough 05/22/21 05/22/21 05/22/21 15:43 15:43 16:15 WBC RBC Hgb Hct MCV MCH MCHC RDW Plt Count MPV Neut % (Auto) Lymph % (Auto) [place] % (Auto) Eos % (Auto) Baso % (Auto) Neut # (Auto) Lymph # (Auto) [place] # (Auto) Eos # (Auto) Baso # (Auto) Nucleated RBC % (auto) Total Counted Atypical Lymphs % Absolute Neutrophils Segmented Neutrophils Abs Segm Neuts (Man) Band Neutrophils Abs Band Neuts (Man) Absolute Lymphocytes Lymphocytes (Manual) Monocytes (Manual) Absolute Monocytes Eosinophils (Manual) Absolute Eosinophils Basophils (Manual) Absolute Basophils Nucleated RBCs # Platelet Estimate Specimen Type Sample Site ABG pH ABG pCO2 ABG pO2 ABG HCO3 ABG O2 Saturation ABG Base Excess Carl Test A-a O2 Gradient Hematocrit Hgb O2 Saturation Carboxyhemoglobin Methemoglobin Total Hemoglobin Sodium Potassium Glucose Ionized Calcium O2 Delivery Device O2 Liters/Min FiO2 [employer] Professor ID Chloride Carbon Dioxide Anion Gap BUN Creatinine GFR Calculation Calculated Osmolality Lactic Acid Cancelled Calcium Total Bilirubin AST ALT Alkaline Phosphatase Creatine Kinase Troponin T Baseline Cancelled Troponin T 120 Minute Delta Troponin T Troponin T Hi Sens 6Hr Troponin T Hi Sens 6Hr Delta Total Protein Albumin Globulin Procalcitonin Urine Color Yellow Urine Appearance Clear Urine pH 7 Ur Specific [place] 1.010 Urine Protein 1+ H Urine Glucose (UA) Norm Urine Ketones 1+ H Urine Blood 2+ H Urine Nitrate Positive H Urine Bilirubin Neg Urine Urobilinogen Norm Ur Leukocyte Esterase Negative Urine RBC 0-4 H Urine WBC 10-15 H Ur Squamous Epith Cells 0-4 H Amorphous Sediment Not Reportable Urine Bacteria 3+ H Vancomycin Trough 05/22/21 05/22/21 05/22/21 16:17 16:17 16:17 WBC RBC Hgb Hct MCV MCH MCHC RDW Plt Count MPV Neut % (Auto) Lymph % (Auto) [place] % (Auto) Eos % (Auto) Baso % (Auto) Neut # (Auto) Lymph # (Auto) [place] # (Auto) Eos # (Auto) Baso # (Auto) Nucleated RBC % (auto) Total Counted Atypical Lymphs % Absolute Neutrophils Segmented Neutrophils Abs Segm Neuts (Man) Band Neutrophils Abs Band Neuts (Man) Absolute Lymphocytes Lymphocytes (Manual) Monocytes (Manual) Absolute Monocytes Eosinophils (Manual) Absolute Eosinophils Basophils (Manual) Absolute Basophils Nucleated RBCs # Platelet Estimate Specimen Type Sample Site ABG pH ABG pCO2 ABG pO2 ABG HCO3 ABG O2 Saturation ABG Base Excess Carl Test A-a O2 Gradient Hematocrit Hgb O2 Saturation Carboxyhemoglobin Methemoglobin Total Hemoglobin Sodium 133 L Potassium 3.8 Glucose 151 H Ionized Calcium O2 Delivery Device O2 Liters/Min FiO2 [employer] Professor ID Chloride 98 Carbon Dioxide 24 Anion Gap 14.8 BUN 18 Creatinine 0.2 L GFR Calculation 493.4 H Calculated Osmolality 281 L Lactic Acid 1.5 Calcium 8.8 Total Bilirubin 1.6 H AST 16 ALT 18 Alkaline Phosphatase 101 Creatine Kinase 8 L Troponin T Baseline 12 Troponin T 120 Minute Delta Troponin T Troponin T Hi Sens 6Hr Troponin T Hi Sens 6Hr Delta Total Protein 6.4 L Albumin 4.2 Globulin 2.2 Procalcitonin Urine Color Urine Appearance Urine pH Ur Specific [place] Urine Protein Urine Glucose (UA) Urine Ketones Urine Blood Urine Nitrate Urine Bilirubin Urine Urobilinogen Ur Leukocyte Esterase Urine RBC Urine WBC Ur Squamous Epith Cells Amorphous Sediment Urine Bacteria Vancomycin Trough 05/22/21 05/22/21 05/23/21 18:17 22:19 04:55 WBC 6.9 RBC 4.84 Hgb 13.8 Hct 43.3 MCV 89.5 MCH 28.5 MCHC 31.9 RDW 15.5 H Plt Count 160 MPV 11.9 H Neut % (Auto) Lymph % (Auto) Not Reportable [place] % (Auto) Not Reportable Eos % (Auto) Baso % (Auto) Neut # (Auto) Lymph # (Auto) Not Reportable [place] # (Auto) Not Reportable Eos # (Auto) Baso # (Auto) Nucleated RBC % (auto) Total Counted 100 Atypical Lymphs % 0.0 Absolute Neutrophils 5.7 Segmented Neutrophils 51 Abs Segm Neuts (Man) 3.5 Band Neutrophils 31.0 Abs Band Neuts (Man) 2.1 H Absolute Lymphocytes 0.4 L Lymphocytes (Manual) 6 Monocytes (Manual) 12.0 Absolute Monocytes 0.8 H Eosinophils (Manual) 0 Absolute Eosinophils 0.0 Basophils (Manual) 0.0 Absolute Basophils 0.0 Nucleated RBCs # Platelet Estimate Normal Specimen Type Sample Site ABG pH ABG pCO2 ABG pO2 ABG HCO3 ABG O2 Saturation ABG Base Excess Carl Test A-a O2 Gradient Hematocrit Hgb O2 Saturation Carboxyhemoglobin Methemoglobin Total Hemoglobin Sodium Potassium Glucose Ionized Calcium O2 Delivery Device O2 Liters/Min FiO2 [employer] Professor ID Chloride Carbon Dioxide Anion Gap BUN Creatinine GFR Calculation Calculated Osmolality Lactic Acid Calcium Total Bilirubin AST ALT Alkaline Phosphatase Creatine Kinase Troponin T Baseline Troponin T 120 Minute 12.59 Delta Troponin T 0.59 Troponin T Hi Sens 6Hr 9.89 Troponin T Hi Sens 6Hr Delta -2.11 L Total Protein Albumin Globulin Procalcitonin Urine Color Urine Appearance Urine pH Ur Specific [place] Urine Protein Urine Glucose (UA) Urine Ketones Urine Blood Urine Nitrate Urine Bilirubin Urine Urobilinogen Ur Leukocyte Esterase Urine RBC Urine WBC Ur Squamous Epith Cells Amorphous Sediment Urine Bacteria Vancomycin Trough 05/23/21 05/23/21 05/24/21 04:55 04:55 05:04 WBC 9.9 RBC 4.26 Hgb 12.3 Hct 37.3 L MCV 87.6 MCH 28.9 MCHC 33.0 RDW 15.4 H Plt Count 169 MPV 11.5 H Neut % (Auto) 80.8 Lymph % (Auto) 9.2 [place] % (Auto) 8.7 Eos % (Auto) 0.6 Baso % (Auto) 0.2 Neut # (Auto) 8.03 H Lymph # (Auto) 0.9 [place] # (Auto) 0.9 Eos # (Auto) 0.1 Baso # (Auto) 0.0 Nucleated RBC % (auto) 0 Total Counted Atypical Lymphs % Absolute Neutrophils Segmented Neutrophils Abs Segm Neuts (Man) Band Neutrophils Abs Band Neuts (Man) Absolute Lymphocytes Lymphocytes (Manual) Monocytes (Manual) Absolute Monocytes Eosinophils (Manual) Absolute Eosinophils Basophils (Manual) Absolute Basophils Nucleated RBCs # 0.0 Platelet Estimate Specimen Type Sample Site ABG pH ABG pCO2 ABG pO2 ABG HCO3 ABG O2 Saturation ABG Base Excess Carl Test A-a O2 Gradient Hematocrit Hgb O2 Saturation Carboxyhemoglobin Methemoglobin Total Hemoglobin Sodium 136 Potassium 3.2 L Glucose 135 H Ionized Calcium O2 Delivery Device O2 Liters/Min FiO2 [employer] Professor ID Chloride 104 Carbon Dioxide 22 Anion Gap 13.2 BUN 14 Creatinine 0.5 L GFR Calculation 171.4 H Calculated Osmolality 285 Lactic Acid Calcium 8.2 L Total Bilirubin 1.5 H AST 15 ALT 16 Alkaline Phosphatase 79 Creatine Kinase Troponin T Baseline Troponin T 120 Minute Delta Troponin T Troponin T Hi Sens 6Hr Troponin T Hi Sens 6Hr Delta Total Protein 5.7 L Albumin 3.6 Globulin 2.1 Procalcitonin 1.42 H Urine Color Urine Appearance Urine pH Ur Specific [place] Urine Protein Urine Glucose (UA) Urine Ketones Urine Blood Urine Nitrate Urine Bilirubin Urine Urobilinogen Ur Leukocyte Esterase Urine RBC Urine WBC Ur Squamous Epith Cells Amorphous Sediment Urine Bacteria Vancomycin Trough 05/24/21 05/24/21 05/24/21 05:04 05:04 11:30 WBC RBC Hgb Hct MCV MCH MCHC RDW Plt Count MPV Neut % (Auto) Lymph % (Auto) [place] % (Auto) Eos % (Auto) Baso % (Auto) Neut # (Auto) Lymph # (Auto) [place] # (Auto) Eos # (Auto) Baso # (Auto) Nucleated RBC % (auto) Total Counted Atypical Lymphs % Absolute Neutrophils Segmented Neutrophils Abs Segm Neuts (Man) Band Neutrophils Abs Band Neuts (Man) Absolute Lymphocytes Lymphocytes (Manual) Monocytes (Manual) Absolute Monocytes Eosinophils (Manual) Absolute Eosinophils Basophils (Manual) Absolute Basophils Nucleated RBCs # Platelet Estimate Specimen Type Sample Site ABG pH ABG pCO2 ABG pO2 ABG HCO3 ABG O2 Saturation ABG Base Excess Carl Test A-a O2 Gradient Hematocrit Hgb O2 Saturation Carboxyhemoglobin Methemoglobin Total Hemoglobin Sodium 137 Potassium 2.7 L* Glucose 86 Ionized Calcium O2 Delivery Device O2 Liters/Min FiO2 [employer] Professor ID Chloride 103 Carbon Dioxide 23 Anion Gap 13.7 BUN 12 Creatinine 0.2 L GFR Calculation 493.4 H Calculated Osmolality 283 L Lactic Acid Calcium 8.3 L Total Bilirubin 1.1 AST 10 ALT 11 Alkaline Phosphatase 72 Creatine Kinase Troponin T Baseline Troponin T 120 Minute Delta Troponin T Troponin T Hi Sens 6Hr Troponin T Hi Sens 6Hr Delta Total Protein 5.3 L Albumin 3.3 L Globulin 2.0 Procalcitonin 1.18 H Urine Color Urine Appearance Urine pH Ur Specific [place] Urine Protein Urine Glucose (UA) Urine Ketones Urine Blood Urine Nitrate Urine Bilirubin Urine Urobilinogen Ur Leukocyte Esterase Urine RBC Urine WBC Ur Squamous Epith Cells Amorphous Sediment Urine Bacteria Vancomycin Trough 15.8 H 05/24/21 11:30 WBC RBC Hgb Hct MCV MCH MCHC RDW Plt Count MPV Neut % (Auto) Lymph % (Auto) [place] % (Auto) Eos % (Auto) Baso % (Auto) Neut # (Auto) Lymph # (Auto) [place] # (Auto) Eos # (Auto) Baso # (Auto) Nucleated RBC % (auto) Total Counted Atypical Lymphs % Absolute Neutrophils Segmented Neutrophils Abs Segm Neuts (Man) Band Neutrophils Abs Band Neuts (Man) Absolute Lymphocytes Lymphocytes (Manual) Monocytes (Manual) Absolute Monocytes Eosinophils (Manual) Absolute Eosinophils Basophils (Manual) Absolute Basophils Nucleated RBCs # Platelet Estimate Specimen Type Sample Site ABG pH ABG pCO2 ABG pO2 ABG HCO3 ABG O2 Saturation ABG Base Excess Carl Test A-a O2 Gradient Hematocrit Hgb O2 Saturation Carboxyhemoglobin Methemoglobin Total Hemoglobin Sodium Potassium 3.9 Glucose Ionized Calcium O2 Delivery Device O2 Liters/Min FiO2 [employer] Professor ID Chloride Carbon Dioxide Anion Gap BUN Creatinine GFR Calculation Calculated Osmolality Lactic Acid Calcium Total Bilirubin AST ALT Alkaline Phosphatase Creatine Kinase Troponin T Baseline Troponin T 120 Minute Delta Troponin T Troponin T Hi Sens 6Hr Troponin T Hi Sens 6Hr Delta Total Protein Albumin Globulin Procalcitonin Urine Color Urine Appearance Urine pH Ur Specific [place] Urine Protein Urine Glucose (UA) Urine Ketones Urine Blood Urine Nitrate Urine Bilirubin Urine Urobilinogen Ur Leukocyte Esterase Urine RBC Urine WBC Ur Squamous Epith Cells Amorphous Sediment Urine Bacteria Vancomycin Trough Micro: Microbiology 05/23/21 23:15 MRSA Culture - Final Nose 05/23/21 23:15 Bacterial Antigens - Final Urine,Voided 05/22/21 16:15 Urine Culture - Preliminary Urine,Clean Catch Gram Negative Rods 05/22/21 15:54 Blood Culture - Preliminary Blood NEGATIVE TO DATE 05/22/21 15:54 Blood Culture - Preliminary Blood NEGATIVE TO DATE Cardiac Studies: No Data to Display
--- NOTE | 2021-05-24 13:46 | PM.PN ---
Subjective Subjective: Interval history: Patient seen at bedside today -He was on 40 L 80% yesterday -Received Mucomyst and hypertonic saline nebulization overnight with chest physiotherapy and aggressive suctioning -today down to 6 L nasal cannula saturating 93% -N.p.o. for bronchoscopy today afternoon -Potassium 2.7-supplemented 2 doses of 40 M EQ IV and 1 dose of 40 M EQ through PEG tube-repeat value 3.9 -Labs and imaging reviewed and pertinent findings included in assessment and plan Medications: Reviewed: Yes Vitals/I&O/Wt Last Vital Signs Temp 97.5 F L 05/24/21 11:24 Pulse 101 H 05/24/21 12:02 Resp 18 05/24/21 11:51 BP 119/68 05/24/21 11:24 Pulse Ox 95 05/24/21 11:51 05/23/21 05/24/21 05/24/21 22:59 06:59 14:59 Intake Total 300 / 350 300 / 650 155 / 155 Output Total 650 / 950 400 / 1350 Balance -350 / -600 -100 / -700 155 / 155 Weight last 48 hrs Weight 135 lb Physical Exam Narrative: EXAM NARRATIVE: General: alert, NAD, opens eyes and communicated occasioanlly HEENT: conj clear, EOMI, PERRL, mmm, Neck: supple, no meningismus Heme: no cervical LAP Pulmonary: reduced breath sounds on left lower lobe Abdomen: soft, nt, nd, no r/g, bs+ Extremities: pulses +, no edema, no c/c : no CVA tenderness Skin: intact, no rash MSK: no back or neck pain Neurologic: cannot move his limbs Urinary Catheter Management^: 16: Cath Placed During This Visit: yes Reason for Continuing Indwelling Catheter: Assist healing open wound Urinary Catheter Date of Insertion: 05/23/21 Urinary Catheter Time of Insertion: 11:50 Data : 05/24/21 05:04 05/24/21 11:30 Other Labs: Laboratory Results WBC 9.9 10^3/uL (4.0-10.0) 05/24/21 05:04 RBC 4.26 10^6/uL (4.1-5.3) 05/24/21 05:04 Hgb 12.3 g/dL (11.7-16.6) 05/24/21 05:04 Hct 37.3 % (42.0-52.0) L 05/24/21 05:04 MCV 87.6 fL (80-94) 05/24/21 05:04 MCH 28.9 pg (28.0-34.0) 05/24/21 05:04 MCHC 33.0 g/dL (30.0-36.0) 05/24/21 05:04 RDW 15.4 % (12.1-15.1) H 05/24/21 05:04 Plt Count 169 10^3/cmm (130-400) 05/24/21 05:04 MPV 11.5 fL (7.4-10.4) H 05/24/21 05:04 Neut % (Auto) 80.8 % 05/24/21 05:04 Lymph % (Auto) 9.2 % 05/24/21 05:04 [place] % (Auto) 8.7 % 05/24/21 05:04 Eos % (Auto) 0.6 % 05/24/21 05:04 Baso % (Auto) 0.2 % 05/24/21 05:04 Neut # (Auto) 8.03 10^3/uL (1.8-7.7) H 05/24/21 05:04 Lymph # (Auto) 0.9 10^3/uL (0.8-4.8) 05/24/21 05:04 [place] # (Auto) 0.9 10^3/uL (0.2-0.9) 05/24/21 05:04 Eos # (Auto) 0.1 10^3/uL (0.0-0.8) 05/24/21 05:04 Baso # (Auto) 0.0 10^3/uL (0.0-0.1) 05/24/21 05:04 Nucleated RBC % (auto) 0 % 05/24/21 05:04 Total Counted 100 (0-100) 05/23/21 04:55 Atypical Lymphs % 0.0 % (0-5) 05/23/21 04:55 Absolute Neutrophils 5.7 10^3/cmm (1.4-6.5) 05/23/21 04:55 Segmented Neutrophils 51 % 05/23/21 04:55 Abs Segm Neuts (Man) 3.5 10/cmm (1.6-7.1) 05/23/21 04:55 Band Neutrophils 31.0 % 05/23/21 04:55 Abs Band Neuts (Man) 2.1 10^3/cmm (0.0-1.2) H 05/23/21 04:55 Absolute Lymphocytes 0.4 10^3/cmm (1.2-3.4) L 05/23/21 04:55 Lymphocytes (Manual) 6 % 05/23/21 04:55 Monocytes (Manual) 12.0 % 05/23/21 04:55 Absolute Monocytes 0.8 10^3/cmm (0.1-0.6) H 05/23/21 04:55 Eosinophils (Manual) 0 % 05/23/21 04:55 Absolute Eosinophils 0.0 10^3/cmm (0.0-0.7) 05/23/21 04:55 Basophils (Manual) 0.0 % 05/23/21 04:55 Absolute Basophils 0.0 10^3/cmm (0.0-0.2) 05/23/21 04:55 Nucleated RBCs # 0.0 /100WBC 05/24/21 05:04 Platelet Estimate Normal (Normal) 05/23/21 04:55 Specimen Type Arterial 05/22/21 15:40 Sample Site Radial, left 05/22/21 15:40 ABG pH 7.38 (7.35-7.45) 05/22/21 15:40 ABG pCO2 42.0 mmHg (35-45) 05/22/21 15:40 ABG pO2 43.3 mmHg (80.0-100.0) L 05/22/21 15:40 ABG HCO3 25.0 mmol/L (22-26) 05/22/21 15:40 ABG O2 Saturation 81.7 05/22/21 15:40 ABG Base Excess -0.3 mmol/L (-2.0-2.0) 05/22/21 15:40 Carl Test Pos 05/22/21 15:40 A-a O2 Gradient 80.4 mmHg (5-10) H 05/22/21 15:40 Hematocrit 47.5 % (42-52) 05/22/21 15:40 Hgb O2 Saturation 79.6 % (95-100) L 05/22/21 15:40 Carboxyhemoglobin 1.9 %THgb (0.4-20.1) 05/22/21 15:40 Methemoglobin 0.7 % (0.4-1.5) 05/22/21 15:40 Total Hemoglobin 15.5 g/dL (14-18) 05/22/21 15:40 Sodium 138.0 mmol/L (131-143) 05/22/21 15:40 Potassium 3.7 mmol/L (3.5-5.0) 05/22/21 15:40 Glucose 165.0 mg/dL (70-115) H 05/22/21 15:40 Ionized Calcium 1.2 mmol/L (1.1-1.4) 05/22/21 15:40 O2 Delivery Device Nrb 05/22/21 15:40 O2 Liters/Min 15.0 % 05/22/21 15:40 FiO2 100.0 % 05/22/21 15:40 Parking Patroller ID [place] 05/22/21 15:40 Sodium 137 mmol/L (136-145) 05/24/21 05:04 Potassium 3.9 mmol/L (3.5-5.1) 05/24/21 11:30 Chloride 103 mmol/L (98-107) 05/24/21 05:04 Carbon Dioxide 23 mmol/L (22-29) 05/24/21 05:04 Anion Gap 13.7 (5-19) 05/24/21 05:04 BUN 12 mg/dL (6-20) 05/24/21 05:04 Creatinine 0.2 mg/dL (0.7-1.2) L 05/24/21 05:04 GFR Calculation 493.4 mL/min (90-130) H 05/24/21 05:04 Glucose 86 mg/dL (65-115) 05/24/21 05:04 Calculated Osmolality 283 mOsm/kg (285-295) L 05/24/21 05:04 Lactic Acid 1.5 mmol/L (0.5-2.2) 05/22/21 16:17 Calcium 8.3 mg/dL (8.5-10.5) L 05/24/21 05:04 Total Bilirubin 1.1 mg/dL (0.15-1.2) 05/24/21 05:04 AST 10 U/L (0-40) 05/24/21 05:04 ALT 11 U/L (0-41) 05/24/21 05:04 Alkaline Phosphatase 72 IU/L (40-130) 05/24/21 05:04 Creatine Kinase 8 U/L (39-308) L 05/22/21 16:17 Troponin T Baseline 12 ng/L (0-15) 05/22/21 16:17 Troponin T 120 Minute 12.59 ng/L (0-15) 05/22/21 18:17 Delta Troponin T 0.59 ABS# (0-10) 05/22/21 18:17 Troponin T Hi Sens 6Hr 9.89 ng/L (0-15) 05/22/21 22:19 Troponin T Hi Sens 6Hr Delta -2.11 ng/L (0-12) L 05/22/21 22:19 Total Protein 5.3 g/dL (6.6-8.7) L 05/24/21 05:04 Albumin 3.3 g/dL (3.5-5.2) L 05/24/21 05:04 Globulin 2.0 g/dL (1.3-4.6) 05/24/21 05:04 Procalcitonin 1.18 ng/mL (0-0.5) H 05/24/21 05:04 Urine Color Yellow (Yellow) 05/22/21 16:15 Urine Appearance Clear (CLEAR) 05/22/21 16:15 Urine pH 7 (5-7) 05/22/21 16:15 Ur Specific [place] 1.010 (1.005-1.030) 05/22/21 16:15 Urine Protein 1+ (Negative) H 05/22/21 16:15 Urine Glucose (UA) Norm (Normal) 05/22/21 16:15 Urine Ketones 1+ (Negative) H 05/22/21 16:15 Urine Blood 2+ (Negative) H 05/22/21 16:15 Urine Nitrate Positive (Negative) H 05/22/21 16:15 Urine Bilirubin Neg (Negative) 05/22/21 16:15 Urine Urobilinogen Norm mg/dL (Negative) 05/22/21 16:15 Ur Leukocyte Esterase Negative (Negative) 05/22/21 16:15 Urine RBC 0-4 /hpf (0-2) H 05/22/21 16:15 Urine WBC 10-15 /hpf (0-5) H 05/22/21 16:15 Ur Squamous Epith Cells 0-4 /hpf (0-5) H 05/22/21 16:15 Amorphous Sediment Not Reportable 05/22/21 16:15 Urine Bacteria 3+ /hpf (NONE) H 05/22/21 16:15 Vancomycin Trough 15.8 ug/mL (10-15) H 05/24/21 11:30 Impressions Chest CTA 05/23/21 08:00 IMPRESSION: 1. No pulmonary embolism. 2. Complete atelectasis LEFT lower lobe. 3. Increased soft tissue in the distal LEFT main bronchus and extending into the bronchial tree of the LEFT lower lobe. Underlying mass in the proximal LEFT lower lobe bronchus is not excluded. 4. Diffuse bilateral areas of opacification and pneumonitis. 5. Mild LEFT heart enlargement. Notified Jarrell Thomas MD at 05/23/2021 11:36 AM. Chest X-Ray 05/24/21 05:00 Impression: 1. Increasing atelectasis and/or minimal pneumonia over surface of both diaphragms and in the right middle lobe. 2. Atherosclerosis. Micro: Microbiology 05/23/21 23:15 MRSA Culture - Final Nose 05/23/21 23:15 Bacterial Antigens - Final Urine,Voided 05/22/21 16:15 Urine Culture - Preliminary Urine,Clean Catch Gram Negative Rods 05/22/21 15:54 Blood Culture - Preliminary Blood NEGATIVE TO DATE 05/22/21 15:54 Blood Culture - Preliminary Blood NEGATIVE TO DATE A&P Assessment and plan (1) Acute respiratory failure with hypoxemia: Status: Acute (2) Recurrent aspiration pneumonia: Status: Acute (3) Gastrostomy tube dependent: Status: Acute (4) Multiple sclerosis: Status: Acute (5) Sepsis: Status: Acute Qualifiers: Sepsis acute organ dysfunction status: with acute organ dysfunction Sepsis type: sepsis due to unspecified organism Severe sepsis acute organ dysfunction type: encephalopathy Severe sepsis shock status: without septic shock Qualified Code(s): A41.9 - Sepsis, unspecified organism; R65.20 - Severe sepsis without septic shock; G93.40 - Encephalopathy, unspecified (6) DNR (do not resuscitate): Status: Acute (7) AMS (altered mental status): Status: Acute (8) Hypokalemia: Status: Acute #AMS likely secondary to urosepsis and aspiration pneumonia-improved mentation #Acute hypoxic respiratory failure due to pneumonia - most likely aspiration # CT evidence left lower opacity - most likely debris vs underlying mass and post obstructive pneumonia # Given h/o of multiple sclerosis and bed ridden for last 8 years and dysphagia s/p PEG tube - most likely aspiration # recent admission to outside hospital for aspiration pneumonia #Urine culture positive for gram-negative rods #Hypokalemia 2.7-supplemented - currently down to 6 L nasal cannula -Continue Mucomyst and hypertonic saline nebulizations with chest physiotherapy and aggressive suctioning - On admission temp 100.9-since then afebrile, normal wbc count, elevated procalcitonin - on vancomycin and zosyn (day 3) ; pharmacy consult to dose vancomycin - Ct chest 05/22/21 showed complete atelectasis LEFT lower lobe. Increased soft tissue in the distal LEFT main bronchus and extending into the bronchial tree of the LEFT lower lobe. Underlying mass in the proximal LEFT lower lobe bronchus is not excluded. - Planned for bronchsocpy today afternoon for airway inspection and obtaining BAL for cultures and cytology and possible endobronchial biopsies -will do bronchoscopy under conscious sedation for airway inspection and obtain bronchoalveolar lavage for cultures and cytology - will perform endobrochial biopsies if there are any endobronchial lesions - Same thing explained to mother and she verbalized understanding and agreed with the plan -K2.7 today morning-supplemented 2 doses of 40 M EQ IVPB and 1 dose of 40 M EQ through PEG tube-repeat K3.9 Medical condition, management plan everything explained in detail to patient's mother and she verbalized understanding and agreed with the plan and gave consent for bronchoscopy. Recommendations conveyed to hospitalist, RN covering the patient Attestations Medical Necessity Statement*: Patient require further hospitalization for management of respiratory failure due to healthcare associated pneumonia versus aspiration and urosepsis requiring IV antibiotics and bronchoscopy Time Spent in Patient Care: Greater than 35 minutes (>than 50% of time spent in counselling and/or direct pt care on unit). Critical Care Time: Critical Care Time (min): 35 Coding Level of Care Code Established Pt Acute Medical Administrative Assistant for Macie Klein Patient Type Established History Comprehensive Exam Comprehensive Medical Decision Making Moderate Complexity Diagnoses Acute respiratory failure with hypoxemia J96.01 Recurrent aspiration pneumonia J69.0 Gastrostomy tube dependent Z93.1 Multiple sclerosis G35 Sepsis A41.9; R65.20; G93.40 Sepsis acute organ dysfunction status: with acute organ dysfunction Sepsis type: sepsis due to unspecified organism Severe sepsis acute organ dysfunction type: encephalopathy Severe sepsis shock status: without septic shock DNR (do not resuscitate) Z66 AMS (altered mental status) R41.82 Hypokalemia E87.6 Time Spent (min) 35
[2021-05-24] MEDS: sodium chloride 0.9% 1,000 ML 30 ML IV (14:00)
--- NOTE | 2021-05-24 14:21 | P.PN_ITS ---
Subjective Subjective: Interval history: 56-year-old male with a past medical history significant for hypertension, barretts esophagus, chronic constipation, advanced multiple sclerosis with significant debility, bed bound, chronic sacral decubitus ulcer, dysphagia status post g- tube, severe chronic bladder outlet obstruction with indwelling Carey, and recurrent hospitalizations for respirat ory failure due to aspiration pneumonia was now presenting again to the hospital with respiratory distress. Patient was most recently discharged from [facility] on 04/13 after treatment for aspiration pneumonia. On 04/29 patient was again seen in ER during which time a CTA chest which showed persistent groundglass opacity with central cystic changes within the right upper lobe. Persistent perihilar mucous plugging, consolidation and bibasilar groundglass opacities. Patient was discharge back to SNF. Prior to arrival to ER today patient was seen at [facility] during which time it appear a chest xray was performed showed findings similar to prior study showing ground glass attenuation of the right lung with underlying chronic accentuated interstitial markings with left basilar atelectasis. Patient upon arrival to [facility] today patient was on 15L via NRB. Initial laboratory workup showed a WBC of 8.1, hemoglobin of 15.0, hematocrit of 48.0 and a platelet count of 169. Sodium 133, potassium 3.8, chloride 98, bicarb 24, BUN 18 and creatinine is 0.2.Urinalysis showed positive nitrites.Chest x-ray repeated at our facility did not show any evidence of interstitial or alveolar a irspace disease with stable parenchymal scarring noted in right upper lobe. ABG showed A pH of 7.38, pCO2 42, PO2 of 43.3 and a bicarb of 25.0 this was performed initially on 15 L via non-rebreather. Paitient. Was started on vancomycin, aztreonam and subsequently admitted.After review records it was noted the patient had tolerated Augmentin. At this point antibiotics were changed to vancomycin and Zosyn. Patient was weaned off BiPAP to high-flow nasal cannula. CT angio chest was performed which showed complete atelectasis of left lower lobe with increased soft tissue in the distal left juan ramon n bronchus extending into the bronchial treeOf the left lower lobe. Diffuse bilateral areas of opacification and pneumonitis were also noted. Pulmonary medicine was consulted for bronchoscopy evaluation. No new clinical events overnight. Per mom was at bedside stated his mental status and overall condition had been improving. Patient was awaiting bronchoscopy at the time of my eval Medications: Reviewed: Yes Vitals/I&O/Wt Last Vital Signs Temp 97.5 F L 05/24/21 11:24 Pulse 101 H 05/24/21 12:02 Resp 18 05/24/21 11:51 BP 119/68 05/24/21 11:24 Pulse Ox 95 05/24/21 11:51 05/23/21 05/24/21 05/24/21 22:59 06:59 14:59 Intake Total 300 / 350 300 / 650 155 / 155 Output Total 650 / 950 400 / 1350 Balance -350 / -600 -100 / -700 155 / 155 Weight last 48 hrs Weight 61.235 kg Physical Exam Narrative: EXAM NARRATIVE: General : Alert, Awake, chronically ill appearing HEENT : On High-flow nasal cannula CVS : RRR Chest : Course breath sounds bilaterally Abd; Soft, NT, ND - Gtube in place : Carey in place. Ext Distal contracture with 2+ edema Urinary Catheter Management^: 16: Cath Placed During This Visit: yes Reason for Continuing Indwelling Catheter: Assist healing open wound Urinary Catheter Date of Insertion: 05/23/21 Urinary Catheter Time of Insertion: 11:50 Data : 05/24/21 05:04 05/24/21 11:30 Micro: Microbiology 05/23/21 23:15 MRSA Culture - Final Nose 05/23/21 23:15 Bacterial Antigens - Final Urine,Voided 05/22/21 16:15 Urine Culture - Preliminary Urine,Clean Catch Gram Negative Rods 05/22/21 15:54 Blood Culture - Preliminary Blood NEGATIVE TO DATE 05/22/21 15:54 Blood Culture - Preliminary Blood NEGATIVE TO DATE A&P Assessment and plan (1) Acute respiratory failure with hypoxemia: Status: Acute (2) SIRS (systemic inflammatory response syndrome): Status: Acute (3) Multiple sclerosis: Status: Acute (4) Gastrostomy tube dependent: Status: Acute (5) Chronic indwelling Carey catheter: Status: Acute Acute respiratory distress with hypoxemia due to below Placed on Bipap in ER - Currenlty on HFNC Chest x-ray - no acute findings PE ruled out CTA chest PE protocol showed LLL atelectasis due to mucus plug Pulmonary consulted D/w Mom-dpoa- No invasive ventilation Duoneb q6hr scheduled NPO for bronchosocpy later today SIRS r/o Sepsis due to HCAP / UTI due to ch.indwelling carey Hx of MRSA colonization Noted on chest-ray at [facility] [place] Fever 102 - resolved. Continue vancomycin pharmacy to dose Continue zosyn 3.375g IV q8hr Follow up on blood culture UA - + nitrates - f/u on culture Sputum culture - BAL culure today Additional medical history Multiple sclerosis with severe debility Dysphagia s/p G-tube placement Hypertension Barrets, esophagus Chronic constipation Sacral decubitus ulcer POA DVT ppx - Heparin Code status - A.N.D Attestations Medical Necessity Statement*: Require further hospitalizationFor management of respiratory distress Time Spent in Patient Care: Greater than 35 minutes (>than 50% of time spent in counselling and/or direct pt care on unit) . Coding Level of Care Code Acute Bath Attendant for Chg Fwd Diagnoses Acute respiratory failure with hypoxemia J96.01 SIRS (systemic inflammatory response syndrome) R65.10 Multiple sclerosis G35 Gastrostomy tube dependent Z93.1 Chronic indwelling Carey catheter Z97.8
[2021-05-24] MEDS: lidocaine 1% INJ 20 mL XX (14:27)
--- NOTE | 2021-05-24 14:41 | P.OP_ITS ---
Operative Report Date of procedure: May 24, 2021 Procedure: Bronchoscopy with airway inspection and obtaining bronchoalveolar lavage samples and possible endobronchial biopsy Pre-Operative Diagnosis: Aspiration pneumonia Post-Operative Diagnosis: Same Indication: Aspiration pneumonia; large amount of debris beginning within the di stal LEFT main bronchus and extending into the LEFT lower lobe bronchial tree on CT chest Anesthesia: Conscious sedation propofol 100 mg and ketamine 10 as per anesthesia Pre-procedure Evaluation: Patient was evaluated clinically and ancillary testing reviewed. The risk of having active MTB infection is very low in my clinical judgement. ASA: 4 Malampati score: 2 Consent: Consents were obtained from patient/MPOA and placed in the chart Procedure Details: Time out was performed by the procedure team and nursing staff. The bronchoscope was introduced oral airway and bronchoscopic airway exam was performed to evaluate the visible tracheobronchial tree to the segmental level. Summary of Significant Findings: -Bronchoscope passed through oral airway and glottic opening visualized with mobile vocal cords. 4% lidocaine 4 mL instilled on vocal cords.. The scope was passed further to visualize trachea which was noted to be normal. Main nicholas visualized which was sharp and normal. There were copious secretions coming out through the right main bronchus which were suctioned right away. 1% lidocaine 2 mL were instilled in the right main bronchus and 6 mL of 1% lidocaine instilled in left main bronchus. Then the scope was passed through the right bronchial tree was assessed to include the right mainstem bronchus, RBI, and RUL/RML/RLL bronchi to the segmental and subsegmental levels. No active bleeding noted. Mucosa appeared normal. Copious clear secretions noted from right middle lobe and lower lobe which were suctioned right away Then the scope was left bronchial tree was assessed to include the left mainstem bronchus, ARACELI, Lingula, and LLL bronchi to the segmental and subsegmental level. No active bleeding noted. Mucosa appeared normal. Copious clear secretions noted from right middle lobe and lower lobe which were suctioned right away. Left lower lobe subsegments were wedged and obtained about 30 cc of BAL. After retrieving scope bleeding noted from the mucosal abrasion due to bronchoscope manipulation. 5 mL of cold saline given and made sure there is no active bleeding. The bronchoscope was then removed and the procedure terminated. Estimated Blood Loss: 2 to 5 mL Specimens: Bronchoalveolar lavage was taken from left lower lobe and sent for microbiology cultures, fungal cultures, PCP and cytology Complications:None; patient tolerated the procedure well. Disposition: Patient remains ill and will be transferred to medical floor Patient tolerated the procedure well. Patient's mother was updated about the pr ocedure and findings. Rick Vicente MD Pulmonary critical Care Medicine [facility] Pre-op Diagnosis: aspiration pneumonia Associated Problem List Diagnoses (1) Recurrent aspiration pneumonia: (2) Left lower lobe pulmonary infiltrate:
[2021-05-24 16:27] LABS: Glucose Point of Care 110 mg/dL (70-110)
[2021-05-24] MEDS: pantoprazole 40 mg SDV IVP (17:39)
[2021-05-24] MEDS: DALFAMPRIDINE 10 MG 10 EACH PEG-TUBE (17:44)
[2021-05-24] MEDS: acetaminophen 325 mg Tablet 650 MG PO (20:12)
[2021-05-25] VITALS (12 sets, daily range): BP systolic 122–135; BP diastolic 75–78; PULSE 82–100; RESP 16–20; TEMP 36.8–37.2; O2SAT 94–97
[2021-05-25] MEDS: sodium chloride 3.5% neb 4 mL Neb INHALATION ×3 (00:50→09:00)
[2021-05-25] MEDS: vancomycin 1,000 MG in sodium chloride 0.9% 250 ML 250 MG IV (03:48)
[2021-05-25] MEDS: morphine 4 mg/mL SDV 1 mL 2 MG IVP (03:57)
[2021-05-25] MEDS: ipratropium-albuterol 3 mL Neb INHALATION ×2 (04:19→08:59)
[2021-05-25] MEDS: acetylcysteine 200 mg/mL SDV 4 mL 100 MG INHALATION ×2 (04:19→09:00)
[2021-05-25] MEDS: piperacillin-tazobactam 3.375 GM in sodium chloride 0.9% (plus) 50 ML IV (05:10)
[2021-05-25] MEDS: heparin 5,000 unit/mL INJ 1 mL 5000 UNIT SUBCUT (05:12)
[2021-05-25 05:52] LABS: Basophils % 0.3 %; Eosinophils # 0.1 10^3/uL (0.0-0.8); Lymphocytes % 16.2 %; Mean Corpuscular HGB Conc 33.3 g/dL (30.0-36.0); Mean Corpuscular Hemoglobin 28.6 pg (28.0-34.0); Mean Corpuscular Volume 85.7 fL (80-94); Mean Platelet Volume 11.7 fL (7.4-10.4); Monocytes # 0.6 10^3/uL (0.2-0.9); Monocytes % 10.5 %; Neutrophils # 4.36 10^3/uL (1.8-7.7); Neutrophils % 71.2 %; Nucleated Red Blood Cells % 0 %; Platelet Count 166 10^3/cmm (130-400); Red Blood Count 3.85 10^6/uL (4.1-5.3); Red Cell Distribution Width 15.3 % (12.1-15.1); White Blood Count 6.1 10^3/uL (4.0-10.0)
[2021-05-25 06:14] LABS: Alanine Aminotransferase 8 U/L (0-41); Albumin Level 3.3 g/dL (3.5-5.2); Alkaline Phosphatase 67 IU/L (40-130); Anion Gap 12.5 (5-19); Aspartate Amino Transferase 7 U/L (0-40); Blood Urea Nitrogen 9 mg/dL (6-20); Calcium 7.8 mg/dL (8.5-10.5); Carbon Dioxide 23 mmol/L (22-29); Chloride 109 mmol/L (98-107); Globulin 1.8 g/dL (1.3-4.6); Glucose 111 mg/dL (65-115); Osmolality Calculated 291 mOsm/kg (285-295); Potassium 3.5 mmol/L (3.5-5.1); Sodium 141 mmol/L (136-145); Total Bilirubin 0.7 mg/dL (0.15-1.2); Total Protein 5.1 g/dL (6.6-8.7)
[2021-05-25 06:21] LABS: Procalcitonin 0.82 ng/mL (0-0.5)
[2021-05-25] MEDS: baclofen 10 mg Tablet 15 MG PEG-TUBE (08:30)
[2021-05-25] MEDS: DALFAMPRIDINE 10 MG 10 EACH PEG-TUBE (08:32)
--- NOTE | 2021-05-25 09:06 | PC.SOCIAL ---
IMM Update Pg.2 of IMM updated and reviewed with patient's mom at bedside, verbalized understanding. Copy provided.
[2021-05-25] MEDS: acetaminophen 325 mg Tablet 650 MG PO (10:18)
--- NOTE | 2021-05-25 11:20 | P.DS_ITS ---
Discharge Providers Date of Admission: 05/22/21 17:18 Date of Discharge: May 25, 2021 Attending Provider at Admission: Jarrell Thomas Attending Provider at Discharge: Jarrell Thomas Diagnoses at Discharge Discharge Diagnosis (1) Recurrent aspiration pneumonia: Status: Acute (2) Left lower lobe pulmonary infiltrate: Status: Acute Reason for Visit Reason for Visit: SOB Hospital Course Hospital Course 56-year-old male with a past medical history significant for hypertension, b arretts esophagus, chronic constipation, advanced multiple sclerosis with significant debility, bed bound, chronic sacral decubitus ulcer, dysphagia status post g- tube, severe chronic bladder outlet obstruction with indwelling Wei, and recurrent hospitalizations for respiratory failure due to aspiration pneumonia was now presenting again to the hospital with respiratory distress. Patient was most recently discharged from [facility] on 04/13 after treatment for aspiration pneumonia. On 04/29 patient was again seen in ER during which time a CTA chest which showed persistent groundglass opacity with central cystic changes within the right upper lobe. Persistent perihilar mucous plugging, consolidation and bibasilar groundglass opacities. Patient was discharge back to SNF. Prior to arrival to ER today patient was seen at [facility] during which time it appear a chest xray was performed showed findings similar to prior study showing ground glass attenuation of the right lung with underlying chronic accentuated interstitial markings with left basilar atelectasis. Patient upon arrival to [facility] patient was on 15L via NRB. Initial laboratory workup showed a WBC of 8.1, hemoglobin of 15.0, hematocrit of 48.0 and a platelet count of 169. Sodium 133, potassium 3.8, chloride 98, bicarb 24, BUN 18 and creatinine is 0.2.Urinalysis showed positive nitrites.Chest x-ray repeated at our facility did not show any evidence of interstitial or alveolar airspace disease with stable parenchymal scarring noted in right upper lobe. ABG showed A pH of 7.38, pCO2 42, PO2 of 43.3 and a bicarb of 25.0 this was performed initially on 15 L via non-rebreather. Was started on vancomycin, aztreonam and subsequently admitted.After review records it was noted the patient had tolerated Augmentin. At this point antibiotics were changed to vancomycin and Zosyn. Patient was weaned off BiPAP to high-flow nasal cannula. CT angio chest was performed which showed complete atelectasis of left lower lobe with increased soft tissue in the distal left main bronchus extending into the bronchial tree of the left lower lobe. Diffuse bilateral areas of opacification and pneumonitis were also noted. Pulmonary medicine was consulted. Patient was taken for bronchoscopy on 05/24. Bronchoscopy report-Summary of Significant Findings -Bronchoscope passed through oral airway and glottic opening visualized with mobile vocal cords. 4% lidocaine 4 mL instilled on vocal cords.. The scope was passed further to visualize trachea which was noted to be normal. Main nicholas visualized which was sharp and normal. There were copious secretions coming out through the right main bronchus which were suctioned right away. 1% lidocaine 2 mL were instilled in the right main bronchus and 6 mL of 1% lidocaine instilled in left main bronchus. Then the scope was passed through the right bronchial tree was assessed to include the right mainstem bronchus, RBI, and RUL/RML/RLL bronchi to the segmental and subsegmental levels. No active bleeding noted. Mucosa appeared normal. Copious clear secretions noted from right middle lobe and lower lobe which were suctioned right away Then the scope was left bronchial tree was assessed to include the left mainstem bronchus, ARACELI, Lingula, and LLL bronchi to the segmental and subsegmental level. No active bleeding noted. Mucosa appeared normal. Copious clear secretions noted from right middle lobe and lower lobe which were suctioned right away. Left lower lobe subsegments were wedged and obtained about 30 cc of BAL. After retrieving scope bleeding noted from the mucosal abrasion due to bronchoscope manipulation. 5 mL of cold saline given and made sure there is no active bleeding. Patient did well postprocedure. Was weaned off oxygen. Mental status had returned to baseline. Was initiated on tube feedings. Pulmonary medicine recommended initiation of Mucomyst twice daily, hypertonic saline twice daily followed by DuoNeb treatments. Additionally recommended chest physiotherapy 2 to 3 times per day. Patient was continued on an additional 5 day course of Augmentin. Vancomycin was discontinued. MRSA screen positive which is expected with prior MRSA colonization. Patient was afebrile Discharged in stable condition with close outpatient follow up with pulmonary medicine. Physical Exam Narrative: EXAM NARRATIVE: General : Alert, Awake, chronically ill appearing HEENT : On High-flow nasal cannula CVS : RRR Chest : Course breath sounds bilaterally Abd; Soft, NT, ND - Gtube in place : Wei in place. Ext Distal contracture with 2+ edema Urinary Catheter Management^: 16: Cath Placed During This Visit: yes Reason for Continuing Indwelling Catheter: Assist healing open wound Urinary Catheter Date of Insertion: 05/23/21 Urinary Catheter Time of Insertion: 11:50 Discharge Data Data Completed and Pending: Completed Studies During Hospitalization Category Date Time Status CT angio chest PE protcl [id number] Rout ine Cat Scan 05/23/21 08:00 Completed XR chest 1V candy ble [id number] Routine Exams 05/24/21 05:00 Completed XR chest 1V candy ble [id number] Stat Exams 05/22/21 15:22 Completed Pending at discharge Category Date Time Status Blood Culture Sta t Lab 05/22/21 15:54 Results Bronchoalv Lavage Culture & GS Rout ine Lab 05/24/21 14:30 Results Fungal Culture no t HR/SK/BL Routine Lab 05/24/21 14:49 Uncollected Urine Culture Rou anneliese Lab 05/23/21 23:15 Results Cytology [PTH] Ro utine Pth 05/24/21 14:42 Ordered Labs from last 24 hours 05/25/21 05/25/21 05/25/21 04:56 04:56 04:56 WBC 6.1 RBC 3.85 L Hgb 11.0 L Hct 33.0 L MCV 85.7 MCH 28.6 MCHC 33.3 RDW 15.3 H Plt Count 166 MPV 11.7 H Neut % (Auto) 71.2 Lymph % (Auto) 16.2 [place] % (Auto) 10.5 Eos % (Auto) 1.0 Baso % (Auto) 0.3 Neut # (Auto) 4.36 Lymph # (Auto) 1.0 [place] # (Auto) 0.6 Eos # (Auto) 0.1 Baso # (Auto) 0.0 Nucleated RBC % (a uto) 0 Nucleated RBCs # 0.0 Sodium 141 Potassium 3.5 Chloride 109 H Carbon Dioxide 23 Anion Gap 12.5 BUN 9 Creatinine 0.1 L GFR Calculation 1098.0 H Glucose 111 POC Glucose Calculated Osmolal ity 291 Calcium 7.8 L Total Bilirubin 0.7 AST 7 ALT 8 Alkaline Phosphata se 67 Total Protein 5.1 L Albumin 3.3 L Globulin 1.8 Procalcitonin 0.82 H Vancomycin Trough 05/24/21 05/24/21 05/24/21 16:23 11:30 11:30 WBC RBC Hgb Hct MCV MCH MCHC RDW Plt Count MPV Neut % (Auto) Lymph % (Auto) [place] % (Auto) Eos % (Auto) Baso % (Auto) Neut # (Auto) Lymph # (Auto) [place] # (Auto) Eos # (Auto) Baso # (Auto) Nucleated RBC % (a uto) Nucleated RBCs # Sodium Potassium 3.9 Chloride Carbon Dioxide Anion Gap BUN Creatinine GFR Calculation Glucose POC Glucose 110 Calculated Osmolal ity Calcium Total Bilirubin AST ALT Alkaline Phosphata se Total Protein Albumin Globulin Procalcitonin Vancomycin Trough 15.8 H Vitals: Last Vital Signs Temp 98.4 F 05/25/21 08:00 Pulse 99 05/25/21 09:22 Resp 20 H 05/25/21 09:00 BP 130/75 05/25/21 08:00 Pulse Ox 94 05/25/21 09:00 Discharge Plan Discharge Patient Disposition: Xfer SNF Condition: Stable Prescriptions: New acetylcysteine 200 mg/mL (20 %) Solution 100 mg inhalation BID Qty: 30 RF: 0 Hyper-Brennan 3.5 % Solution For Nebulization 4 ml inhalation BID Qty: 240 RF: 0 Augmentin 875-125 mg tablet 1 tab feeding tube BID Qty: 10 RF: 0 Continued multivitamin Tablet 1 tab feeding tube DAILY@08 RF: 0 albuterol sulfate 2.5 mg /3 mL (0.083 %) Solution For Nebulization 2.5 mg INHALATION Q4H PRN (Reason: Shortness Of Breath) RF: 0 cetirizine 10 mg Tablet 10 mg feeding tube DAILY@08 RF: 0 atenolol 100 mg Tablet 100 mg feeding tube DAILY RF: 0 hydrocodone-acetaminophen 10-325 mg Tablet 1 tab feeding tube Q4H PRN (Reason: Pain) RF: 0 calcium carbonate 500 mg calcium (1,250 mg) Tablet 500 mg feeding tube DAILY PRN (Reason: UNKNOWN) RF: 0 baclofen 10 mg Tablet 15 mg feeding tube QID RF: 0 gabapentin 300 mg Capsule 300 mg feeding tube TID@08,12,20 RF: 0 sertraline 50 mg Tablet 50 mg feeding tube DAILY@08 RF: 0 dalfampridine [Ampyra] 10 mg Tablet Extended Release 12 Hr See Rx Instructions .ROUTE .COMPLEX RF: 0 Aubagio 14 mg Tablet 14 mg feeding tube DAILY@08 RF: 0 Tylenol 325 mg Tablet 650 mg feeding tube Q6H PRN (Reason: Pain) RF: 0 Senna-S 8.6-50 mg Tablet See Rx Instructions .ROUTE .COMPLEX RF: 0 loperamide 2 mg Tablet 2 mg feeding tube Q4H PRN (Reason: Diarrhea) RF: 0 Milk of Magnesia 400 mg/5 mL Suspension 30 ml feeding tube DAILY PRN (Reason: Constipation) RF: 0 bisacodyl 10 mg Suppository 10 mg [place] DAILY PRN (Reason: Constipation) RF: 0 Benadryl 25 mg Capsule 25 mg feeding tube Q6H PRN (Reason: Allergy Symptoms) RF: 0 Enema Disposable 19-7 gram/118 mL Enema 118 ml [place] DAILY PRN (Reason: Constipation) RF: 0 Acidophilus-Pectin 75 million cell -100 mg Capsule See Rx Instructions .ROUTE .COMPLEX RF: 0 Prostat Liquid 30 ml feeding tube BID RF: 0 ondansetron HCl 4 mg Tablet 4 mg feeding tube Q8H PRN (Reason: Nausea And Vomiting) RF: 0 potassium chloride 20 mEq/15 mL liquid 20 meq feeding tube BID@08,20 RF: 0 Lubricant Eye (PG-PEG 400) 0.4-0.3 % Drops 2 drp ophthalmic (eye) QID PRN (Reason: UNKNOWN) RF: 0 MediHoney (honey) 80 % Gel See Rx Instructions .ROUTE .COMPLEX RF: 0 Discharge Orders: Discharge Order (Routine); Ordered 05/25/21 Ordered By: Jarrell Thomas Referrals: DatarRick MD [Physician] - 2 weeks Discharge Diet: Resume prior tube feeds Discharge Activity: Increase activity as tolerated Activity Restrictions/Additional Instructions: Chest Physical Therapy two to three times per day Return to ER if any recurrence of respiratory distress,or fever Discharge Attestations Time Spent in Discharge Care*: greater than 30 min Specific Discharge Activities: educating patient, educating and/or supporting family/caregiver, discussing with pcp/other providers, discussing with manager case/social workers/dc planners, documenting/other paperwork and evaluating patient/reviewing data Status at Discharge: Cognitive status at discharge: cognitively intact , Be havioral status at discharge: cooperative , Functional status at discharge: bed bound Overall status at discharge: patient is back to baseline Quality Metrics Clinical Quality Measures During this hospital stay, did patient experience: None Coding Level of Care Code Acute Chg FW DC note Diagnoses Recurrent aspiration pneumonia J69.0 Left lower lobe pulmonary infiltrate R91.8
--- NOTE | 2021-05-25 14:05 | P.PN_ITS ---
Subjective Subjective: Interval history: - patient seen at bedside today morning - saturating 96-97 % on room air ; no complaints - labs and imaging reviewed and pertinent findings incorporated in the assessment and plan - Medications: Reviewed: Yes Vitals/I&O/Wt Last Vital Signs Temp 98.2 F 05/25/21 11:23 Pulse 90 05/25/21 11:23 Resp 17 05/25/21 11:23 BP 135/76 05/25/21 11:23 Pulse Ox 96 05/25/21 11:23 05/24/21 05/25/21 05/25/21 22:59 06:59 14:59 Intake Total 1320 / 1475 1340 / 2815 570 / 570 Output Total 650 / 650 400 / 1050 Balance 670 / 825 940 / 1765 570 / 570 Physical Exam Narrative: EXAM NARRATIVE: General: alert, NAD, opens eyes and communicated occasioanlly HEENT: conj clear, EOMI, PERRL, mmm, Neck: supple, no meningismus Heme: no cervical LAP Pulmonary:improved breath sounds on left lower lobe Abdomen: soft, nt, nd, no r/g, bs+ Extremities: pulses +, no edema, no c/c : no CVA tenderness Skin: intact, no rash MSK: no back or neck pain Neurologic: cannot move his limbs Urinary Catheter Management^: 16: Cath Placed During This Visit: yes Reason for Continuing Indwelling Catheter: Assist healing open wound Urinary Catheter Date of Insertion: 05/23/21 Urinary Catheter Time of Insertion: 11:50 Data : 05/25/21 04:56 05/25/21 04:56 Other Labs: Laboratory Results WBC 6.1 10^3/uL (4.0-10.0) 05/25/21 04:56 RBC 3.85 10^6/uL (4.1-5.3) L 05/25/21 04:56 Hgb 11.0 g/dL (11.7-16.6) L 05/25/21 04:56 Hct 33.0 % (42.0-52.0) L 05/25/21 04:56 MCV 85.7 fL (80-94) 05/25/21 04:56 MCH 28.6 pg (28.0-34.0) 05/25/21 04:56 MCHC 33.3 g/dL (30.0-36.0) 05/25/21 04:56 RDW 15.3 % (12.1-15.1) H 05/25/21 04:56 Plt Count 166 10^3/cmm (130-400) 05/25/21 04:56 MPV 11.7 fL (7.4-10.4) H 05/25/21 04:56 Neut % (Auto) 71.2 % 05/25/21 04:56 Lymph % (Auto) 16.2 % 05/25/21 04:56 [place] % (Auto) 10.5 % 05/25/21 04:56 Eos % (Auto) 1.0 % 05/25/21 04:56 Baso % (Auto) 0.3 % 05/25/21 04:56 Neut # (Auto) 4.36 10^3/uL (1.8-7.7) 05/25/21 04:56 Lymph # (Auto) 1.0 10^3/uL (0.8-4.8) 05/25/21 04:56 [place] # (Auto) 0.6 10^3/uL (0.2-0.9) 05/25/21 04:56 Eos # (Auto) 0.1 10^3/uL (0.0-0.8) 05/25/21 04:56 Baso # (Auto) 0.0 10^3/uL (0.0-0.1) 05/25/21 04:56 Nucleated RBC % (auto) 0 % 05/25/21 04:56 Total Counted 100 (0-100) 05/23/21 04:55 Atypical Lymphs % 0.0 % (0-5) 05/23/21 04:55 Absolute Neutrophils 5.7 10^3/cmm (1.4-6.5) 05/23/21 04:55 Segmented Neutrophils 51 % 05/23/21 04:55 Abs Segm Neuts (Man) 3.5 10/cmm (1.6-7.1) 05/23/21 04:55 Band Neutrophils 31.0 % 05/23/21 04:55 Abs Band Neuts (Man) 2.1 10^3/cmm (0.0-1.2) H 05/23/21 04:55 Absolute Lymphocytes 0.4 10^3/cmm (1.2-3.4) L 05/23/21 04:55 Lymphocytes (Manual) 6 % 05/23/21 04:55 Monocytes (Manual) 12.0 % 05/23/21 04:55 Absolute Monocytes 0.8 10^3/cmm (0.1-0.6) H 05/23/21 04:55 Eosinophils (Manual) 0 % 05/23/21 04:55 Absolute Eosinophils 0.0 10^3/cmm (0.0-0.7) 05/23/21 04:55 Basophils (Manual) 0.0 % 05/23/21 04:55 Absolute Basophils 0.0 10^3/cmm (0.0-0.2) 05/23/21 04:55 Nucleated RBCs # 0.0 /100WBC 05/25/21 04:56 Platelet Estimate Normal (Normal) 05/23/21 04:55 Specimen Type Arterial 05/22/21 15:40 Sample Site Radial, left 05/22/21 15:40 ABG pH 7.38 (7.35-7.45) 05/22/21 15:40 ABG pCO2 42.0 mmHg (35-45) 05/22/21 15:40 ABG pO2 43.3 mmHg (80.0-100.0) L 05/22/21 15:40 ABG HCO3 25.0 mmol/L (22-26) 05/22/21 15:40 ABG O2 Saturation 81.7 05/22/21 15:40 ABG Base Excess -0.3 mmol/L (-2.0-2.0) 05/22/21 15:40 Carl Test Pos 05/22/21 15:40 A-a O2 Gradient 80.4 mmHg (5-10) H 05/22/21 15:40 Hematocrit 47.5 % (42-52) 05/22/21 15:40 Hgb O2 Saturation 79.6 % (95-100) L 05/22/21 15:40 Carboxyhemoglobin 1.9 %THgb (0.4-20.1) 05/22/21 15:40 Methemoglobin 0.7 % (0.4-1.5) 05/22/21 15:40 Total Hemoglobin 15.5 g/dL (14-18) 05/22/21 15:40 Sodium 138.0 mmol/L (131-143) 05/22/21 15:40 Potassium 3.7 mmol/L (3.5-5.0) 05/22/21 15:40 Glucose 165.0 mg/dL (70-115) H 05/22/21 15:40 Ionized Calcium 1.2 mmol/L (1.1-1.4) 05/22/21 15:40 O2 Delivery Device Nrb 05/22/21 15:40 O2 Liters/Min 15.0 % 05/22/21 15:40 FiO2 100.0 % 05/22/21 15:40 Carding Machine Operator ID [place] 05/22/21 15:40 Sodium 141 mmol/L (136-145) 05/25/21 04:56 Potassium 3.5 mmol/L (3.5-5.1) 05/25/21 04:56 Chloride 109 mmol/L (98-107) H 05/25/21 04:56 Carbon Dioxide 23 mmol/L (22-29) 05/25/21 04:56 Anion Gap 12.5 (5-19) 05/25/21 04:56 BUN 9 mg/dL (6-20) 05/25/21 04:56 Creatinine 0.1 mg/dL (0.7-1.2) L 05/25/21 04:56 GFR Calculation 1098.0 mL/min (90-130) H 05/25/21 04:56 Glucose 111 mg/dL (65-115) 05/25/21 04:56 POC Glucose 110 mg/dL (70-110) 05/24/21 16:23 Calculated Osmolality 291 mOsm/kg (285-295) 05/25/21 04:56 Lactic Acid 1.5 mmol/L (0.5-2.2) 05/22/21 16:17 Calcium 7.8 mg/dL (8.5-10.5) L 05/25/21 04:56 Total Bilirubin 0.7 mg/dL (0.15-1.2) 05/25/21 04:56 AST 7 U/L (0-40) 05/25/21 04:56 ALT 8 U/L (0-41) 05/25/21 04:56 Alkaline Phosphatase 67 IU/L (40-130) 05/25/21 04:56 Creatine Kinase 8 U/L (39-308) L 05/22/21 16:17 Troponin T Baseline 12 ng/L (0-15) 05/22/21 16:17 Troponin T 120 Minute 12.59 ng/L (0-15) 05/22/21 18:17 Delta Troponin T 0.59 ABS# (0-10) 05/22/21 18:17 Troponin T Hi Sens 6Hr 9.89 ng/L (0-15) 05/22/21 22:19 Troponin T Hi Sens 6Hr Delta -2.11 ng/L (0-12) L 05/22/21 22:19 Total Protein 5.1 g/dL (6.6-8.7) L 05/25/21 04:56 Albumin 3.3 g/dL (3.5-5.2) L 05/25/21 04:56 Globulin 1.8 g/dL (1.3-4.6) 05/25/21 04:56 Procalcitonin 0.82 ng/mL (0-0.5) H 05/25/21 04:56 Urine Color Yellow (Yellow) 05/22/21 16:15 Urine Appearance Clear (CLEAR) 05/22/21 16:15 Urine pH 7 (5-7) 05/22/21 16:15 Ur Specific [place] 1.010 (1.005-1.030) 05/22/21 16:15 Urine Protein 1+ (Negative) H 05/22/21 16:15 Urine Glucose (UA) Norm (Normal) 05/22/21 16:15 Urine Ketones 1+ (Negative) H 05/22/21 16:15 Urine Blood 2+ (Negative) H 05/22/21 16:15 Urine Nitrate Positive (Negative) H 05/22/21 16:15 Urine Bilirubin Neg (Negative) 05/22/21 16:15 Urine Urobilinogen Norm mg/dL (Negative) 05/22/21 16:15 Ur Leukocyte Esterase Negative (Negative) 05/22/21 16:15 Urine RBC 0-4 /hpf (0-2) H 05/22/21 16:15 Urine WBC 10-15 /hpf (0-5) H 05/22/21 16:15 Ur Squamous Epith Cells 0-4 /hpf (0-5) H 05/22/21 16:15 Amorphous Sediment Not Reportable 05/22/21 16:15 Urine Bacteria 3+ /hpf (NONE) H 05/22/21 16:15 Vancomycin Trough 15.8 ug/mL (10-15) H 05/24/21 11:30 Impressions Chest CTA 05/23/21 08:00 IMPRESSION: 1. No pulmonary embolism. 2. Complete atelectasis LEFT lower lobe. 3. Increased soft tissue in the distal LEFT main bronchus and extending into the bronchial tree of the LEFT lower lobe. Underlying mass in the proximal LEFT lower lobe bronchus is not excluded. 4. Diffuse bilateral areas of opacification and pneumonitis. 5. Mild LEFT heart enlargement. Notified Jarrell Thomas MD at 05/23/2021 11:36 AM. Chest X-Ray 05/24/21 05:00 Impression: 1. Increasing atelectasis and/or minimal pneumonia over surface of both diaphragms and in the right middle lobe. 2. Atherosclerosis. Micro: Microbiology 05/24/21 14:30 Gram Stain - Final Lung Left Lower Lobe Bronchoalveolar Lavage Culture - Preliminary 05/23/21 23:15 Urine Culture - Preliminary Urine Catheterized 05/22/21 16:15 Urine Culture - Final Urine,Clean Catch Citrobacter murliniae 05/23/21 23:15 MRSA Culture - Final Nose A&P Assessment and plan (1) Acute respiratory failure with hypoxemia: Status: Acute (2) Recurrent aspiration pneumonia: Status: Acute (3) Gastrostomy tube dependent: Status: Acute (4) Multiple sclerosis: Status: Acute (5) Sepsis: Status: Acute Qualifiers: Sepsis acute organ dysfunction status: with acute organ dysfunction Sepsis type: sepsis due to unspecified organism Severe sepsis acute organ dysfunction type: encephalopathy Severe sepsis shock status: without septic shock Qualified Code(s): A41.9 - Sepsis, unspecified organism; R65.20 - Severe sepsis without septic shock; G93.40 - Encephalopathy, unspecified (6) DNR (do not resuscitate): Status: Acute (7) AMS (altered mental status): Status: Acute (8) Hypokalemia: Status: Acute #AMS likely secondary to urosepsis and aspiration pneumonia-back to baseline #Acute hypoxic respiratory failure due to pneumonia - most likely aspiration # CT evidence left lower opacity - most likely debris vs underlying mass and post obstructive pneumonia; No endobronchial obstruction noted on Bronchoscopy # Given h/o of multiple sclerosis and bed ridden for last 8 years and dysphagia s/p PEG tube - most likely aspiration # recent admission to outside hospital last month march 2021 due to aspiration pneumonia #Urine culture positive for Citrobacter mutliniae sensitive only to imipenam, gentamycin , zosyn, and nitrofurontoin #Hypokalemia 2.7-supplemented - currently on room air saturating 97% -Continue Mucomyst and hypertonic saline nebulizations twice daily with chest physiotherapy 3 times a day and suctioning - On admission temp 100.9-since then afebrile, normal wbc count, elevated procalcitonin - on vancomycin and zosyn (day 4) ; pharmacy consult to dose vancomycin -MRSA screen positive possible colonization, contact isolation and can change vancomycin to Augmentin - switch Zosyn to imipenem and complete 7 days course for UTI - Ct chest 05/22/21 showed complete atelectasis LEFT lower lobe. Increased soft tissue in the distal LEFT main bronchus and extending into the bronchial tree of the LEFT lower lobe. Underlying mass in the proximal LEFT lower lobe bronchus is not excluded. -S/p bronchsocpy 05/24/2021 for airway inspection and obtaining BAL for cultures and cytology a-results pending -Electrolytes within normal limits -Patient is clear for discharge pulmonary standpoint, needs IV antibiotics for UTI, and requires Mucomyst and hypertonic saline nebulizations twice daily and chest physiotherapy at least 2-3 times a day and daily suctioning of airways, small feeds through PEG tube Medical condition, management plan everything explained in detail to patient and his mother. They both seem to understand the plan and patient's mother verbalized understanding and agreed with the plan. Recommendations conveyed to hospitalist, RN covering the patient Attestations Medical Necessity Statement*: Clinically improving and plan for discharge from pulmonary standpoint Time Spent in Patient Care: Greater than 35 minutes (>than 50% of time spent in counselling and/or direct pt care on unit) . 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 Despatch Operator for Macie Klein Patient Type Established History Comprehensive Exam Comprehensive Medical Decision Making Moderate Complexity Diagnoses Acute respiratory failure with hypoxemia J96.01 Recurrent aspiration pneumonia J69.0 Gastrostomy tube dependent Z93.1 Multiple sclerosis G35 Sepsis A41.9; R65.20; G93.40 Sepsis acute organ dysfunction status: with acute organ dysfunction Sepsis type: sepsis due to unspecified organism Severe sepsis acute organ dysfunction type: encephalopathy Severe sepsis shock status: without septic shock DNR (do not resuscitate) Z66 AMS (altered mental status) R41.82 Hypokalemia E87.6 Time Spent (min) 35
--- NOTE | 2021-05-25 15:04 | PC.SOCIAL ---
Dr Thomas called and indicates that he and Dr Vicente have noticed the urine culture returned since patient was discharged and Dr Vicnete feels patient should receive IV abx Meropenem 500mg BID for 3 days. Called and spoke to Kaci and updated her that we apologize and asked if can have IV placed and this medication given. It will tomorrow before they can get it. Thought initially was once daily but clarified with Dr Thomas and asked him to enter the order and he indicates it needs to be twice daily, Sent order and culture to ATTN: Kaci nurse at [facility] per her request. Faxed to [phone] with confirmation that information was transmitted successfully.
== END 2021-05-25 13:45 | disposition skilled nursing facility (03) | DRG 871 ==
LOC: ER 18:04 → MEDSURG 18:18
PROVIDERS: Anesthesiology; Internal Medicine Pulmonary Disease; Admitting Provider Hospitalist; Emergency Provider Family Medicine; Visit Provider Hospitalist
PROC: 0BJ08ZZ Inspection of Tracheobronchial Tree, Via Natural or Artificial Opening Endoscopic (ICD-10-PCS; CPT 31622; principal; 2021-05-24 13:30)
DX: A41.9 Sepsis, unspecified organism (principal); J96.21 Acute and chronic respiratory failure with hypoxia; J69.0 Pneumonitis due to inhalation of food and vomit; J18.9 Pneumonia, unspecified organism; L89.153 Pressure ulcer of sacral region, stage 3; G93.41 Metabolic encephalopathy; J44.0 Chronic obstructive pulmonary disease with (acute) lower respiratory infection; N39.0 Urinary tract infection, site not specified; G35 Multiple sclerosis; I10 Essential (primary) hypertension; F32.9 Major depressive disorder, single episode, unspecified; N32.0 Bladder-neck obstruction; K22.70 Barrett's esophagus without dysplasia; K59.09 Other constipation; R13.10 Dysphagia, unspecified; L89.152 Pressure ulcer of sacral region, stage 2; E87.6 Hypokalemia; Z74.01 Bed confinement status; Z93.1 Gastrostomy status; Z86.14 Personal history of Methicillin resistant Staphylococcus aureus infection; Z96.0 Presence of urogenital implants; Z66 Do not resuscitate
CPT/HCPCS: 31624; 36415; 36416; 36600; 51702; 71045; 71275; 80051; 80053; 80202; 81001; 82330; 82550; 82805; 82962; 83605; 84132; 84145; 84484; 85007; 85025; 86403; 87040; 87070; 87077; 87086; 87186; 87205; 87641; 88112; 88305; 93005; 94640; 94660; 94669; 96365; 96367; 96372; 96375; 99285; C9113; J1644; J2270; J2405; J2543; J2704; J3370; J3480; J3490; J7030; J7040; J7050; J7608; Q9967; S0030

== ENCOUNTER 2021-09-28 09:37 | Inpatient (IN) | payer MEDICARE, MEDICAID, SELFPAY ==
[2021-09-28] VITALS (10 sets, daily range): BP systolic 126–181; BP diastolic 72–100; PULSE 61–86; RESP 16–23; TEMP 36.2–37.1; O2SAT 91–98; BMI 24.7; BMI 24.4
--- NOTE | 2021-09-28 10:02 | XR_ITS ---
WS: [id number] PORTABLE CHEST HISTORY: SOB COMPARISON: 05/24/2021 Resolved opacification at the LEFT lung base since the prior study. Minimal linear scarring in the ce ntral RIGHT lung. No fluid overload. No pleural effusion or pneumothorax. Cardiac size: Mildly enlarged cardiac silhouette. Mediastinum/Aorta: Mild atherosclerosis aorta. Severe diffuse osteopenia. XR/XR chest 1V portable [id number] IMPRESSION: 1. No acute pneumonia. 2. Results pneumonia LEFT lung base as compared to 05/24/2021. 3. Mild atherosclerosis aorta.
--- NOTE | 2021-09-28 10:03 | ECG_ITS ---
[facility] Test Date: 2021-09-28 Pat Name: Jeancarlos Cota Department: Room: Gender: Male Neurology Technologist: : 1965 Requested By: Peri Duke Order Number: [id number] Drake MD: Soumya Brewer M.D. Measurements Intervals [place] Rate: 80 P: 56 ND: 203 QRS: -51 QRSD: 90 T: 66 QT: 370 QTc: 427 Interpretive Statements SINUS RHYTHM POSSIBLE LEFT ATRIAL ENLARGEMENT [-0.1mV P-WAVE IN V1/V2] POSSIBLE RIGHT VENTRICULAR CONDUCTION DELAY [RSR (QR) IN V1/V2] LEFT ANTERIOR FASCICULAR BLOCK [QRS AXIS <= -45, QR IN I, RS IN II] Compared to ECG 05/22/2021 17:41:50 No significant changes Electronically Signed On 09-29-2021 8:53:20 CDT by Soumya Brewer M.D. [email or web address]
--- NOTE | 2021-09-28 10:10 | ED_ITS ---
Documented by User: QUIANA Salinas 09/28/21 11:02 HPI - SOB/Dyspnea General: Chief Complaint: Shortness of Breath/Dyspnea Stated Complaint: MS, PNEUMONIA, NG TUBE, LOW O2 SAT Time Seen by Provider: 09/28/21 10:03 Source: family and EMS Mode of arrival: EMS Limitations: no limitations History of Present Illness: HPI Narrative: Patient is a 56 year old male with past medical history of progressive multiple sclerosis, requires PEG tube for feedings, hypertension, history of aspiration pneumonia who arrives to ED today from his care facility for concerns of aspiration pneumonia. Report from RN states they were flushing patient's PEG tube when they believe he aspirated. He is requiring 5L O2 at this time and satting at 92%. MD elicited complaint: shortness of breath Pertinent past history: other (MS, PEG tube, aspiration pneumonia ) PFSH ED PFSH: Medical History Acute and chronic respiratory failure with hypoxia Aspiration pneumonia Depression DNR (do not resuscitate) Hypertension Multiple sclerosis shelter resident Surgical History H/O right inguinal hernia repair H/O umbilical hernia repair S/P percutaneous endoscopic gastrostomy (PEG) tube placement S/P rotator cuff repair Family History Other Dementia Psychiatric illness Social History Smoking and tobacco status: never smoked Alcohol intake: never Adopted: No Caregiver/support person: Yes Lives independently: No Housing: Correction Marital status: Single service: No Current occupational status: disabled Pets and animals: Yes History of recent travel: No Current gender identity: Male Course Vital Signs: Vital signs: Vital Signs Temperature 98.7 F 09/28/21 09:56 Pulse Rate 81 09/28/21 09:56 Respiratory Rate 19 H 09/28/21 09:56 Blood Pressure 153/92 09/28/21 09:56 Pulse Oximetry 96 09/28/21 09:56 MDM - SOB/Dyspnea MDM Narrative: Medical decision making narrative: Care initiated by myself as Dr. Milligan was attending to a critical patient. Care for patient will be transferred to him. Lab Data: Labs: Lab Results 09/28/21 09/28/2109/28/21 10:00 10:00 10:00 WBC 14.0 10^3/uL H 10 ^3/uL (4.0-10.0) RBC 5.40 10^6/uL H 10 ^6/uL (4.1-5.3) Hgb 15.4 g/dL g/dL (11.7-16.6) Hct 47.9 % % (42.0-52.0) MCV 88.7 fl fl (80-94) MCH 28.5 pg pg (28.0-34.0) MCHC 32.2 g/dL g/dL (30.0-36.0) RDW 14.7 % % (12.1-15.1) Plt Count 186 10^3/cmm 10^3 /cmm (130-400) MPV 10.5 fL H fL (7.4-10.4) Neut % (Auto) 89.8 % % Lymph % (Auto) 4.2 % % Prentiss % (Auto) 5.1 % % Eos % (Auto) 0.3 % % Baso % (Auto) 0.4 % % Neut # (Auto) 12.60 10^3/uL H 1 0^3/uL (1.8-7.7) Lymph # (Auto) 0.6 10^3/uL L 10^ 3/uL (0.8-4.8) Prentiss # (Auto) 0.7 10^3/uL 10^3/ uL (0.2-0.9) Eos # (Auto) 0.0 10^3/uL 10^3/ uL (0.0-0.8) Baso # (Auto) 0.1 10^3/uL 10^3/ uL (0.0-0.1) Nucleated RBC % (a uto) 0 % % Nucleated RBCs # 0.0 /100WBC /100W BC Specimen Type Sample Site ABG pH ABG pCO2 ABG pO2 ABG HCO3 ABG O2 Saturation ABG Base Excess Carl Test A-a O2 Gradient Hematocrit Hgb O2 Saturation Carboxyhemoglobin Methemoglobin Total Hemoglobin Ionized Calcium O2 Delivery Device O2 Liters/Min FiO2 Specimen Drawn By Assistant Refinery Operator ID Sodium 138 mmol/L mmol/L (136-145) Potassium 4.9 mmol/L mmol/L (3.5-5.1) Chloride 102 mmol/L mmol/L (98-107) Carbon Dioxide 22 mmol/L mmol/L (22-29) Anion Gap 18.9 (5-19) BUN 12 mg/dL mg/dL (6-20) Creatinine 0.2 mg/dL L mg/dL (0.7-1.2) GFR Calculation 493.4 mL/min H mL /min (90-130) Glucose 99 mg/dL mg/dL (65-115) Calculated Osmolal ity 286 mOsm/kg mOsm/ kg (285-295) Lactic Acid 3.3 mmol/L H mmol /L (0.5-2.2) Calcium 8.9 mg/dL mg/dL (8.5-10.5) Total Bilirubin 0.9 mg/dL mg/dL (0.15-1.2) AST 10 U/L U/L (0-40) ALT 11 U/L U/L (0-41) Alkaline Phosphata se 106 IU/L IU/L (40-130) Troponin T Baselin e Total Protein 6.1 g/dL L g/dL (6.6-8.7) Albumin 4.2 g/dL g/dL (3.5-5.2) Globulin 1.9 g/dL g/dL (1.3-4.6) Urine Color Urine Appearance Urine pH Ur Specific Gravit y Urine Protein Urine Glucose (UA) Urine Ketones Urine Blood Urine Nitrate Urine Bilirubin Prot Sulfosalicyli c Acd Urine Urobilinogen Ur Leukocyte Nancy ase Urine RBC Urine WBC Ur Squamous Epith Cells Amorphous Sediment Urine Bacteria Urine Mucus SARS-CoV-2 Ag (Rap id) 09/28/21 09/28/21 09/28/21 10:00 11:00 11:00 WBC RBC Hgb Hct MCV MCH MCHC RDW Plt Count MPV Neut % (Auto) Lymph % (Auto) Prentiss % (Auto) Eos % (Auto) Baso % (Auto) Neut # (Auto) Lymph # (Auto) Prentiss # (Auto) Eos # (Auto) Baso # (Auto) Nucleated RBC % (a uto) Nucleated RBCs # Specimen Type Arterial Sample Site Left radial ABG pH 7.44 (7.35-7.45) ABG pCO2 36.7 mmHg mmHg (35-45) ABG pO2 76.6 mmHg L mmHg (80.0-100.0) ABG HCO3 25.0 mmol/L mmol/ L (22-26) ABG O2 Saturation 94.4 ABG Base Excess 1.2 mmol/L mmol/L (-2.0-2.0) Carl Test Yes A-a O2 Gradient 154.4 mmHg H mmHg (5-10) Hematocrit 47.7 % % (42-52) Hgb O2 Saturation 93.8 % L % (95-100) Carboxyhemoglobin 0.5 %THgb %THgb (0.4-20.1) Methemoglobin 0.2 % L % (0.4-1.5) Total Hemoglobin 15.6 g/dL g/dL (14-18) Ionized Calcium 1.2 mmol/L mmol/L (1.1-1.4) O2 Delivery Device Nc O2 Liters/Min 5.0 % % FiO2 40.0 % % Specimen Drawn By Duner Assistant Refinery Operator ID Left radial Sodium 135.0 mmol/L mmol /L (131-143) Potassium 4.0 mmol/L mmol/L (3.5-5.0) Chloride Carbon Dioxide Anion Gap BUN Creatinine GFR Calculation Glucose 112.0 mg/dL mg/dL (70-115) Calculated Osmolal ity Lactic Acid Calcium Total Bilirubin AST ALT Alkaline Phosphata se Troponin T Baselin e 11 ng/L ng/L (0-15) Total Protein Albumin Globulin Urine Color Yellow (Yellow) Urine Appearance Cloudy (CLEAR) Urine pH 8 H (5-7) Ur Specific Gravit y 1.015 (1.005-1.030) Urine Protein Neg (Negative) Urine Glucose (UA) Norm (Normal) Urine Ketones Negative (Negative) Urine Blood 2+ H (Negative) Urine Nitrate Positive H (Negative) Urine Bilirubin Neg (Negative) Prot Sulfosalicyli c Acd Negative (Negative) Urine Urobilinogen Norm mg/dL mg/dL (Negative) Ur Leukocyte Nancy ase 1+ H (Negative) Urine RBC 0-4 /hpf H /hpf (0-2) Urine WBC 15-25 /hpf H /hpf (0-5) Ur Squamous Epith Cells 5-10 /hpf H /hpf (0-5) Amorphous Sediment 2+ /hpf /hpf Urine Bacteria 3+ /hpf H /hpf (NONE) Urine Mucus 1+ /hpf /hpf SARS-CoV-2 Ag (Rap id) 09/28/21 11:00 WBC RBC Hgb Hct MCV MCH MCHC RDW Plt Count MPV Neut % (Auto) Lymph % (Auto) Prentiss % (Auto) Eos % (Auto) Baso % (Auto) Neut # (Auto) Lymph # (Auto) Prentiss # (Auto) Eos # (Auto) Baso # (Auto) Nucleated RBC % (a uto) Nucleated RBCs # Specimen Type Sample Site ABG pH ABG pCO2 ABG pO2 ABG HCO3 ABG O2 Saturation ABG Base Excess Carl Test A-a O2 Gradient Hematocrit Hgb O2 Saturation Carboxyhemoglobin Methemoglobin Total Hemoglobin Ionized Calcium O2 Delivery Device O2 Liters/Min FiO2 Specimen Drawn By Assistant Refinery Operator ID Sodium Potassium Chloride Carbon Dioxide Anion Gap BUN Creatinine GFR Calculation Glucose Calculated Osmolal ity Lactic Acid Calcium Total Bilirubin AST ALT Alkaline Phosphata se Troponin T Baselin e Total Protein Albumin Globulin Urine Color Urine Appearance Urine pH Ur Specific Gravit y Urine Protein Urine Glucose (UA) Urine Ketones Urine Blood Urine Nitrate Urine Bilirubin Prot Sulfosalicyli c Acd Urine Urobilinogen Ur Leukocyte Nancy ase Urine RBC Urine WBC Ur Squamous Epith Cells Amorphous Sediment Urine Bacteria Urine Mucus SARS-CoV-2 Ag (Rap id) Negative (Negative) Discharge Plan Discharge Patient Disposition: Admitted As Inpatient Clinical Impression: Recurrent aspiration pneumonia, Multiple sclerosis, Hypertension Condition: Stable Prescriptions: No Action sulfamethoxazole-trimethoprim 800-160 mg tablet 1 tab PO .3 TIMES WEEKLY RF: 0 multivitamin Tablet 1 tab feeding tube DAILY@08 RF: 0 albuterol sulfate 2.5 mg /3 mL (0.083 %) Solution For Nebulization 2.5 mg INHALATION Q4H PRN (Reason: Shortness Of Breath) RF: 0 cetirizine 10 mg Tablet 10 mg feeding tube DAILY@08 RF: 0 atenolol 100 mg Tablet 100 mg feeding tube DAILY RF: 0 hydrocodone-acetaminophen 10-325 mg Tablet 1 tab feeding tube Q4H PRN (Reason: Pain) RF: 0 calcium carbonate 500 mg calcium (1,250 mg) Tablet 500 mg feeding tube DAILY PRN (Reason: Acid Reflux) RF: 0 baclofen 10 mg Tablet 15 mg feeding tube QID RF: 0 gabapentin 300 mg Capsule 300 mg feeding tube TID@08,14,20 RF: 0 sertraline 50 mg Tablet 50 mg feeding tube DAILY@08 RF: 0 Aubagio 14 mg Tablet 14 mg feeding tube DAILY@08 RF: 0 acetaminophen [Tylenol] 325 mg Tablet 650 mg feeding tube Q6H PRN (Reason: Pain) RF: 0 sennosides-docusate sodium [Senna-S] 8.6-50 mg Tablet See Rx Instructions .ROUTE .COMPLEX RF: 0 loperamide 2 mg Tablet 2 mg feeding tube Q4H PRN (Reason: Diarrhea) RF: 0 magnesium hydroxide [Milk of Magnesia] 400 mg/5 mL Suspension 30 ml feeding tube DAILY PRN (Reason: Constipation) RF: 0 bisacodyl 10 mg Suppository 10 mg IN DAILY PRN (Reason: Constipation) RF: 0 diphenhydramine HCl [Benadryl] 25 mg Capsule 25 mg feeding tube Q6H PRN (Reason: Allergy Symptoms) RF: 0 Enema Disposable 19-7 gram/118 mL Enema 118 ml IN DAILY PRN (Reason: Constipation) RF: 0 Acidophilus-Pectin 75 million cell -100 mg Capsule See Rx Instructions .ROUTE .COMPLEX RF: 0 Prostat Liquid 30 ml feeding tube TID RF: 0 ondansetron HCl 4 mg Tablet 4 mg feeding tube Q8H PRN (Reason: Nausea And Vomiting) RF: 0 potassium chloride 20 mEq/15 mL liquid 20 meq feeding tube BID@08,20 RF: 0 Lubricant Eye (PG-PEG 400) 0.4-0.3 % Drops 2 drp ophthalmic (eye) QID PRN (Reason: Dry Eyes) RF: 0 MediHoney (honey) 80 % Gel See Rx Instructions .ROUTE .COMPLEX RF: 0 acetylcysteine 200 mg/mL (20 %) Solution 100 mg inhalation BID Qty: 30 RF: 0 Hyper-Brennan 3.5 % Solution For Nebulization 4 ml inhalation BID Qty: 240 RF: 0 Referrals: Christy Sanchez MD, [facility] [place] [facility] [place]Primary Care Provider] - Coding Level of Care Code ED Parts Counter Specialist for Chg Fwd Exam Comprehensive Documented by User: Osiel Milligan DO 09/28/21 13:23 HPI - SOB/Dyspnea General: Chief Complaint: Shortness of Breath/Dyspnea Stated Complaint: MS, PNEUMONIA, NG TUBE, LOW O2 SAT Time Seen by Provider: 09/28/21 10:03 History of Present Illness: HPI Narrative: 56-year-old male with a history of MS and repeated aspiration pneumonias in the past. He was hospitalized a few months ago ultimately had a bronchoscopy for mucous plugging. At that time he was on vancomycin and Zosyn (discharge is listed as allergic to amoxicillin but he has tolerated Augmentin in the previous hospitalization he was treated with Zosyn without difficulty.) Comes in today now requiring oxygen which she normally does not. There is also complaint per the mother who is attentive to him at the senior living that he has a headache. MD elicited complaint: shortness of breath and cough Pertinent past history: pneumonia Onset (ago): hour(s) Context: choking/aspiration Timing: constant Severity: moderate Exacerbating factors: lying flat and coughing Relieving factors: oxygen, rest and upright position Known history of: recurrent pneumonia and aspiration pneumonia Associated symptoms: Reports chest congestion and cough; Deny abdominal pain, chest pain, diaphoresis, dizziness, extremity pain, fever(s), hemoptysis, lightheadedness, myalgias, nausea, orthopnea, palpitations, paresthesias, polydipsia, polyuria, rash, sense of impending doom, syncope or vomiting Treatment prior to arrival: none and oxygen Review of Systems Const: Denies: fever(s) or diaphoresis ENMT: Denies: throat pain, ear or mastoid pain, nasal discharge or nasal congestion Card: Denies: chest pain, palpitations, lightheadedness, syncope or orthopnea Resp: Reports: chest congestion; Denies: hemoptysis GI: Denies: abdominal pain, nausea or vomiting : Denies: flank pain, dysuria, urinary frequency or urinary urgency Musc: Denies: extremity pain Skin/Breast: Denies: rash or pruritus Neuro: Denies: dizziness Endo: Denies: polyuria or polydipsia PFSH ED PFSH: Medical History Acute and chronic respiratory failure with hypoxia Aspiration pneumonia Depression DNR (do not resuscitate) Hypertension Multiple sclerosis shelter resident Surgical History H/O right inguinal hernia repair H/O umbilical hernia repair S/P percutaneous endoscopic gastrostomy (PEG) tube placement S/P rotator cuff repair Family History Other Dementia Psychiatric illness Social History Smoking and tobacco status: never smoked Alcohol intake: never Adopted: No Caregiver/support person: Yes Lives independently: No Housing: Correction Marital status: Single service: No Current occupational status: disabled Pets and animals: Yes History of recent travel: No Current gender identity: Male Physical Exam Const: COMMON NORMALS: no acute distress GENERAL APPEARANCE: cooperative and comfortable ORIENTATION/CONSCIOUSNESS: Yes awake HENMT: COMMON NORMALS: normocephalic, atraumatic and hearing grossly normal bilaterally HEAD & SCALP: normocephalic and atraumatic Neck/C-Spine: COMMON NORMALS: no JVD Resp: AUSCULTATION: rhonchi, wheezes and diminished lung sounds Cardio: COMMON NORMALS: no JVD, regular rate, regular rhythm and No murmurs present (Cardio) RATE: regular rate RHYTHM: regular rhythm GI: COMMON NORMALS: Soft to palpation and No hepatosplenomegaly present AUSCULTATION: Yes normoactive bowel sounds PALPATION: Yes Soft to palpation, No Tenderness to palpation present (GI), No Guarding due to palpation present (GI) and Yes No hepatosplenomegaly present Extremity: COMMON NORMALS: normal to inspection, capillary refill normal, no clubbing, cyanosis or edema, no calf tenderness and no pedal edema Skin: COMMON NORMALS: no rashes or lesions noted GENERAL SKIN EXAM: no rashes or lesions noted Course Vital Signs: Vital signs: Vital Signs Temperature 98.7 F 09/28/21 09:56 Pulse Rate 81 09/28/21 09:56 Respiratory Rate 19 H 09/28/21 09:56 Blood Pressure 153/92 09/28/21 09:56 Pulse Oximetry 96 09/28/21 09:56 MDM - SOB/Dyspnea MDM Narrative: Medical decision making narrative: Patient shows signs of pneumonia. Will admit Vanco and Zosyn. Pulmonary toilet and oxygen support as needed. Lab Data: Labs: Lab Results 09/28/21 09/28/21 09/28/21 10:00 10:00 10:00 WBC 14.0 10^3/uL H 10 ^3/uL (4.0-10.0) RBC 5.40 10^6/uL H 10 ^6/uL (4.1-5.3) Hgb 15.4 g/dL g/dL (11.7-16.6) Hct 47.9 % % (42.0-52.0) MCV 88.7 fl fl (80-94) MCH 28.5 pg pg (28.0-34.0) MCHC 32.2 g/dL g/dL (30.0-36.0) RDW 14.7 % % (12.1-15.1) Plt Count 186 10^3/cmm 10^3 /cmm (130-400) MPV 10.5 fL H fL (7.4-10.4) Neut % (Auto) 89.8 % % Lymph % (Auto) 4.2 % % Prentiss % (Auto) 5.1 % % Eos % (Auto) 0.3 % % Baso % (Auto) 0.4 % % Neut # (Auto) 12.60 10^3/uL H 1 0^3/uL (1.8-7.7) Lymph # (Auto) 0.6 10^3/uL L 10^ 3/uL (0.8-4.8) Prentiss # (Auto) 0.7 10^3/uL 10^3/ uL (0.2-0.9) Eos # (Auto) 0.0 10^3/uL 10^3/ uL (0.0-0.8) Baso # (Auto) 0.1 10^3/uL 10^3/ uL (0.0-0.1) Nucleated RBC % (a uto) 0 % % Nucleated RBCs # 0.0 /100WBC /100W BC Specimen Type Sample Site ABG pH ABG pCO2 ABG pO2 ABG HCO3 ABG O2 Saturation ABG Base Excess Carl Test A-a O2 Gradient Hematocrit Hgb O2 Saturation Carboxyhemoglobin Methemoglobin Total Hemoglobin Ionized Calcium O2 Delivery Device O2 Liters/Min FiO2 Specimen Drawn By Assistant Refinery Operator ID Sodium 138 mmol/L mmol/L (136-145) Potassium 4.9 mmol/L mmol/L (3.5-5.1) Chloride 102 mmol/L mmol/L (98-107) Carbon Dioxide 22 mmol/L mmol/L (22-29) Anion Gap 18.9 (5-19) BUN 12 mg/dL mg/dL (6-20) Creatinine 0.2 mg/dL L mg/dL (0.7-1.2) GFR Calculation 493.4 mL/min H mL /min (90-130) Glucose 99 mg/dL mg/dL (65-115) Calculated Osmolal ity 286 mOsm/kg mOsm/ kg (285-295) Lactic Acid 3.3 mmol/L H mmol /L (0.5-2.2) Calcium 8.9 mg/dL mg/dL (8.5-10.5) Total Bilirubin 0.9 mg/dL mg/dL (0.15-1.2) AST 10 U/L U/L (0-40) ALT 11 U/L U/L (0-41) Alkaline Phosphata se 106 IU/L IU/L (40-130) Troponin T Baselin e Total Protein 6.1 g/dL L g/dL (6.6-8.7) Albumin 4.2 g/dL g/dL (3.5-5.2) Globulin 1.9 g/dL g/dL (1.3-4.6) Urine Color Urine Appearance Urine pH Ur Specific Gravit y Urine Protein Urine Glucose (UA) Urine Ketones Urine Blood Urine Nitrate Urine Bilirubin Prot Sulfosalicyli c Acd Urine Urobilinogen Ur Leukocyte Nancy ase Urine RBC Urine WBC Ur Squamous Epith Cells Amorphous Sediment Urine Bacteria Urine Mucus SARS-CoV-2 Ag (Rap id) 09/28/21 09/28/21 09/28/21 10:00 11:00 11:00 WBC RBC Hgb Hct MCV MCH MCHC RDW Plt Count MPV Neut % (Auto) Lymph % (Auto) Prentiss % (Auto) Eos % (Auto) Baso % (Auto) Neut # (Auto) Lymph # (Auto) Prentiss # (Auto) Eos # (Auto) Baso # (Auto) Nucleated RBC % (a uto) Nucleated RBCs # Specimen Type Arterial Sample Site Left radial ABG pH 7.44 (7.35-7.45) ABG pCO2 36.7 mmHg mmHg (35-45) ABG pO2 76.6 mmHg L mmHg (80.0-100.0) ABG HCO3 25.0 mmol/L mmol/ L (22-26) ABG O2 Saturation 94.4 ABG Base Excess 1.2 mmol/L mmol/L (-2.0-2.0) Carl Test Yes A-a O2 Gradient 154.4 mmHg H mmHg (5-10) Hematocrit 47.7 % % (42-52) Hgb O2 Saturation 93.8 % L % (95-100) Carboxyhemoglobin 0.5 %THgb %THgb (0.4-20.1) Methemoglobin 0.2 % L % (0.4-1.5) Total Hemoglobin 15.6 g/dL g/dL (14-18) Ionized Calcium 1.2 mmol/L mmol/L (1.1-1.4) O2 Delivery Device Nc O2 Liters/Min 5.0 % % FiO2 40.0 % % Specimen Drawn By Duner Assistant Refinery Operator ID Left radial Sodium 135.0 mmol/L mmol /L (131-143) Potassium 4.0 mmol/L mmol/L (3.5-5.0) Chloride Carbon Dioxide Anion Gap BUN Creatinine GFR Calculation Glucose 112.0 mg/dL mg/dL (70-115) Calculated Osmolal ity Lactic Acid Calcium Total Bilirubin AST ALT Alkaline Phosphata se Troponin T Baselin e 11 ng/L ng/L (0-15) Total Protein Albumin Globulin Urine Color Yellow (Yellow) Urine Appearance Cloudy (CLEAR) Urine pH 8 H (5-7) Ur Specific Gravit y 1.015 (1.005-1.030) Urine Protein Neg (Negative) Urine Glucose (UA) Norm (Normal) Urine Ketones Negative (Negative) Urine Blood 2+ H (Negative) Urine Nitrate Positive H (Negative) Urine Bilirubin Neg (Negative) Prot Sulfosalicyli c Acd Negative (Negative) Urine Urobilinogen Norm mg/dL mg/dL (Negative) Ur Leukocyte Nancy ase 1+ H (Negative) Urine RBC 0-4 /hpf H /hpf (0-2) Urine WBC 15-25 /hpf H /hpf (0-5) Ur Squamous Epith Cells 5-10 /hpf H /hpf (0-5) Amorphous Sediment 2+ /hpf /hpf Urine Bacteria 3+ /hpf H /hpf (NONE) Urine Mucus 1+ /hpf /hpf SARS-CoV-2 Ag (Rap id) 09/28/21 11:00 WBC RBC Hgb Hct MCV MCH MCHC RDW Plt Count MPV Neut % (Auto) Lymph % (Auto) Prentiss % (Auto) Eos % (Auto) Baso % (Auto) Neut # (Auto) Lymph # (Auto) Prentiss # (Auto) Eos # (Auto) Baso # (Auto) Nucleated RBC % (a uto) Nucleated RBCs # Specimen Type Sample Site ABG pH ABG pCO2 ABG pO2 ABG HCO3 ABG O2 Saturation ABG Base Excess Carl Test A-a O2 Gradient Hematocrit Hgb O2 Saturation Carboxyhemoglobin Methemoglobin Total Hemoglobin Ionized Calcium O2 Delivery Device O2 Liters/Min FiO2 Specimen Drawn By Assistant Refinery Operator ID Sodium Potassium Chloride Carbon Dioxide Anion Gap BUN Creatinine GFR Calculation Glucose Calculated Osmolal ity Lactic Acid Calcium Total Bilirubin AST ALT Alkaline Phosphata se Troponin T Baselin e Total Protein Albumin Globulin Urine Color Urine Appearance Urine pH Ur Specific Gravit y Urine Protein Urine Glucose (UA) Urine Ketones Urine Blood Urine Nitrate Urine Bilirubin Prot Sulfosalicyli c Acd Urine Urobilinogen Ur Leukocyte Nancy ase Urine RBC Urine WBC Ur Squamous Epith Cells Amorphous Sediment Urine Bacteria Urine Mucus SARS-CoV-2 Ag (Rap id) Negative (Negative) Discharge Plan Discharge Patient Disposition: Admitted As Inpatient Clinical Impression: Recurrent aspiration pneumonia, Multiple sclerosis, Hypertension Condition: Stable Prescriptions: No Action sulfamethoxazole-trimethoprim 800-160 mg tablet 1 tab PO .3 TIMES WEEKLY RF: 0 multivitamin Tablet 1 tab feeding tube DAILY@08 RF: 0 albuterol sulfate 2.5 mg /3 mL (0.083 %) Solution For Nebulization 2.5 mg INHALATION Q4H PRN (Reason: Shortness Of Breath) RF: 0 cetirizine 10 mg Tablet 10 mg feeding tube DAILY@08 RF: 0 atenolol 100 mg Tablet 100 mg feeding tube DAILY RF: 0 hydrocodone-acetaminophen 10-325 mg Tablet 1 tab feeding tube Q4H PRN (Reason: Pain) RF: 0 calcium carbonate 500 mg calcium (1,250 mg) Tablet 500 mg feeding tube DAILY PRN (Reason: Acid Reflux) RF: 0 baclofen 10 mg Tablet 15 mg feeding tube QID RF: 0 gabapentin 300 mg Capsule 300 mg feeding tube TID@08,14,20 RF: 0 sertraline 50 mg Tablet 50 mg feeding tube DAILY@08 RF: 0 Aubagio 14 mg Tablet 14 mg feeding tube DAILY@08 RF: 0 acetaminophen [Tylenol] 325 mg Tablet 650 mg feeding tube Q6H PRN (Reason: Pain) RF: 0 sennosides-docusate sodium [Senna-S] 8.6-50 mg Tablet See Rx Instructions .ROUTE .COMPLEX RF: 0 loperamide 2 mg Tablet 2 mg feeding tube Q4H PRN (Reason: Diarrhea) RF: 0 magnesium hydroxide [Milk of Magnesia] 400 mg/5 mL Suspension 30 ml feeding tube DAILY PRN (Reason: Constipation) RF: 0 bisacodyl 10 mg Suppository 10 mg IN DAILY PRN (Reason: Constipation) RF: 0 diphenhydramine HCl [Benadryl] 25 mg Capsule 25 mg feeding tube Q6H PRN (Reason: Allergy Symptoms) RF: 0 Enema Disposable 19-7 gram/118 mL Enema 118 ml IN DAILY PRN (Reason: Constipation) RF: 0 Acidophilus-Pectin 75 million cell -100 mg Capsule See Rx Instructions .ROUTE .COMPLEX RF: 0 Prostat Liquid 30 ml feeding tube TID RF: 0 ondansetron HCl 4 mg Tablet 4 mg feeding tube Q8H PRN (Reason: Nausea And Vomiting) RF: 0 potassium chloride 20 mEq/15 mL liquid 20 meq feeding tube BID@08,20 RF: 0 Lubricant Eye (PG-PEG 400) 0.4-0.3 % Drops 2 drp ophthalmic (eye) QID PRN (Reason: Dry Eyes) RF: 0 MediHoney (honey) 80 % Gel See Rx Instructions .ROUTE .COMPLEX RF: 0 acetylcysteine 200 mg/mL (20 %) Solution 100 mg inhalation BID Qty: 30 RF: 0 Hyper-Brennan 3.5 % Solution For Nebulization 4 ml inhalation BID Qty: 240 RF: 0 Referrals: Christy Sanchez MD, [facility] [Primary Care Provider] - Coding Level of Care Code ED Parts Counter Specialist for Chg Fwd Exam Comprehensive
[2021-09-28 10:11] LABS: Basophils # 0.1 10^3/uL (0.0-0.1); Basophils % 0.4 %; Eosinophils % 0.3 %; Hematocrit 47.9 % (42.0-52.0); Hemoglobin 15.4 g/dL (11.7-16.6); Lymphocytes # 0.6 10^3/uL (0.8-4.8); Lymphocytes % 4.2 %; Mean Corpuscular HGB Conc 32.2 g/dL (30.0-36.0); Mean Corpuscular Hemoglobin 28.5 pg (28.0-34.0); Mean Corpuscular Volume 88.7 fl (80-94); Mean Platelet Volume 10.5 fL (7.4-10.4); Monocytes # 0.7 10^3/uL (0.2-0.9); Monocytes % 5.1 %; Neutrophils % 89.8 %; Nucleated Red Blood Cells % 0 %; Platelet Count 186 10^3/cmm (130-400); Red Cell Distribution Width 14.7 % (12.1-15.1)
[2021-09-28 10:31] LABS: Lactic Sepsis W/Reflex 3.3 mmol/L (0.5-2.2)
--- NOTE | 2021-09-28 10:35 | W.ED.SOB ---
HPI - SOB/Dyspnea General: Chief Complaint: Shortness of Breath/Dyspnea Stated Complaint: MS, PNEUMONIA, NG TUBE, LOW O2 SAT Time Seen by Provider: 09/28/21 10:03 Source: family and EMS Mode of arrival: EMS Limitations: no limitations PFSH ED PFSH: Medical History Acute and chronic respiratory failure with hypoxia Aspiration pneumonia Depression DNR (do not resuscitate) Hypertension Multiple sclerosis shelter resident Surgical History H/O right inguinal hernia repair H/O umbilical hernia repair S/P percutaneous endoscopic gastrostomy (PEG) tube placement S/P rotator cuff repair Family History Other Dementia Psychiatric illness Social History Smoking and tobacco status: never smoked Alcohol intake: never Adopted: No Caregiver/support person: Yes Lives independently: No Housing: Prison Marital status: Single service: No Current occupational status: disabled Pets and animals: Yes History of recent travel: No Current gender identity: Male Course Vital Signs: Vital signs: Vital Signs Temperature 98.7 F 09/28/21 09:56 Pulse Rate 81 09/28/21 09:56 Respiratory Rate 19 H 09/28/21 09:56 Blood Pressure 153/92 09/28/21 09:56 Pulse Oximetry 96 09/28/21 09:56 MDM - SOB/Dyspnea Lab Data: Labs: Lab Results 09/28/21 09/28/21 09/28/21 10:00 10:00 10:00 WBC 14.0 10^3/uL H 10 ^3/uL (4.0-10.0) RBC 5.40 10^6/uL H 10 ^6/uL (4.1-5.3) Hgb 15.4 g/dL g/dL (11.7-16.6) Hct 47.9 % % (42.0-52.0) MCV 88.7 fl fl (80-94) MCH 28.5 pg pg (28.0-34.0) MCHC 32.2 g/dL g/dL (30.0-36.0) RDW 14.7 % % (12.1-15.1) Plt Count 186 10^3/cmm 10^3 /cmm (130-400) MPV 10.5 fL H fL (7.4-10.4) Neut % (Auto) 89.8 % % Lymph % (Auto) 4.2 % % [place] % (Auto) 5.1 % % Eos % (Auto) 0.3 % % Baso % (Auto) 0.4 % % Neut # (Auto) 12.60 10^3/uL H 1 0^3/uL (1.8-7.7) Lymph # (Auto) 0.6 10^3/uL L 10^ 3/uL (0.8-4.8) [place] # (Auto) 0.7 10^3/uL 10^3/ uL (0.2-0.9) Eos # (Auto) 0.0 10^3/uL 10^3/ uL (0.0-0.8) Baso # (Auto) 0.1 10^3/uL 10^3/ uL (0.0-0.1) Nucleated RBC % (a uto) 0 % % Nucleated RBCs # 0.0 /100WBC /100W BC Specimen Type Sample Site ABG pH ABG pCO2 ABG pO2 ABG HCO3 ABG O2 Saturation ABG Base Excess Carl Test A-a O2 Gradient Hematocrit Hgb O2 Saturation Carboxyhemoglobin Methemoglobin Total Hemoglobin Ionized Calcium O2 Delivery Device O2 Liters/Min FiO2 Specimen Drawn By News Camera Person ID Sodium 138 mmol/L mmol/L (136-145) Potassium 4.9 mmol/L mmol/L (3.5-5.1) Chloride 102 mmol/L mmol/L (98-107) Carbon Dioxide 22 mmol/L mmol/L (22-29) Anion Gap 18.9 (5-19) BUN 12 mg/dL mg/dL (6-20) Creatinine 0.2 mg/dL L mg/dL (0.7-1.2) GFR Calculation 493.4 mL/min H mL /min (90-130) Glucose 99 mg/dL mg/dL (65-115) Calculated Osmolal ity 286 mOsm/kg mOsm/ kg (285-295) Lactic Acid 3.3 mmol/L H mmol /L (0.5-2.2) Calcium 8.9 mg/dL mg/dL (8.5-10.5) Total Bilirubin 0.9 mg/dL mg/dL (0.15-1.2) AST 10 U/L U/L (0-40) ALT 11 U/L U/L (0-41) Alkaline Phosphata se 106 IU/L IU/L (40-130) Troponin T Baselin e Total Protein 6.1 g/dL L g/dL (6.6-8.7) Albumin 4.2 g/dL g/dL (3.5-5.2) Globulin 1.9 g/dL g/dL (1.3-4.6) Urine Color Urine Appearance Urine pH Ur Specific Gravit y Urine Protein Urine Glucose (UA) Urine Ketones Urine Blood Urine Nitrate Urine Bilirubin Prot Sulfosalicyli c Acd Urine Urobilinogen Ur Leukocyte Nancy ase Urine RBC Urine WBC Ur Squamous Epith Cells Amorphous Sediment Urine Bacteria Urine Mucus SARS-CoV-2 Ag (Rap id) 09/28/21 09/28/21 09/28/21 10:00 11:00 11:00 WBC RBC Hgb Hct MCV MCH MCHC RDW Plt Count MPV Neut % (Auto) Lymph % (Auto) [place] % (Auto) Eos % (Auto) Baso % (Auto) Neut # (Auto) Lymph # (Auto) [place] # (Auto) Eos # (Auto) Baso # (Auto) Nucleated RBC % (a uto) Nucleated RBCs # Specimen Type Arterial Sample Site Left radial ABG pH 7.44 (7.35-7.45) ABG pCO2 36.7 mmHg mmHg (35-45) ABG pO2 76.6 mmHg L mmHg (80.0-100.0) ABG HCO3 25.0 mmol/L mmol/ L (22-26) ABG O2 Saturation 94.4 ABG Base Excess 1.2 mmol/L mmol/L (-2.0-2.0) Carl Test Yes A-a O2 Gradient 154.4 mmHg H mmHg (5-10) Hematocrit 47.7 % % (42-52) Hgb O2 Saturation 93.8 % L % (95-100) Carboxyhemoglobin 0.5 %THgb %THgb (0.4-20.1) Methemoglobin 0.2 % L % (0.4-1.5) Total Hemoglobin 15.6 g/dL g/dL (14-18) Ionized Calcium 1.2 mmol/L mmol/L (1.1-1.4) O2 Delivery Device Nc O2 Liters/Min 5.0 % % FiO2 40.0 % % Specimen Drawn By Lilibeth News Camera Person ID Left radial Sodium 135.0 mmol/L mmol /L (131-143) Potassium 4.0 mmol/L mmol/L (3.5-5.0) Chloride Carbon Dioxide Anion Gap BUN Creatinine GFR Calculation Glucose 112.0 mg/dL mg/dL (70-115) Calculated Osmolal ity Lactic Acid Calcium Total Bilirubin AST ALT Alkaline Phosphata se Troponin T Baselin e 11 ng/L ng/L (0-15) Total Protein Albumin Globulin Urine Color Yellow (Yellow) Urine Appearance Cloudy (CLEAR) Urine pH 8 H (5-7) Ur Specific Gravit y 1.015 (1.005-1.030) Urine Protein Neg (Negative) Urine Glucose (UA) Norm (Normal) Urine Ketones Negative (Negative) Urine Blood 2+ H (Negative) Urine Nitrate Positive H (Negative) Urine Bilirubin Neg (Negative) Prot Sulfosalicyli c Acd Negative (Negative) Urine Urobilinogen Norm mg/dL mg/dL (Negative) Ur Leukocyte Nancy ase 1+ H (Negative) Urine RBC 0-4 /hpf H /hpf (0-2) Urine WBC 15-25 /hpf H /hpf (0-5) Ur Squamous Epith Cells 5-10 /hpf H /hpf (0-5) Amorphous Sediment 2+ /hpf /hpf Urine Bacteria 3+ /hpf H /hpf (NONE) Urine Mucus 1+ /hpf /hpf SARS-CoV-2 Ag (Rap id) 09/28/21 11:00 WBC RBC Hgb Hct MCV MCH MCHC RDW Plt Count MPV Neut % (Auto) Lymph % (Auto) [place] % (Auto) Eos % (Auto) Baso % (Auto) Neut # (Auto) Lymph # (Auto) [place] # (Auto) Eos # (Auto) Baso # (Auto) Nucleated RBC % (a uto) Nucleated RBCs # Specimen Type Sample Site ABG pH ABG pCO2 ABG pO2 ABG HCO3 ABG O2 Saturation ABG Base Excess Carl Test A-a O2 Gradient Hematocrit Hgb O2 Saturation Carboxyhemoglobin Methemoglobin Total Hemoglobin Ionized Calcium O2 Delivery Device O2 Liters/Min FiO2 Specimen Drawn By News Camera Person ID Sodium Potassium Chloride Carbon Dioxide Anion Gap BUN Creatinine GFR Calculation Glucose Calculated Osmolal ity Lactic Acid Calcium Total Bilirubin AST ALT Alkaline Phosphata se Troponin T Baselin e Total Protein Albumin Globulin Urine Color Urine Appearance Urine pH Ur Specific Gravit y Urine Protein Urine Glucose (UA) Urine Ketones Urine Blood Urine Nitrate Urine Bilirubin Prot Sulfosalicyli c Acd Urine Urobilinogen Ur Leukocyte Nancy ase Urine RBC Urine WBC Ur Squamous Epith Cells Amorphous Sediment Urine Bacteria Urine Mucus SARS-CoV-2 Ag (Rap id) Negative (Negative) Discharge Plan Discharge Patient Disposition: Admitted As Inpatient Clinical Impression: Recurrent aspiration pneumonia, Multiple sclerosis, Hypertension Condition: Stable Coding Level of Care Code ED [employer] Cutter for Macie Klein
[2021-09-28 10:38] LABS: Alanine Aminotransferase 11 U/L (0-41); Albumin Level 4.2 g/dL (3.5-5.2); Alkaline Phosphatase 106 IU/L (40-130); Anion Gap 18.9 (5-19); Aspartate Amino Transferase 10 U/L (0-40); Blood Urea Nitrogen 12 mg/dL (6-20); Calcium 8.9 mg/dL (8.5-10.5); Carbon Dioxide 22 mmol/L (22-29); Chloride 102 mmol/L (98-107); Globulin 1.9 g/dL (1.3-4.6); Glomerular Filtration Rate 493.4 mL/min (90-130); Glucose 99 mg/dL (65-115); Osmolality Calculated 286 mOsm/kg (285-295); Potassium 4.9 mmol/L (3.5-5.1); Sodium 138 mmol/L (136-145); Total Bilirubin 0.9 mg/dL (0.15-1.2); Total Protein 6.1 g/dL (6.6-8.7)
[2021-09-28 10:39] LABS: Troponin(5th) Baseline 11 ng/L (0-15)
[2021-09-28 11:20] LABS: Glucose Urine UA Norm (Normal); Protein Urine Neg (Negative); Specific Gravity, Urine 1.015 (1.005-1.030); Urine Appearance Cloudy (CLEAR); Urine Color Yellow (Yellow); pH Urine 8 (5-7)
[2021-09-28 11:21] LABS: Add Urine Microscopic? YES; Bilirubin Urine Neg (Negative); Blood Urine 2+ (Negative); Ketones Urine Negative (Negative); Leukocyte Esterase Urine 1+ (Negative); Nitrate Urine Positive (Negative); RBC Urine 0-4 /hpf (0-2); Sulfosalicylic Acid Urine Negative (Negative); Urobilinogen Urine Norm (Negative); WBC Urine 15-25 /hpf (0-5)
[2021-09-28 11:22] LABS: Add Urine Culture? Yes; Amorphous Sediment Urine 2+ /hpf; Bacteria Urine 3+ /hpf; Mucus Urine 1+ /hpf
[2021-09-28 11:25] LABS: SARS Covid-2 Antigen Negative (Negative)
[2021-09-28] MEDS: ondansetron 2 mg/ML SDV 2 mL 4 MG IVP (11:35)
[2021-09-28] MEDS: ketorolac 30 mg/mL INJ IVP (11:36)
[2021-09-28] MEDS: piperacillin-tazobactam 3.375 GM in sodium chloride 0.9% (plus) 50 ML IV ×2 (11:39→20:02)
[2021-09-28 11:54] LABS: Reflex Lactate Order REFLEX LACTIC ORDERD
--- NOTE | 2021-09-28 12:03 | ECG_ITS ---
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 Measurements Intervals [place] Rate: 75 P: 58 MD: 205 QRS: -61 QRSD: 94 T: 65 QT: 384 QTc: 430 Interpretive Statements SINUS RHYTHM POSSIBLE LEFT ATRIAL ENLARGEMENT [-0.1mV P-WAVE IN V1/V2] POSSIBLE RIGHT VENTRICULAR CONDUCTION DELAY [RSR (QR) IN V1/V2] LEFT ANTERIOR FASCICULAR BLOCK [QRS AXIS <= -45, QR IN I, RS IN II] Compared to ECG 09/28/2021 10:50:42 No significant changes Electronically Signed On 09-29-2021 8:56:00 CDT by Soumya Brewer M.D. [id number]
[2021-09-28 13:26] LABS: ABG PCO2 36.7 mmHg (35-45); ABG PH Result 7.44 (7.35-7.45); Alveolar-Arterial Oxygen Gradi 20.6 mmHg (5-10); Base Excess ABG 1.2 mmol/L (-2.0-2.0); Blood Gas Allen Test Pos; Blood Gas Operator Identificat ED; Blood Gas Sample Site Radial, left; Blood Gas Sample Type Arterial; Oxygen Device NC; Oxygen Saturation ABG 94.4; PO2 ABG 76.6 mmHg (80.0-100.0)
[2021-09-28 13:27] LABS: Arterial Blood Gas Hematocrit 47.7 % (42-52); Carboxyhemoglobin 0.5 %THgb (0.4-20.1); HGB O2 Sat 93.8 % (95-100); Ionized Calcium Level - ABG 1.2 mmol/L (1.1-1.4); Methemoglobin 0.2 % (0.4-1.5); Total Hemoglobin 15.6 g/dL (14-18)
[2021-09-28] MEDS: vancomycin 1,000 MG in sodium chloride 0.9% 250 ML 250 MG IV ×2 (13:31→22:37)
[2021-09-28 13:45] LABS: Troponin 5 2HR 10.29 ng/L (0-15)
[2021-09-28 14:03] LABS: Troponin 5 2HR Delta -0.71 ABS# (0-10)
--- NOTE | 2021-09-28 14:05 | P.HP_ITS ---
Providers/Chief Complaint Primary Care Provider: Christy Sanchez MD, MSM Chief Complaint: MS, PNEUMONIA, NG TUBE, LOW O2 SAT History of Present Illness 56 year old male hypertension, barretts esophagus, chronic constipation, advanced multiple sclerosis with significant debility, bed bound, chronic sacral decubitus ulcer, dysphagia status post g- tube, severe chronic bladder outlet obstruction with indwelling Wei, and recurrent hospitalizations for respiratory failure due to aspiration pneumonia was brought in again today from the skilled nursing after concerns of aspiration pneumonia, as per the ER chart review skilled nursing RN states they were flushing patient's PEG tube when they believe he aspirated. Patient was complaining of headache upon arrival in the ER, he has history of chronic migraine, since age 4, was given Toradol for it in the ER to which he responded well. According to his mother he vomited secondary to severe headache and likely aspirated. Upon arrival in the ER he was requiring 5 L of oxygen, generally is not on oxygen at the skilled nursing. Mother is also complaining of urinary leakage around Wei,for which she is due to see Dr. Carnes as an outpatient. Upon arrival in the ER he was worked up for above-mentioned complaint. Pertinent imaging studies: XR chest 1V portable: Resolved opacification at the LEFT lung base since the prior study. Minimal linear scarring in the central RIGHT lung. EKG: No acute ST-T wave changes, sinus rhythm. Pertinent labs: WBC 14 t, H&H:15.4/47 , platelet count:186 , serum sodium 138 serum potassium 4.9, BUN 12 serum creatinine 0.2, lactic acid 3.3, repeat lactic acid 1, troponin trend without significant delta, Urinalysis: Dirty, rapid Covid negative, ABG: pH 7.44, PCO2 36, PO2 76, FiO2 40% Received a dose of Vanco and Zosyn in the ER Review of Systems General: Reports: ROS unobtainable due to medical condition Medications/Allergies Home Medications Medication Instructions Recorded Confirmed Last Taken Type Aubagio 14 mg FEEDING TUBE DAILY@08 06/05/20 09/28/21 09/27/21 History albuterol sulfate 2.5 mg INHALATION Q4H PRN 06/05/20 09/28/21 06/05/20 History atenolol 100 mg FEEDING TUBE DAILY 06/05/20 09/28/21 09/27/21 History baclofen 15 mg FEEDING TUBE QID 06/05/20 09/28/21 09/27/21 History calcium carbonate 500 mg FEEDING TUBE DAILY PRN 06/05/20 09/28/21 06/05/20 Hi story cetirizine 10 mg FEEDING TUBE DAILY@08 06/05/20 09/28/21 09/27/21 History gabapentin 300 mg FEEDING TUBE TID@08,,06/05/20 09/28/21 09/27/21 History hydrocodone-acetaminophen 1 tab FEEDING TUBE Q4H PRN 06/05/20 09/28/21 05/22/21 09:00 History multivitamin 1 tab FEEDING TUBE DAILY@06/05/20 09/28/21 09/27/21 History sertraline 50 mg FEEDING TUBE DAILY@08 06/05/20 09/28/21 09/27/21 History Acidophilus-Pectin See Rx Instructions .ROUTE .COMPLEX 05/22/21 09/28/21 09/27/21 History Enema Disposable 118 ml NM DAILY PRN 05/22/21 09/28/21 Unknown History Lubricant Eye (PG-PEG 400) 2 drp OPHTHALMIC (EYE) QID PRN 05/22/21 09/28/21 Unknown History MediHoney (honey) See Rx Instructions .ROUTE .COMPLEX 05/22/21 09/28/21 09/27/21 History Prostat Liquid 30 ml FEEDING TUBE TID 05/22/21 09/28/21 09/27/21 History acetaminophen [Tylenol] 650 mg FEEDING TUBE Q6H PRN 05/22/21 09/28/21 Unknown History bisacodyl 10 mg NM DAILY PRN 05/22/21 09/28/21 Unknown History diphenhydramine HCl [Benadryl] 25 mg FEEDING TUBE Q6H PRN 05/22/21 09/28/21 Unknown History loperamide 2 mg FEEDING TUBE Q4H PRN 05/22/21 09/28/21 Unknown History magnesium hydroxide [Milk of 30 ml FEEDING TUBE DAILY PRN 05/22/21 09/28/21 Unknown History Magnesia] ondansetron HCl 4 mg FEEDING TUBE Q8H PRN 05/22/21 09/28/21 Unknown History potassium chloride 20 meq FEEDING TUBE BID@,20 05/22/21 09/28/21 09/27/21 History sennosides-docusate sodium See Rx Instructions .ROUTE .COMPLEX 05/22/21 09/28/21 Unknown History [Senna-S] acetylcysteine 100 mg INHALATION BID #30 ml 05/25/21 09/28/21 09/27/21 Rx sodium chloride [Hyper-Brennan] 4 ml INHALATION BID #240 ml 05/25/21 09/28/21 1 Rx sulfamethoxazole 800 1 tab PO .3 TIMES WEEKLY 08/14/21 09/28/21 09/26/21 History mg-trimethoprim 160 mg tablet Allergies Allergy/AdvReac Type Severity Reaction Status Date / Time amoxicillin Allergy Unknown Unknown Verified 08/14/21 10:59 erythromycin base Allergy Unknown Unknown Verified 08/14/21 10:59 glatiramer (copolymer 1) Allergy Unknown Unknown Verified 08/14/21 10:59 [From Copaxone] guaifenesin [From Mucinex] Allergy Unknown Unknown Verified 08/14/21 10:59 interferon beta-1a Allergy Unknown Unknown Verified 08/14/21 10:59 [From Avonex] cefepime Allergy Unknown Verified 08/14/21 10:59 PFSH Acute PFSH: Medical History Acute and chronic respiratory failure with hypoxia Aspiration pneumonia Depression DNR (do not resuscitate) Hypertension Multiple sclerosis [facility] resident Surgical History H/O right inguinal hernia repair H/O umbilical hernia repair S/P percutaneous endoscopic gastrostomy (PEG) tube placement S/P rotator cuff repair Family History Other Dementia Psychiatric illness Social History Smoking and tobacco status: never smoked Alcohol intake: never Adopted: No Caregiver/support person: Yes Lives independently: No Housing: Correction Marital status: Single service: No Current occupational status: disabled Pets and animals: Yes History of recent travel: No Current gender identity: Male Vitals/I&O/Wt Last Vital Signs Temp 98.7 F 09/28/21 09:56 Pulse 81 09/28/21 09:56 Resp 19 H 09/28/21 09:56 BP 153/92 09/28/21 09:56 Pulse Ox 96 09/28/21 09:56 Weight last 48 hrs Weight 67.585 kg Physical Exam Narrative: EXAM NARRATIVE: Alert and awake HENMT: COMMON NORMALS: normocephalic and atraumatic HEAD & SCALP: normocephalic and atraumatic Resp: OTHER: Minimal bilateral wheezing, no rhonchi no rales Cardio: COMMON NORMALS: regular rate, regular rhythm, S1 normal heart sound present, S2 normal heart sound present, No gallops present (Cardio), No murmurs present (Cardio), No rub (Cardio) and Peripheral pulses 2+ throughout RATE: regular rate RHYTHM: regular rhythm HEART SOUNDS: S1 normal heart sound present and S2 normal heart sound present PERIPHERAL PULSES: Peripheral pulses 2+ throughout GI: COMMON NORMALS: Normal to inspection, nondistended, normoactive bowel sounds present, Soft to palpation, non-tender, No hepatosplenomegaly present and no masses AUSCULTATION: Yes normoactive bowel sounds PALPATION: Yes Soft to palpation and Yes No hepatosplenomegaly present RECTAL EXAM: Yes deferred Extremity: COMMON NORMALS: no clubbing, cyanosis or edema and no pedal edema Data : 09/28/21 10:00 09/28/21 10:00 Micro: Microbiology 09/28/21 13:18 Blood Culture - Preliminary Blood SPECIMEN COLLECTED 09/28/21 11:00 Blood Culture - Preliminary Blood SPECIMEN COLLECTED A&P Assessment and plan (1) Recurrent aspiration pneumonia: Blood culture. Sputum culture Monitor x-ray chest Continue Vanco and Zosyn Status: Acute (2) Multiple sclerosis: Status: Acute (3) Chronic indwelling Wei catheter: Status: Acute (4) Hypertension: Amlodipine 5 MG PO DAILY Status: Acute (5) S/P percutaneous endoscopic gastrostomy (PEG) tube placement: Status: Acute Additional A&P Information Possible UTI: Patient has chronic indwelling Wei catheter: Difficult to interpret urinalysis: Follow urine culture: Empirically on broad-spectrum antibiotics CODE STATUS:DNR/DNI DVT prophylaxis: On Lovenox Attestations Medical Necessity Statement*: Patient is to be in hospital for management of aspiration pneumonia.Anticipated length of stay greater than 2 midnights. 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
[2021-09-28 16:29] LABS: Troponin 5 6HR 10.83 ng/L (0-15)
[2021-09-28 16:34] LABS: Troponin 5 6HR Delta -0.17 ng/L (0-12)
[2021-09-28] MEDS: enoxaparin 40 mg/0.4 mL Syringe SUBCUT (16:35)
[2021-09-28] MEDS: gabapentin 300 mg Capsule PEG-TUBE (19:48)
[2021-09-28] MEDS: baclofen 10 mg Tablet 15 MG PEG-TUBE (19:48)
[2021-09-28] MEDS: D5-NS 0.45% + KCL 20 mEq 20 MEQ/1,000 ML BAG 100 MEQ IV (21:38)
[2021-09-28] MEDS: ipratropium-albuterol 3 mL Neb INHALATION (21:50)
[2021-09-29] VITALS (11 sets, daily range): BP systolic 112–149; BP diastolic 69–89; PULSE 71–82; RESP 16–18; TEMP 36.2–36.7; O2SAT 85–98
[2021-09-29] MEDS: ipratropium-albuterol 3 mL Neb INHALATION ×6 (01:13→20:09)
[2021-09-29] MEDS: piperacillin-tazobactam 3.375 GM in sodium chloride 0.9% (plus) 50 ML IV ×3 (03:58→21:30)
[2021-09-29] MEDS: D5-NS 0.45% + KCL 20 mEq 20 MEQ/1,000 ML BAG 100 MEQ IV (03:58)
[2021-09-29] MEDS: acetaminophen 325 mg Tablet 650 MG PO (04:44)
[2021-09-29 05:52] LABS: Basophils % 0.3 %; Eosinophils # 0.1 10^3/uL (0.0-0.8); Eosinophils % 1.7 %; Hematocrit 42.1 % (42.0-52.0); Hemoglobin 13.6 g/dL (11.7-16.6); Lymphocytes # 0.7 10^3/uL (0.8-4.8); Lymphocytes % 8.8 %; Mean Corpuscular HGB Conc 32.3 g/dL (30.0-36.0); Mean Corpuscular Hemoglobin 28.6 pg (28.0-34.0); Mean Corpuscular Volume 88.4 fl (80-94); Mean Platelet Volume 10.1 fL (7.4-10.4); Monocytes # 0.6 10^3/uL (0.2-0.9); Monocytes % 8.1 %; Neutrophils # 6.08 10^3/uL (1.8-7.7); Neutrophils % 80.8 %; Nucleated Red Blood Cells % 0 %; Platelet Count 163 10^3/cmm (130-400); Red Blood Count 4.76 10^6/uL (4.1-5.3); Red Cell Distribution Width 14.7 % (12.1-15.1); White Blood Count 7.5 10^3/uL (4.0-10.0)
[2021-09-29 06:19] LABS: Anion Gap 12.8 (5-19); Blood Urea Nitrogen 9 mg/dL (6-20); Calcium 8.4 mg/dL (8.5-10.5); Carbon Dioxide 22 mmol/L (22-29); Chloride 106 mmol/L (98-107); Glucose 121 mg/dL (65-115); Osmolality Calculated 284 mOsm/kg (285-295); Potassium 3.8 mmol/L (3.5-5.1); Sodium 137 mmol/L (136-145)
[2021-09-29 06:23] LABS: Procalcitonin 0.09 ng/mL (0-0.5)
--- NOTE | 2021-09-29 07:21 | XRR_ITS ---
PROCEDURE INFORMATION: Exam: XR Abdomen Exam date and time: 09/29/2021 7:21 AM Age: 56 years old Clinical indication: Abdominal pain; Generalized; Additional info: Chronic carey cath with leaking. ? Bladder stones TECHNIQUE: Imaging protocol: XR of the abdomen. Views: Frontal supine view of the abdomen. 1 View. Total images: 1 COMPARISON: CR XR chest 1V portable [id number] 09/28/2021 10:06 AM FINDINGS: Tubes, catheters and devices: A gastric feeding tube projects in satisfactory location. Gastrointestinal tract: Bowel gas pattern is nondistended and nonobstructive. Organs: Surgical clips are present in the right upper quadrant which are suggestive of prior cholecystectomy. Questionable 4 mm calcification in the right flank may represent a renal calculus versus intraluminal contents. Vasculature: Atherosclerosis is evident. Bones/joints: Mild scattered degenerative changes of the spine. Diffuse osteopenia noted. Other findings: Moderate stool burden. XR/XR KUB [id number] IMPRESSION: 1. Questionable 4 mm calcification in the right flank may represent a renal calculus versus intraluminal contents. 2. Normal bowel gas pattern 3. Moderate stool burden. Radiation Dose CTDIVOL = (mGy): DLP = (mGy-cm)
--- NOTE | 2021-09-29 07:22 | PM.MISC ---
Miscellaneous Note Note: UROLOGY Spoke with Dr. Campa yesterday about patient and family's request. Complains of leakage around cath. Ordered KUB Will see before he's discharged.
[2021-09-29] MEDS: sodium chloride 3.5% neb 4 mL Neb INHALATION ×2 (08:23→20:10)
[2021-09-29] MEDS: atenolol 50 mg Tablet 100 MG PEG-TUBE (10:36)
[2021-09-29] MEDS: sertraline 50 mg Tablet PEG-TUBE (10:36)
[2021-09-29] MEDS: baclofen 10 mg Tablet 15 MG PEG-TUBE ×5 (10:37→21:19)
[2021-09-29] MEDS: amlodipine 5 mg Tablet PO (10:37)
[2021-09-29] MEDS: gabapentin 300 mg Capsule PEG-TUBE ×3 (10:38→21:17)
[2021-09-29] MEDS: vancomycin 1,000 MG in sodium chloride 0.9% 250 ML 250 MG IV ×2 (11:01→17:24)
[2021-09-29] MEDS: sodium chloride 0.9% 1,000 ML 75 ML IV (11:58)
[2021-09-29] MEDS: enoxaparin 40 mg/0.4 mL Syringe SUBCUT (14:13)
--- NOTE | 2021-09-29 19:59 | P.PN_ITS ---
Subjective Subjective: Interval history: Patient was seen and examined this morning, no acute events overnight.Vitals and labs have been reviewed. Medications: Reviewed: Yes Vitals/I&O/Wt Last Vital Signs Temp 98.1 F 09/29/21 15:19 Pulse 74 09/29/21 15:59 Resp 18 09/29/21 15:59 BP 125/69 09/29/21 15:19 Pulse Ox 95 09/29/21 15:59 09/29/21 09/29/21 09/29/21 06:59 14:59 22:59 Intake Total 933.333 / 4293.781 8747 / 1300 510 / 1810 Output Total 1100 / 2000 1000 / 1000 Balance -166.667 / -963.452 5663 / 1300 -490 / 810 Weight last 48 hrs Weight 66.678 kg Weight 67.585 kg Physical Exam Narrative: EXAM NARRATIVE: Alert and awake HENMT: COMMON NORMALS: normocephalic and atraumatic HEAD & SCALP: normocephalic and atraumatic Resp: OTHER: Minimal bilateral wheezing, no rhonchi no rales Cardio: COMMON NORMALS: regular rate, regular rhythm, S1 normal heart sound present, S2 normal heart sound present, No gallops present (Cardio), No murmurs present (Cardio), No rub (Cardio) and Peripheral pulses 2+ throughout RATE: regular rate RHYTHM: regular rhythm HEART SOUNDS: S1 normal heart sound present and S2 normal heart sound present PERIPHERAL PULSES: Peripheral pulses 2+ throughout GI: COMMON NORMALS: Normal to inspection, nondistended, normoactive bowel sounds present, Soft to palpation, non-tender, No hepatosplenomegaly present and no masses AUSCULTATION: Yes normoactive bowel sounds PALPATION: Yes Soft to palpation and Yes No hepatosplenomegaly present RECTAL EXAM: Yes deferred Extremity: COMMON NORMALS: no clubbing, cyanosis or edema and no pedal edema Data : 09/29/21 05:34 09/29/21 05:34 Micro: Microbiology 09/28/21 11:00 Blood Culture - Preliminary Blood 09/28/21 13:18 Blood Culture - Preliminary Blood NEGATIVE TO DATE 09/28/21 11:00 Urine Culture - Preliminary Urine,Clean Catch Gram Negative Rods Gram Negative Rods#2 A&P Assessment and plan (1) Recurrent aspiration pneumonia: Blood culture: NTD Sputum culture: Monitor x-ray chest Continue Vanco and Zosyn Status: Acute (2) Multiple sclerosis: Status: Acute (3) Chronic indwelling Wei catheter: Status: Acute (4) Hypertension: Amlodipine 5 MG PO DAILY Status: Acute (5) S/P percutaneous endoscopic gastrostomy (PEG) tube placement: Status: Acute Additional A&P Information #XR KUB: Questionable 4 mm calcification in the right flank may represent a renal, calculus versus intraluminal contents.Appreciate urology input Possible UTI: Patient has chronic indwelling Wei catheter: Difficult to interpret urinalysis: Follow urine culture:GNR Empirically on broad-spectrum antibiotics CODE STATUS:DNR/DNI DVT prophylaxis: On Lovenox Attestations Medical Necessity Statement*: Patient needs to be in hospital for the management of PNA. 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
[2021-09-29] MEDS: tamsulosin 0.4 mg Capsule PO (21:19)
--- NOTE | 2021-09-29 22:55 | PC.NUTR ---
NUTR CONSULT: Consult received for pureed foods in peg tube. Discussed with Nutrition services, we do not carry a real foods tube feed formula and do not suggest putting pureed foods in peg tube. Did not complete assessment and will cont to monitor for progress.
[2021-09-30] VITALS (20 sets, daily range): BP systolic 107–138; BP diastolic 66–84; PULSE 18–96; RESP 16–18; TEMP 36.2–36.9; O2SAT 92–98
[2021-09-30] MEDS: ipratropium-albuterol 3 mL Neb INHALATION ×7 (00:24→23:52)
[2021-09-30] MEDS: sodium chloride 0.9% 1,000 ML 75 ML IV ×2 (00:33→14:29)
[2021-09-30] MEDS: vancomycin 1,000 MG in sodium chloride 0.9% 250 ML 250 MG IV ×3 (00:34→16:50)
[2021-09-30] MEDS: HYDROcodone-APAP 7.5-325 mg/15 mL UDC 7.5 ML PO (04:50)
[2021-09-30] MEDS: piperacillin-tazobactam 3.375 GM in sodium chloride 0.9% (plus) 50 ML IV ×3 (04:51→20:35)
[2021-09-30 06:55] LABS: Basophils % 0.4 %; Eosinophils # 0.2 10^3/uL (0.0-0.8); Eosinophils % 2.9 %; Hematocrit 37.1 % (42.0-52.0); Hemoglobin 11.8 g/dL (11.7-16.6); Lymphocytes # 0.6 10^3/uL (0.8-4.8); Lymphocytes % 10.7 %; Mean Corpuscular HGB Conc 31.8 g/dL (30.0-36.0); Mean Corpuscular Hemoglobin 29.1 pg (28.0-34.0); Mean Corpuscular Volume 91.4 fl (80-94); Mean Platelet Volume 10.5 fL (7.4-10.4); Monocytes # 0.6 10^3/uL (0.2-0.9); Monocytes % 10.7 %; Neutrophils # 4.11 10^3/uL (1.8-7.7); Neutrophils % 74.9 %; Nucleated Red Blood Cells % 0 %; Platelet Count 149 10^3/cmm (130-400); Red Blood Count 4.06 10^6/uL (4.1-5.3); White Blood Count 5.5 10^3/uL (4.0-10.0)
[2021-09-30 07:16] LABS: Anion Gap 13.7 (5-19); Blood Urea Nitrogen 5 mg/dL (6-20); Calcium 8.2 mg/dL (8.5-10.5); Carbon Dioxide 22 mmol/L (22-29); Chloride 111 mmol/L (98-107); Glomerular Filtration Rate 171.4 mL/min (90-130); Glucose 113 mg/dL (65-115); Osmolality Calculated 294 mOsm/kg (285-295); Potassium 3.7 mmol/L (3.5-5.1); Sodium 143 mmol/L (136-145)
[2021-09-30] MEDS: sodium chloride 3.5% neb 4 mL Neb INHALATION ×2 (07:31→20:01)
[2021-09-30] MEDS: sertraline 50 mg Tablet PEG-TUBE (08:17)
[2021-09-30] MEDS: tamsulosin 0.4 mg Capsule PO (08:17)
[2021-09-30] MEDS: baclofen 10 mg Tablet 15 MG PEG-TUBE ×4 (08:17→20:51)
[2021-09-30] MEDS: atenolol 50 mg Tablet 100 MG PEG-TUBE (08:17)
[2021-09-30] MEDS: amlodipine 5 mg Tablet PEG-TUBE (08:17)
[2021-09-30] MEDS: gabapentin 300 mg Capsule PEG-TUBE ×3 (08:17→20:51)
[2021-09-30] MEDS: enoxaparin 40 mg/0.4 mL Syringe SUBCUT (14:29)
[2021-09-30 16:47] LABS: Vancomycin Trough 25.7 ug/mL (10-15)
--- NOTE | 2021-09-30 18:17 | PM.PN ---
Subjective Subjective: Interval history: Patient was seen and examined this morning, no acute events overnight.Vitals and labs have been reviewed. Medications: Reviewed: Yes Vitals/I&O/Wt Last Vital Signs Temp 98.5 F 09/30/21 16:00 Pulse 94 09/30/21 16:00 Resp 17 09/30/21 16:00 BP 138/82 09/30/21 16:00 Pulse Ox 94 09/30/21 16:00 09/30/21 09/30/21 09/30/21 06:59 14:59 22:59 Intake Total 1423.75 / 3233.75 1300 / 1300 540 / 1840 Output Total 1550 / 2550 3200 / 3200 Balance -126.25 / 683.75 1300 / 1300 -2660 / -1360 Weight last 48 hrs Weight 66.678 kg Physical Exam Narrative: EXAM NARRATIVE: Alert and awake HENMT: COMMON NORMALS: normocephalic and atraumatic HEAD & SCALP: normocephalic and atraumatic Resp: OTHER: Minimal bilateral wheezing, no rhonchi no rales Cardio: COMMON NORMALS: regular rate, regular rhythm, S1 normal heart sound present, S2 normal heart sound present, No gallops present (Cardio), No murmurs present (Cardio), No rub (Cardio) and Peripheral pulses 2+ throughout RATE: regular rate RHYTHM: regular rhythm HEART SOUNDS: S1 normal heart sound present and S2 normal heart sound present PERIPHERAL PULSES: Peripheral pulses 2+ throughout GI: COMMON NORMALS: Normal to inspection, nondistended, normoactive bowel sounds present, Soft to palpation, non-tender, No hepatosplenomegaly present and no masses AUSCULTATION: Yes normoactive bowel sounds PALPATION: Yes Soft to palpation and Yes No hepatosplenomegaly present RECTAL EXAM: Yes deferred Extremity: COMMON NORMALS: no clubbing, cyanosis or edema and no pedal edema Data : 09/30/21 06:19 09/30/21 06:19 Micro: Microbiology 09/28/21 11:00 Urine Culture - Preliminary Urine,Clean Catch Klebsiella oxytoca esbl Gram Negative Rods#2 09/28/21 11:00 Blood Culture - Preliminary Blood 09/28/21 13:18 Blood Culture - Preliminary Blood NEGATIVE TO DATE A&P Assessment and plan (1) Recurrent aspiration pneumonia: Blood culture: NTD Sputum culture: Monitor x-ray chest Initially on vancomycin Vanco and Continue Zosyn Status: Acute (2) Multiple sclerosis: Status: Acute (3) Chronic indwelling Wei catheter: Urine culture is growing: Klebsiella Oxytoca esbl: Likely colonization: Currently appropriately covered with Zosyn. Will dc Abxs on discharge Status: Acute (4) Hypertension: Amlodipine 5 MG PO DAILY Status: Acute (5) S/P percutaneous endoscopic gastrostomy (PEG) tube placement: Status: Acute Additional A&P Information #XR KUB: Questionable 4 mm calcification in the right flank may represent a renal, calculus versus intraluminal contents.Appreciate urology input CODE STATUS:DNR/DNI DVT prophylaxis: On Lovenox Attestations Medical Necessity Statement*: Patient is due to return to custodial in the morning. Coding Level of Care Code Acute Supervisor Fusing Room for Macie Fwd Exam Expanded Problem Focused Diagnoses Recurrent aspiration pneumonia J69.0 Multiple sclerosis G35 Chronic indwelling Wei catheter Z97.8 Hypertension I10 S/P percutaneous endoscopic gastrostomy (PEG) tube placement Z93.1
[2021-10-01] VITALS (7 sets, daily range): BP systolic 131–143; BP diastolic 74–79; PULSE 68–91; RESP 16–18; TEMP 36.5–36.8; O2SAT 94–97
[2021-10-01] MEDS: piperacillin-tazobactam 3.375 GM in sodium chloride 0.9% (plus) 50 ML IV ×2 (04:06→11:39)
[2021-10-01] MEDS: sodium chloride 0.9% 1,000 ML 75 ML IV (04:10)
--- NOTE | 2021-10-01 05:24 | PC.NURSE ---
SHIFT SUMMARY Has rested well. Repositioned through shift. Is particular about positioning of arms/hands. Positioned per pts wishes. Is not able to move self due to MS. Contractures of extremities present. Mom stays with pt. Meds given per G-tube LUQ abdomen. Also receives his food this way. Wei with good urine output this shift. IV infusing and receiving IV antibiotics as ordered. Mom is hoping he will return [place] [facility] [place]
[2021-10-01 05:59] LABS: Basophils % 0.4 %; Eosinophils # 0.2 10^3/uL (0.0-0.8); Eosinophils % 3.6 %; Hematocrit 38.2 % (42.0-52.0); Hemoglobin 12.6 g/dL (11.7-16.6); Lymphocytes # 0.7 10^3/uL (0.8-4.8); Lymphocytes % 13.6 %; Mean Corpuscular Hemoglobin 29.2 pg (28.0-34.0); Mean Corpuscular Volume 88.4 fl (80-94); Monocytes # 0.7 10^3/uL (0.2-0.9); Neutrophils # 3.67 10^3/uL (1.8-7.7); Neutrophils % 69.2 %; Nucleated Red Blood Cells % 0 %; Platelet Count 141 10^3/cmm (130-400); Red Blood Count 4.32 10^6/uL (4.1-5.3); White Blood Count 5.3 10^3/uL (4.0-10.0)
[2021-10-01 06:11] LABS: Blood Urea Nitrogen 6 mg/dL (6-20); Calcium 8.2 mg/dL (8.5-10.5); Carbon Dioxide 21 mmol/L (22-29); Chloride 108 mmol/L (98-107); Glucose 85 mg/dL (65-115); Osmolality Calculated 285 mOsm/kg (285-295); Sodium 139 mmol/L (136-145)
[2021-10-01 06:15] LABS: Anion Gap 13.6 (5-19); Potassium 3.6 mmol/L (3.5-5.1)
[2021-10-01] MEDS: baclofen 10 mg Tablet 15 MG PEG-TUBE (08:16)
[2021-10-01] MEDS: tamsulosin 0.4 mg Capsule PO (08:17)
[2021-10-01] MEDS: atenolol 50 mg Tablet 100 MG PEG-TUBE (08:17)
[2021-10-01] MEDS: amlodipine 5 mg Tablet PEG-TUBE (08:17)
[2021-10-01] MEDS: gabapentin 300 mg Capsule PEG-TUBE (08:17)
[2021-10-01] MEDS: sertraline 50 mg Tablet PEG-TUBE (08:17)
[2021-10-01] MEDS: sodium chloride 3.5% neb 4 mL Neb INHALATION (08:33)
[2021-10-01] MEDS: ipratropium-albuterol 3 mL Neb INHALATION ×2 (08:33→12:02)
--- NOTE | 2021-10-01 09:23 | PC.SOCIAL ---
Addendum entered by Jennifer Garrison RN 10/01/21 09:23: Updated with patient and his mother/DPOA at bedside. Original Note: IMM Update Pg. 2 of IMM updated and reviewed with patient, who verbalized understanding. Copy provided.
--- NOTE | 2021-10-01 12:06 | P.DS_ITS ---
Discharge Providers Date of Admission: 09/28/21 12:37 Date of Discharge: October 01, 2021 Attending Provider at Admission: Twan Campa MD Attending Provider at Discharge: Conner Tapia MD Primary Care Provider: Christy Sanchez MD, [facility] [place] Diagnoses at Discharge Discharge Diagnosis (1) Recurrent aspiration pneumonia: Status: Acute (2) Multiple sclerosis: Status: Acute (3) Chronic indwelling Wei catheter: Status: Acute (4) Hypertension: Status: Acute (5) S/P percutaneous endoscopic gastrostomy (PEG) tube placement: Status: Acute Reason for Visit Reason for Visit: MS, PNEUMONIA, NG TUBE, LOW O2 SAT Hospital Course Hospital Course 56 year old male hypertension, barretts esophagus, chronic constipation, advanced multiple sclerosis with significant debility, bed bound, chronic sacral decubitus ulcer, dysphagia status post g- tube, severe chronic bladder outlet obstruction with indwelling Wei, and recurrent hospitalizations for respiratory failure due to aspiration pneumonia was brought in again today from the skilled nursing after concerns of aspiration pneumonia, Patient was admitted [facility] for recurrent aspiration pneumonia, managed on broad-spectrum antibiotic therapy, clinically improved, discharged on 7 remaining days of Augmentin and doxycycline given past medical history of MRSA positive sputum cultures. 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 Given patient's Klebsiella oxytoca ESBL, multidrug-resistant, only IV antibiotics would suffice, he has finished 3 days of inpatient IV antibiotics, has clinically improved, decision was made to discontinue IV antibiotic after 3 days of treatment. But his Klebsiella oxytoca is sensitive to Augmentin as above. Physical Exam Const: GENERAL APPEARANCE: cooperative ORIENTATION/CONSCIOUSNESS: Yes awake, Yes oriented to person and Yes oriented to place; not oriented to time Resp: COMMON NORMALS: normal respiratory effort, No retractions, No use of accessory muscles and clear to auscultation bilaterally AUSCULTATION: clear to auscultation bilaterally Cardio: COMMON NORMALS: regular rate, regular rhythm, S1 normal heart sound present and S2 normal heart sound present RATE: regular rate RHYTHM: regular rhythm HEART SOUNDS: S1 normal heart sound present and S2 normal heart sound present GI: COMMON NORMALS: Normal to inspection, nondistended, normoactive bowel sounds present, Soft to palpation and non-tender PALPATION: Yes Soft to palpation Extremity: COMMON NORMALS: no pedal edema Neuro: SENSORIUM/ORIENTATION: Yes oriented to person, Yes oriented to place and No oriented to time Discharge Data Data Completed and Pending: Completed Studies During Hospitalization Category Date Time Status XR KUB [id number] Rout ine Exams 09/29/21 07:21 Completed XR chest 1V candy ble [id number] Urgent Exams 09/28/21 10:02 Completed Pending at discharge Category Date Time Status Blood Culture Sta t Lab 09/28/21 13:18 Results Urine Culture Sta t Lab 09/28/21 11:00 Results Labs from last 24 hours 10/01/21 10/01/21 09/30/21 05:27 05:27 16:15 WBC 5.3 RBC 4.32 Hgb 12.6 Hct 38.2 L MCV 88.4 MCH 29.2 MCHC 33.0 RDW 15.0 Plt Count 141 MPV 11.0 H Neut % (Auto) 69.2 Lymph % (Auto) 13.6 [place] % (Auto) 13.0 Eos % (Auto) 3.6 Baso % (Auto) 0.4 Neut # (Auto) 3.67 Lymph # (Auto) 0.7 L [place] # (Auto) 0.7 Eos # (Auto) 0.2 Baso # (Auto) 0.0 Nucleated RBC % (a uto) 0 Nucleated RBCs # 0.0 Sodium 139 Potassium 3.6 Chloride 108 H Carbon Dioxide 21 L Anion Gap 13.6 BUN 6 Creatinine 0.1 L GFR Calculation 1098.0 H Glucose 85 Calculated Osmolal ity 285 Calcium 8.2 L Vancomycin Trough 25.7 H* Vitals: Last Vital Signs Temp 98.3 F 10/01/21 11:43 Pulse 69 10/01/21 11:43 Resp 17 10/01/21 11:43 BP 138/77 10/01/21 11:43 Pulse Ox 96 10/01/21 11:43 Discharge Plan Discharge Patient Disposition: Home Condition: Stable Prescriptions: New amlodipine 5 mg Tablet 5 mg peg-tube DAILY 30 Days Qty: 30 RF: 0 tamsulosin 0.4 mg Capsule 0.4 mg PO DAILY 30 Days Qty: 30 RF: 0 Augmentin 875-125 mg tablet 1 tab PO BID 7 Days Qty: 14 RF: 0 doxycycline hyclate 100 mg capsule 100 mg PO BID 7 Days Qty: 14 RF: 0 Continued sulfamethoxazole-trimethoprim 800-160 mg tablet 1 tab PO .3 TIMES WEEKLY Qty: 0 RF: 0 multivitamin Tablet 1 tab feeding tube DAILY@08 RF: 0 albuterol sulfate 2.5 mg /3 mL (0.083 %) Solution For Nebulization 2.5 mg INHALATION Q4H PRN (Reason: Shortness Of Breath) RF: 0 cetirizine 10 mg Tablet 10 mg feeding tube DAILY@08 RF: 0 atenolol 100 mg Tablet 100 mg feeding tube DAILY RF: 0 hydrocodone-acetaminophen 10-325 mg Tablet 1 tab feeding tube Q4H PRN (Reason: Pain) RF: 0 calcium carbonate 500 mg calcium (1,250 mg) Tablet 500 mg feeding tube DAILY PRN (Reason: Acid Reflux) RF: 0 baclofen 10 mg Tablet 15 mg feeding tube QID RF: 0 gabapentin 300 mg Capsule 300 mg feeding tube TID@08,,20 RF: 0 sertraline 50 mg Tablet 50 mg feeding tube DAILY@08 RF: 0 Aubagio 14 mg Tablet 14 mg feeding tube DAILY@08 RF: 0 acetaminophen [Tylenol] 325 mg Tablet 650 mg feeding tube Q6H PRN (Reason: Pain) RF: 0 sennosides-docusate sodium [Senna-S] 8.6-50 mg Tablet See Rx Instructions .ROUTE .COMPLEX RF: 0 loperamide 2 mg Tablet 2 mg feeding tube Q4H PRN (Reason: Diarrhea) RF: 0 magnesium hydroxide [Milk of Magnesia] 400 mg/5 mL Suspension 30 ml feeding tube DAILY PRN (Reason: Constipation) RF: 0 bisacodyl 10 mg Suppository 10 mg MS DAILY PRN (Reason: Constipation) RF: 0 diphenhydramine HCl [Benadryl] 25 mg Capsule 25 mg feeding tube Q6H PRN (Reason: Allergy Symptoms) RF: 0 Enema Disposable 19-7 gram/118 mL Enema 118 ml MS DAILY PRN (Reason: Constipation) RF: 0 Acidophilus-Pectin 75 million cell -100 mg Capsule See Rx Instructions .ROUTE .COMPLEX RF: 0 Prostat Liquid 30 ml feeding tube TID RF: 0 ondansetron HCl 4 mg Tablet 4 mg feeding tube Q8H PRN (Reason: Nausea And Vomiting) RF: 0 potassium chloride 20 mEq/15 mL liquid 20 meq feeding tube BID@08,20 RF: 0 Lubricant Eye (PG-PEG 400) 0.4-0.3 % Drops 2 drp ophthalmic (eye) QID PRN (Reason: Dry Eyes) RF: 0 MediHoney (honey) 80 % Gel See Rx Instructions .ROUTE .COMPLEX RF: 0 acetylcysteine 200 mg/mL (20 %) Solution 100 mg inhalation BID Qty: 30 RF: 0 Hyper-Brennan 3.5 % Solution For Nebulization 4 ml inhalation BID Qty: 240 RF: 0 Discharge Orders: Discharge Order (Routine); Ordered 10/01/21 Ordered By: Conner Tapia Discharge Diet: Cardiac Discharge Activity: Resume usual activity Patient Instructions: Opioid Safety Discharge Attestations Time Spent in Discharge Care*: less than 30 min Status at Discharge: Cognitive status at discharge: cognitively intact , Behavioral status at discharge: cooperative , Quality Metrics Clinical Quality Measures During this hospital stay, did patient experience: None Coding Level of Care Code Acute Chg FW DC note Diagnoses Recurrent aspiration pneumonia J69.0 Multiple sclerosis G35 Chronic indwelling Wei catheter Z97.8 Hypertension I10 S/P percutaneous endoscopic gastrostomy (PEG) tube placement Z93.1
== END 2021-10-01 14:45 | disposition skilled nursing facility (03) | DRG 178 ==
LOC: ER 13:23 → MEDSURG 18:03
PROVIDERS: Physician Assistant; Admitting Provider Internal Medicine; Emergency Provider Family Medicine; PCP Family Medicine; Visit Provider Family Medicine
DX: J69.0 Pneumonitis due to inhalation of food and vomit (principal); T83.511A Infection and inflammatory reaction due to indwelling urethral catheter, initial encounter; Z16.30 Resistance to unspecified antimicrobial drugs; J96.11 Chronic respiratory failure with hypoxia; G35 Multiple sclerosis; Z93.1 Gastrostomy status; I10 Essential (primary) hypertension; Z87.01 Personal history of pneumonia (recurrent); F32.A Depression, unspecified; Z66 Do not resuscitate; K22.70 Barrett's esophagus without dysplasia; K59.09 Other constipation; Z74.01 Bed confinement status; L89.159 Pressure ulcer of sacral region, unspecified stage; N32.0 Bladder-neck obstruction; Y73.1 Therapeutic (nonsurgical) and rehabilitative gastroenterology and urology devices associated with adverse incidents; R13.10 Dysphagia, unspecified; B96.1 Klebsiella pneumoniae [K. pneumoniae] as the cause of diseases classified elsewhere; Z79.891 Long term (current) use of opiate analgesic; Z79.51 Long term (current) use of inhaled steroids
CPT/HCPCS: 36415; 36600; 71045; 74018; 80048; 80051; 80053; 80202; 81001; 82330; 82805; 83605; 84145; 84484; 85025; 87040; 87077; 87086; 87186; 87205; 87426; 93005; 94640; 96365; 96367; 96372; 96375; 99285; J1650; J1885; J2405; J2543; J3370; J7030; J7050; J7608

== ENCOUNTER → 2022-03-01 10:31 | Outpatient (BNVA) | payer MEDICARE, MEDICAID, SELFPAY | PROVIDERS: PCP Family Medicine; Visit Provider Internal Medicine Pulmonary Disease | DX: Z09 Encounter for follow-up examination after completed treatment for conditions other than malignant neoplasm (principal); Z66 Do not resuscitate; J96.21 Acute and chronic respiratory failure with hypoxia; J69.0 Pneumonitis due to inhalation of food and vomit; Z93.1 Gastrostomy status; G35 Multiple sclerosis | CPT/HCPCS: 99214 ==

== ENCOUNTER → 2022-07-10 14:17 | Outpatient (BNVA) | payer MEDICARE, MEDICAID, SELFPAY | PROVIDERS: PCP Family Medicine; Visit Provider Nurse Practitioner Family | DX: N31.9 Neuromuscular dysfunction of bladder, unspecified (principal); N39.0 Urinary tract infection, site not specified; Z97.8 Presence of other specified devices | CPT/HCPCS: 99212 ==

== ENCOUNTER → 2022-09-12 10:27 | Outpatient (BNVA) | payer MEDICARE, MEDICAID, SELFPAY | PROVIDERS: PCP Family Medicine; Visit Provider Internal Medicine Pulmonary Disease | DX: J96.21 Acute and chronic respiratory failure with hypoxia (principal); Z66 Do not resuscitate; Z93.1 Gastrostomy status; G35 Multiple sclerosis; Z91.89 Other specified personal risk factors, not elsewhere classified; Z86.14 Personal history of Methicillin resistant Staphylococcus aureus infection | CPT/HCPCS: 99214 ==

== ENCOUNTER → 2023-06-19 15:06 | Outpatient (BNVA) | payer MEDICARE, MEDICAID, SELFPAY | PROVIDERS: PCP Family Medicine; Visit Provider Internal Medicine Pulmonary Disease | DX: J96.21 Acute and chronic respiratory failure with hypoxia (principal); Z66 Do not resuscitate; G35 Multiple sclerosis; Z93.1 Gastrostomy status; Z87.01 Personal history of pneumonia (recurrent) | CPT/HCPCS: 99214 ==

== ENCOUNTER → 2024-02-11 14:58 | Outpatient (BNVA) | payer MEDICARE, MEDICAID, SELFPAY | PROVIDERS: PCP Family Medicine; Visit Provider Internal Medicine Pulmonary Disease | DX: Z66 Do not resuscitate; J96.21 Acute and chronic respiratory failure with hypoxia; J69.0 Pneumonitis due to inhalation of food and vomit; Z93.1 Gastrostomy status; G35 Multiple sclerosis | CPT/HCPCS: 99214 ==

== ENCOUNTER → 2024-06-24 15:04 | Outpatient (BNVA) | payer MEDICARE, MEDICAID, SELFPAY | PROVIDERS: PCP Family Medicine; Visit Provider Internal Medicine Critical Care Medicine | DX: G35 Multiple sclerosis (principal); J69.0 Pneumonitis due to inhalation of food and vomit; Z66 Do not resuscitate; Z93.1 Gastrostomy status | CPT/HCPCS: 99213 ==

== ENCOUNTER 2025-09-15 10:06 | Outpatient (CLI) | payer MEDICARE, MEDICAID, SELFPAY ==
[2025-09-15 10:24] LABS: ABG PCO2 39.3 mmHg (35-45); ABG PH Result 7.44 (7.35-7.45); Alveolar-Arterial Oxygen Gradi 4.3 mmHg (5-10); Arterial Blood Gas Hematocrit 46.0 % (42-52); Blood Gas Allen Test Pos; Blood Gas Operator Identificat BROMA; Blood Gas Sample Site Radial, right; Blood Gas Sample Type Arterial; Carboxyhemoglobin 2.0 %THgb (0.4-20.1); Glucose Level-ABG 112.0 mg/dL (70-115); HCO3 ABG 26.9 mmol/L (22-26); Ionized Calcium Level - ABG 1.2 mmol/L (1.1-1.4); Methemoglobin 0.7 % (0.4-1.5); Oxygen Saturation ABG 95.8; PO2 ABG 68.5 mmHg (80.0-100.0); PO2 FiO2 Ratio Arterial Blood 326; Potassium Level - ABG 3.6 mmol/L (3.5-5.0); Sodium Level - ABG 137.0 mmol/L (131-143)
== END 2025-09-15 10:07 | disposition home or self-care (01) ==
LOC: LAB 10:08
PROVIDERS: PCP Family Medicine; Visit Provider Internal Medicine
DX: R91.8 Other nonspecific abnormal finding of lung field (principal); J96.10 Chronic respiratory failure, unspecified whether with hypoxia or hypercapnia; J42 Unspecified chronic bronchitis; J98.4 Other disorders of lung; J69.0 Pneumonitis due to inhalation of food and vomit; Z93.1 Gastrostomy status; Z96.0 Presence of urogenital implants
CPT/HCPCS: 36600; 80051; 82330; 82805; 99214; Q3014